=== PATIENT | male | born 1940 | race Caucasian/White ===

== ENCOUNTER 2018-12-24 18:16 | Observation (INO) | payer MEDICARE ==
[2018-12-24] MEDS ORDERED: Albuterol 0.083% Inhal Sol (2.5 mg/3 mL) UD INH STA (18:52)
[2018-12-24 19:01] LABS: BASO % 0.4 % (0.0-2.0); EOS # 0.5 K/uL (0.0-0.7); EOS % 5.4 % (0.0-4.0); HEMOGLOBIN 15.4 g/dL (12.0-18.0); LYMPH # 1.1 K/uL (1.0-4.3); LYMPH % 11.9 % (20.0-40.0); MEAN CELL VOLUME 92.2 fL (80.0-94.0); MEAN CORPUSCULAR HEMOGLOBIN 29.8 pg (27.0-31.0); MEAN CORPUSCULAR HGB CONC 32.3 g/dL (33.0-37.0); MEAN PLATELET VOLUME 7.8 fL (7.2-11.7); MONO # 0.9 K/uL (0.0-0.8); MONO % 9.6 % (0.0-10.0); NEUT # 6.7 K/uL (1.8-7.0); NEUT % 72.7 % (50.0-75.0); NRBC % 0.1 % (0.0-2.0); RBC 5.18 Mil/uL (4.40-5.90); RED CELL DISTRIBUTION WIDTH 14.1 % (11.5-14.5); WHITE BLOOD COUNT 9.2 K/uL (4.8-10.8)
[2018-12-24 19:12] LABS: INR 1.1; PROTHROMBIN TIME 11.8 SECONDS (9.7-12.2)
[2018-12-24] MEDS ORDERED: Albuterol 0.083% Inhal Sol (2.5 mg/3 mL) UD ONE (19:16)
[2018-12-24 19:51] LABS: ALB/GLOB RATIO 1.3 (1.0-2.1); ALBUMIN 4.2 g/dL (3.5-5.0); CALCIUM 9.9 mg/dl (8.6-10.4)
--- NOTE | 2018-12-24 19:55 | C.PDOC ---
History Of Present Illness 78 y/o male pt presents to the ER with family c/o SOB for x2 days. Pt reports pain is worse with exertion. Pt denies chest pain, chills, fever and cough. Time Seen by Provider: 12/24/18 18:43 Chief Complaint (Nursing): Shortness Of Breath History Per: Patient History/Exam Limitations: no limitations Onset/Duration Of Symptoms: Days (x2) Current Symptoms Are (Timing): Still Present Exacerbating Factor(s): Exertion Past Medical History Reviewed: Historical Data, Nursing Documentation, Vital Signs Vital Signs: Last Vital Signs Temp 99.7 F H 12/24/18 18:23 Pulse 93 H 12/24/18 18:23 Resp 18 12/24/18 18:30 BP 177/84 H 12/24/18 18:23 Pulse Ox 97 12/24/18 18:30 - Medical History PMH: HTN Surgical History: CABG - [facility] Procedures CORONAR ARTERIOGR-2 CATH (08/19/04) LEFT HEART CARDIAC CATH (08/19/04) LT HEART ANGIOCARDIOGRAM (08/19/04) Family History: States: No Known Family Hx - Social History Hx Alcohol Use: No Hx Substance Use: No Review Of Systems Except As Marked, All Systems Reviewed And Found Negative. Respiratory: Positive for: Shortness of Breath Physical Exam - Physical Exam Appears: Non-toxic, No Acute Distress Skin: Normal Color, Warm, Dry Head: Atraumatic, Normacephalic Eye(s): bilateral: Normal Inspection, PERRL, EOMI Nose: Normal Oral Mucosa: Moist Chest: Symmetrical Cardiovascular: Rhythm Regular, No Murmur Respiratory: No Accessory Muscle Use, No Rales, No Rhonchi, No Stridor, Wheezing (expiratory; b/l ) Gastrointestinal/Abdominal: Normal Exam, Soft, No Tenderness, No Distention Extremity: Normal ROM Extremity: Bilateral: Atraumatic, Normal Color And Temperature Neurological/Psych: Oriented x3, Normal Speech ED Course And Treatment - Laboratory Results Result Diagrams: 12/24/18 18:50 12/24/18 19:28 Lab Results: PT 11.8 SECONDS (9.7-12.2) 12/24/18 18:50 INR 1.1 12/24/18 18:50 APTT 35 SECONDS (21-34) H 12/24/18 18:50 D-Dimer, Quantitative Cancelled 12/24/18 18:50 Total Bilirubin 0.9 mg/dL (0.2-1.3) 12/24/18 19:28 AST 29 U/L (17-59) 12/24/18 19:28 ALT 17 U/L (21-72) L 12/24/18 19:28 Alkaline Phosphatase 64 U/L (38-126) 12/24/18 19:28 Total Protein 7.4 g/dL (6.3-8.3) 12/24/18 19:28 Albumin 4.2 g/dL (3.5-5.0) 12/24/18 19:28 Globulin 3.2 gm/dL (2.2-3.9) 12/24/18 19:28 Albumin/Globulin Ratio 1.3 (1.0-2.1) 12/24/18 19:28 ECG: Interpreted By Me, Viewed By Me ECG Rhythm: Sinus Rhythm Interpretation Of ECst degree AV block, incomplete RBBB, poor R wave progression, no ST/T wave abnormality Rate From EC O2 Sat by Pulse Oximetry: 97 (RA) Pulse Ox Interpretation: Normal Medical Decision Making Medical Decision Making: Assessment: SOB with b/l expiratory wheeze plans: -- chem labs -- blood work -- EKG -- CXR -- albuterol Disposition Discussed With : Yolanda García Counseled Patient/Family Regarding: Studies Performed, Diagnosis - Disposition Disposition: HOSPITALIZED Disposition Time: 20:15 Condition: FAIR Forms: [facility] (Polish) - Clinical Impression Clinical Impression: SOB (shortness of breath) - Scribe Statement The provider has reviewed the documentation as recorded by the Jovana Barriga Do Provider Attestation: All medical record entries made by the Scribe were at my direction and personally dictated by me. I have reviewed the chart and agree that the record accurately reflects my personal performance of the history, physical exam, medical decision making, and the department course for this patient. I have also personally directed, reviewed, and agree with the discharge instructions and disposition.
[2018-12-24 20:03] LABS: TROPONIN I 0.015 ng/mL (0.00-0.120)
[2018-12-24] MEDS ORDERED: Iohexol 350mg/ml 100 ML ONE (21:10)
[2018-12-24] MEDS: (Lantus) Insulin Glargine, Recombinant SC SCH (23:27)
[2018-12-24] MEDS: Albuterol-Ipratrop 3 mg / 0.5 (3 ml) UD INH SCH (23:58)
[2018-12-25 02:18] LABS: CK-MB 1.5 ng/mL (0.0-3.38); TROPONIN I 0.021 ng/mL (0.00-0.120)
[2018-12-25] MEDS: Albuterol-Ipratrop 3 mg / 0.5 (3 ml) UD INH SCH ×5 (03:22→20:05)
[2018-12-25] MEDS: (Novolog) Insulin Aspart, Recombinant 100 u/ml 10 ml vial SC SCH ×4 (08:38→22:05)
[2018-12-25 09:23] LABS: CK-MB 1.58 ng/mL (0.0-3.38)
[2018-12-25] MEDS: Enoxaparin 40 mg Syringe SC SCH (09:31)
[2018-12-25] MEDS: Multiple Vitamins Tab PO SCH (09:31)
--- NOTE | 2018-12-25 10:30 | CT ---
Date of service: 12/24/2018 PROCEDURE: CT Chest with contrast (Pulmonary Angiogram) HISTORY: r/o pe COMPARISON: None available. TECHNIQUE: Axial computed tomography images were obtained of the chest in the pulmonary arterial phase of enhancement. Coronal and sagittal reformatted images were created and reviewed. Intravenous contrast dose: 100 mL of Omnipaque 350 intravenously. Radiation dose: Total exam DLP = 619.04 mGy-cm. This CT exam was performed using one or more of the following dose reduction techniques: Automated exposure control, adjustment of the mA and/or kV according to patient size, and/or use of iterative reconstruction technique. FINDINGS: PULMONARY ARTERIES: Unremarkable. No pulmonary embolism. AORTA: The thoracic aorta is ectatic and tortuous. Small foci of atherosclerotic calcification are noted. LUNGS: [id number] pulmonary vascular congestion noted. No evidence of pneumonia or mass lesion in the lungs. PLEURAL SPACES: Unremarkable. No effusion or pneumothorax. HEART: The heart is mildly to moderately enlarged. No pericardial effusion is noted. LYMPH NODES: No lymphadenopathy. BONES, CHEST WALL: Unremarkable. No fracture or destructive lesion OTHER FINDINGS: Partially calcified nodule at the left thyroid gland is noted. The thyroid gland is heterogeneous. IMPRESSION: No evidence of acute pulmonary embolus. Cardiomegaly and mild pulmonary vascular congestion. Status post CABG surgery. Preliminary report was submitted by [facility] contains concordant findings.
[2018-12-25] MEDS ORDERED: SIMVASTATIN 20 MG PO SCH (14:45)
[2018-12-25] MEDS ORDERED: MethylPREDNISolone 40 mg Vial IVP ONE (15:00)
--- NOTE | 2018-12-25 15:00 | CP.PCM.HP ---
History of Present Illness - History of Present Illness History of Present Illness: This is an 78 y/o male with known history of CAD, S/P CABG more than 10 years ago, DM and HTN who was brought to the hospital because of shortness of breath. 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 He rportely developed runny nose but denies any cough at this time. He also noted some pedal edema at the same time. He denies any chest pain, palpitations, dizziness and syncope. He went to the ER for further eval and treatment and was eventually admitted. Present on Admission - Present on Admission Any Indicators Present on Admission: No Review of Systems - Constitutional Constitutional: Weakness - EENT Nose/Mouth/Throat: Nasal Congestion - Cardiovascular Cardiovascular: Dyspnea, Dyspnea on Exertion, Edema, Leg Edema, Pedal Edema - Respiratory Respiratory: Dyspnea, Dyspnea on Exertion, Wheezing - Gastrointestinal Gastrointestinal: As Per HPI - Genitourinary Genitourinary: As Per HPI Past Patient History - Past Medical History & Family History Past Medical History?: Yes - Past Social History Smoking Status: Never Smoked Alcohol: Social Drugs: Denies Home Situation {Lives}: With Family - CARDIAC Hx Cardiac Disorders: Yes (CAD, S/P CABG) Hx Hypertension: Yes - ENDOCRINE/METABOLIC Hx Endocrine Disorders: Yes Hx Diabetes Mellitus Type 2: Yes - MUSCULOSKELETAL/RHEUMATOLOGICAL Hx Arthritis: Yes Hx Falls: No - PSYCHIATRIC Hx Psychophysiologic Disorder: No Hx Substance Use: No - SURGICAL HISTORY Hx Coronary Artery Bypass Graft: Yes - ANESTHESIA Hx Anesthesia: Yes Hx Anesthesia Reactions: No Hx Malignant Hyperthermia: No Has any member of the family had a problem w/ anesthesia?: No Meds Allergies/Adverse Reactions: Allergies Allergy/AdvReac Type Severity Reaction Status Date / Time No Known Allergies Allergy Unverified 12/24/18 18:27 Physical Exam - Constitutional Appears: No Acute Distress - Eye Exam Eye Exam: Normal appearance - ENT Exam ENT Exam: Normal Exam - Neck Exam Neck exam: Positive for: Full Rom - Respiratory Exam Respiratory Exam: Rhonchi, Wheezes - Cardiovascular Exam Cardiovascular Exam: REGULAR RHYTHM, +S1, +S2 - GI/Abdominal Exam GI & Abdominal Exam: Normal Bowel Sounds, Soft - Rectal Exam Rectal Exam: Deferred - Extremities Exam Extremities exam: Positive for: normal inspection, pedal edema - Neurological Exam Neurological exam: Alert, Oriented x3 - Psychiatric Exam Psychiatric exam: Normal Affect, Normal Mood - Skin Skin Exam: Dry, Intact, Normal Color, Warm Results - Vital Signs Recent Vital Signs: Last Vital Signs Temp 98 F 12/25/18 11:52 Pulse 80 12/25/18 12:00 Resp 20 12/25/18 11:52 BP 150/75 12/25/18 11:52 Pulse Ox 95 12/25/18 11:52 - Labs Result Diagrams: 12/24/18 18:50 12/24/18 19:28 Labs: Laboratory Results - last 24 hr 12/24/18 12/24/18 12/24/18 18:50 18:50 19:28 WBC 9.2 RBC 5.18 Hgb 15.4 Hct 47.7 MCV 92.2 MCH 29.8 MCHC 32.3 L RDW 14.1 Plt Count 239 MPV 7.8 Neut % (Auto) 72.7 Lymph % (Auto) 11.9 L [place] % (Auto) 9.6 Eos % (Auto) 5.4 H Baso % (Auto) 0.4 Neut # (Auto) 6.7 Lymph # (Auto) 1.1 [place] # (Auto) 0.9 H Eos # (Auto) 0.5 Baso # (Auto) 0.0 PT 11.8 INR 1.1 APTT 35 H D-Dimer, Quantitative Cancelled Sodium 136 Potassium 4.2 Chloride 98 Carbon Dioxide 29 Anion Gap 13 BUN 22 H Creatinine 1.5 Est GFR ( Amer) 54 Est GFR (Non-Af Amer) 45 POC Glucose (mg/dL) Random Glucose 183 H Calcium 9.9 Total Bilirubin 0.9 AST 29 ALT 17 L Alkaline Phosphatase 64 Total Creatine Kinase CK-MB (Mass) Troponin I 0.0150 NT-Pro-B Natriuret Pep 365 Total Protein 7.4 Albumin 4.2 Globulin 3.2 Albumin/Globulin Ratio 1.3 12/24/18 12/25/18 12/25/18 20:27 01:52 06:18 WBC RBC Hgb Hct MCV MCH MCHC RDW Plt Count MPV Neut % (Auto) Lymph % (Auto) [place] % (Auto) Eos % (Auto) Baso % (Auto) Neut # (Auto) Lymph # (Auto) [place] # (Auto) Eos # (Auto) Baso # (Auto) PT INR APTT D-Dimer, Quantitative 459 H Sodium Potassium Chloride Carbon Dioxide Anion Gap BUN Creatinine Est GFR ( Amer) Est GFR (Non-Af Amer) POC Glucose (mg/dL) 188 H Random Glucose Calcium Total Bilirubin AST ALT Alkaline Phosphatase Total Creatine Kinase 128 CK-MB (Mass) 1.50 Troponin I 0.0210 NT-Pro-B Natriuret Pep Total Protein Albumin Globulin Albumin/Globulin Ratio 12/25/18 12/25/18 08:30 11:18 WBC RBC Hgb Hct MCV MCH MCHC RDW Plt Count MPV Neut % (Auto) Lymph % (Auto) [place] % (Auto) Eos % (Auto) Baso % (Auto) Neut # (Auto) Lymph # (Auto) [place] # (Auto) Eos # (Auto) Baso # (Auto) PT INR APTT D-Dimer, Quantitative Sodium Potassium Chloride Carbon Dioxide Anion Gap BUN Creatinine Est GFR ( Amer) Est GFR (Non-Af Amer) POC Glucose (mg/dL) 303 H Random Glucose Calcium Total Bilirubin AST ALT Alkaline Phosphatase Total Creatine Kinase 117 CK-MB (Mass) 1.58 Troponin I < 0.0120 NT-Pro-B Natriuret Pep Total Protein Albumin Globulin Albumin/Globulin Ratio Assessment & Plan (1) SOB (shortness of breath) Assessment and Plan: CHF and/or COPD- will continue O2, Nebulizer treatments, add Solu- medrol for now. Lasix 40 mg ordered. Measure I/O Status: Acute Priority: High (2) CAD (coronary artery disease) Assessment and Plan: History of CAD S/P CABG. Will get serial enzymes and EKG. Continue rest of his meds. Status: Chronic Priority: High (3) Type 2 diabetes mellitus Assessment and Plan: Will put on Accucheck and hypoglycemic agents. Will put patient back on Tresiba. Status: Chronic Priority: High (4) Hypertension Assessment and Plan: not well-controlled at this time. Will adjust meds for now Status: Chronic Priority: High (5) Hyperlipidemia associated with type 2 diabetes mellitus Status: Chronic Priority: Medium Decision To Admit - Pt Status Changed To: Hospital Disposition Of: Inpatient - Admit Certification Admit to Inpatient:: After my assessment, the patient will require hosp italization for at least two midnights. This is because of the severity of symptoms shown, intensity of services needed, and/or the medical risk in this patient being treated as an outpatient. - InPatient: Physician Admission Certification:: After my assessment, the patient will require hospitalization for at least two midnights. This is because of the denis rity of symptoms shown, intensity of services needed, and/or the medical risk in this patient being treated as an outpatient. - . Bed Request Type: Telemetry Admitting Physician: Alysha Faust
--- NOTE | 2018-12-25 16:13 | RAD ---
Date of service: 12/24/2018 HISTORY: sob COMPARISON: No prior. TECHNIQUE: 1 view obtained. FINDINGS: LUNGS: No active pulmonary disease. PLEURA: No significant pleural effusion identified, no pneumothorax apparent. CARDIOVASCULAR: No aortic atherosclerotic calcification present. Normal cardiac size. No pulmonary vascular congestion. OSSEOUS STRUCTURES: No significant abnormalities. VISUALIZED UPPER ABDOMEN: Normal. OTHER FINDINGS: None. IMPRESSION: No active disease.
[2018-12-25] MEDS ORDERED: COZAAR 100 MG PO SCH (18:00)
[2018-12-25] MEDS: (Lantus) Insulin Glargine, Recombinant SC SCH (22:05)
[2018-12-26] MEDS: Albuterol-Ipratrop 3 mg / 0.5 (3 ml) UD INH SCH ×4 (00:27→11:15)
[2018-12-26] MEDS: (Novolog) Insulin Aspart, Recombinant 100 u/ml 10 ml vial SC SCH ×2 (08:00→12:20)
[2018-12-26 08:19] LABS: BASO % 0.2 % (0.0-2.0); HEMOGLOBIN 14.9 g/dL (12.0-18.0); LYMPH # 1.2 K/uL (1.0-4.3); LYMPH % 13.1 % (20.0-40.0); MEAN CORPUSCULAR HGB CONC 33.7 g/dL (33.0-37.0); MEAN PLATELET VOLUME 7.9 fL (7.2-11.7); MONO # 0.6 K/uL (0.0-0.8); MONO % 7.2 % (0.0-10.0); NEUT % 79.5 % (50.0-75.0); NRBC % 0.1 % (0.0-2.0); RBC 4.82 Mil/uL (4.40-5.90); WHITE BLOOD COUNT 8.8 K/uL (4.8-10.8)
[2018-12-26 08:29] LABS: ALB/GLOB RATIO 1.4 (1.0-2.1); ALBUMIN 4.4 g/dL (3.5-5.0); CALCIUM 9.2 mg/dl (8.6-10.4)
[2018-12-26] MEDS: Enoxaparin 40 mg Syringe SC SCH (09:48)
[2018-12-26] MEDS ORDERED: Multiple Vitamins Tab PO SCH (10:00)
[2018-12-26] MEDS: Multiple Vitamins Tab PO SCH (10:13)
[2018-12-26 11:29] VITALS: O2SAT 95
--- NOTE | 2018-12-26 14:40 | CP.PCM.DIS ---
Provider - Provider Date of Admission: 12/24/18 20:14 Attending physician: Alysha Faust MD Primary care physician: Mara Faust Consults: 12/24/18 22:53 Cardiology Consult Routine Comment: SOB Consulting Provider: Alysha Faust Consulting Physician: Alysha Faust Reason for Consult: SOB Diagnosis - Discharge Diagnosis (1) SOB (shortness of breath) Status: Acute Priority: High Comment: improving but still has some rhonchi,, slight wheeze.Comfortable though and no orthopnea noted. Will continue with po steroids and nebulizers. Will discharge today and follow up outpatient. (2) CAD (coronary artery disease) Status: Chronic Priority: Medium Comment: stable (3) Type 2 diabetes mellitus Status: Chronic Priority: High (4) Hypertension Status: Chronic Priority: High (5) Hyperlipidemia associated with type 2 diabetes mellitus Status: Chronic Priority: Medium Hospital Course - Lab Results Lab Results: Most Recent Lab Values WBC 8.8 K/uL (4.8-10.8) 12/26/18 07:57 RBC 4.82 Mil/uL (4.40-5.90) 12/26/18 07:57 Hgb 14.9 g/dL (12.0-18.0) 12/26/18 07:57 Hct 44.4 % (35.0-51.0) 12/26/18 07:57 MCV 92.0 fL (80.0-94.0) 12/26/18 07:57 MCH 31.0 pg (27.0-31.0) 12/26/18 07:57 MCHC 33.7 g/dL (33.0-37.0) 12/26/18 07:57 RDW 14.0 % (11.5-14.5) 12/26/18 07:57 Plt Count 240 K/uL (130-400) 12/26/18 07:57 MPV 7.9 fL (7.2-11.7) 12/26/18 07:57 Neut % (Auto) 79.5 % (50.0-75.0) H 12/26/18 07:57 Lymph % (Auto) 13.1 % (20.0-40.0) L 12/26/18 07:57 [place] % (Auto) 7.2 % (0.0-10.0) 12/26/18 07:57 Eos % (Auto) 0.0 % (0.0-4.0) 12/26/18 07:57 Baso % (Auto) 0.2 % (0.0-2.0) 12/26/18 07:57 Neut # (Auto) 7.0 K/uL (1.8-7.0) 12/26/18 07:57 Lymph # (Auto) 1.2 K/uL (1.0-4.3) 12/26/18 07:57 [place] # (Auto) 0.6 K/uL (0.0-0.8) 12/26/18 07:57 Eos # (Auto) 0.0 K/uL (0.0-0.7) 12/26/18 07:57 Baso # (Auto) 0.0 K/uL (0.0-0.2) 12/26/18 07:57 PT 11.8 SECONDS (9.7-12.2) 12/24/18 18:50 INR 1.1 12/24/18 18:50 APTT 35 SECONDS (21-34) H 12/24/18 18:50 D-Dimer, Quantitative 459 ng/mlDDU (0-243) H 12/24/18 20:27 Sodium 135 mmol/L (132-148) 12/26/18 07:57 Potassium 4.5 mmol/L (3.6-5.2) 12/26/18 07:57 Chloride 99 mmol/L (98-107) 12/26/18 07:57 Carbon Dioxide 23 mmol/L (22-30) 12/26/18 07:57 Anion Gap 17 (10-20) 12/26/18 07:57 BUN 34 mg/dL (9-20) H 12/26/18 07:57 Creatinine 1.6 mg/dL (0.8-1.5) H 12/26/18 07:57 Est GFR ( Amer) 51 12/26/18 07:57 Est GFR (Non-Af Amer) 42 12/26/18 07:57 POC Glucose (mg/dL) 282 mg/dL (65-110) H 12/26/18 11:48 Random Glucose 205 mg/dL (75-110) H 12/26/18 07:57 Hemoglobin A1c 8.0 % (4.2-6.5) H 12/26/18 07:57 Calcium 9.2 mg/dl (8.6-10.4) 12/26/18 07:57 Total Bilirubin 0.5 mg/dL (0.2-1.3) 12/26/18 07:57 AST 20 U/L (17-59) 12/26/18 07:57 ALT 10 U/L (21-72) L D 12/26/18 07:57 Alkaline Phosphatase 60 U/L (38-126) 12/26/18 07:57 Total Creatine Kinase 117 U/L (55-170) 12/25/18 08:30 CK-MB (Mass) 1.58 ng/mL (0.0-3.38) 12/25/18 08:30 Troponin I < 0.0120 ng/mL (0.00-0.120) 12/25/18 08:30 NT-Pro-B Natriuret Pep 365 pg/mL (0-900) 12/24/18 19:28 Total Protein 7.6 g/dL (6.3-8.3) 12/26/18 07:57 Albumin 4.4 g/dL (3.5-5.0) 12/26/18 07:57 Globulin 3.2 gm/dL (2.2-3.9) 12/26/18 07:57 Albumin/Globulin Ratio 1.4 (1.0-2.1) 12/26/18 07:57 Discharge Plan - Follow Up Plan Condition: FAIR Disposition: HOME/ ROUTINE
[2018-12-26 17:23] VITALS: BP 134/82; PULSE 82; RESP 20; TEMP 98
--- NOTE | 2018-12-27 09:22 | HP ---
HISTORY OF PRESENT ILLNESS: The patient admitted to the hospital with diabetes, hypertension, coronary artery disease. PHYSICAL EXAMINATION: GENERAL: The patient is awake, alert, and oriented. VITAL SIGNS: Temperature 98, pulse 90. HEENT: Within normal limits. NECK: Supple. CHEST: Symmetrical. HEART: Regular. ABDOMEN: Soft. EXTREMITIES: No edema. IMPRESSION AND PLAN: The patient suffers from bronchitis. Patient on bedrest, bronchodilators, Cardiology evaluation. Yolanda García MD
--- NOTE | 2018-12-27 15:01 | CARD ---
APPROVED REPORT Date of service: 12/24/2018 EKG Measurement Heart [id number] <Conclusion> Sinus rhythm with 1st degree AV block Incomplete right bundle branch block Septal infarct, age undetermined Abnormal ECG
--- NOTE | 2018-12-30 07:23 | CARD ---
APPROVED REPORT Date of service: 12/25/2018 EKG Measurement Heart [id number] <Conclusion> Sinus rhythm with 1st degree AV block Incomplete right bundle branch block Nonspecific T wave abnormality Abnormal ECG
== END 2018-12-26 17:00 | disposition home or self-care (01) ==
LOC: C.ER 18:16 → C.6T 20:14
PROVIDERS: ADMIT Internal Medicine Cardiovascular Disease; ATTEND Internal Medicine Cardiovascular Disease
DX: J40 Bronchitis, not specified as acute or chronic (principal); E11.69 Type 2 diabetes mellitus with other specified complication; E78.5 Hyperlipidemia, unspecified; I10 Essential (primary) hypertension; I25.10 Atherosclerotic heart disease of native coronary artery without angina pectoris; Z95.1 Presence of aortocoronary bypass graft
CPT/HCPCS: 36415; 71045; 71275; 80053; 82948; 83036; 83880; 84484; 85025; 85378; 85610; 85730; 93005; 94640; 96372; 96374; 96375; 96376; 97116; 97162; 99285; G0378; G8978; G8979; J1650; J1940; J2920; Q9967

== ENCOUNTER 2019-01-08 05:42 | Inpatient (IN) | payer MEDICARE ==
--- NOTE | 2019-01-08 05:47 | C.PDOC ---
History Of Present Illness Patient is brought to the ED by EMS for evaluation of worsening SOB since 03:00. Patient reports using his nebulizer at home with no relief. EMS gave nebulizer en route and 2 sl nitro with mild improvement. Patient was recently admitted to the hospital for same presentation. Patient denies fever, chills, nausea, vomit, headache, rash, CP, palpitations. Speaking in 1-2 word sentences Time Seen by Provider: 01/08/19 05:46 History Per: Patient, EMS History/Exam Limitations: no limitations Onset/Duration Of Symptoms: Hrs (03:00) Current Symptoms Are (Timing): Still Present Initiating Event: Other Quality: Tightness Exacerbating Factor(s): Coughing Current Respiratory Medications: See Home Med List Severity: Severe Pain Scale Rating Of: 8 Associated Symptoms: Ankle/Leg Swelling Reports Recently: Seen In ED, Treated By A Physician, Hospitalized Recent travel outside of the [place]: No Additional History Per: Patient, EMS, Family Past Medical History Reviewed: Historical Data, Nursing Documentation, Vital Signs - Medical History PMH: Arthritis, HTN Surgical History: CABG - [facility] Procedures CORONAR ARTERIOGR-2 CATH (08/19/04) LEFT HEART CARDIAC CATH (08/19/04) LT HEART ANGIOCARDIOGRAM (08/19/04) Family History: States: Unknown Family Hx - Social History Hx Alcohol Use: No Hx Substance Use: No Review Of Systems Constitutional: Negative for: Fever, Chills Cardiovascular: Negative for: Chest Pain, Palpitations Respiratory: Positive for: Cough, Shortness of Breath. Negative for: Sputum, Wheezing Gastrointestinal: Negative for: Nausea, Vomiting, Abdominal Pain Skin: Negative for: Rash Neurological: Negative for: Weakness, Numbness, Headache, Dizziness Physical Exam - Physical Exam Appears: Non-toxic, In Acute Distress Skin: Warm, Diaphoretic Head: Normacephalic Eye(s): bilateral: Normal Inspection Oral Mucosa: Moist Neck: Supple Chest: Symmetrical, Other (CABG scar) Cardiovascular: Rhythm Regular (tachy) Respiratory: Decreased Breath Sounds, Rales (at the bases), No Rhonchi, Wheezing Gastrointestinal/Abdominal: Soft, No Tenderness, Distention, No Guarding, No Rebound, Other (tympanic to percussion ) Back: No CVA Tenderness Extremity: Pedal Edema (bilateral ), Capillary Refill (< 2 seconds) Extremity: Bilateral: Atraumatic, Normal ROM Pulses: Left Dorsalis Pedis: Normal, Right Dorsalis Pedis: Normal Neurological/Psych: Oriented x3 Gait: Unable To Assess ED Course And Treatment - Laboratory Results Result Diagrams: 01/08/19 06:16 ECG: Interpreted By Me, Viewed By Me ECG Rhythm: Sinus Tachycardia (129), R BBB, ST/T Changes O2 Sat by Pulse Oximetry: 96 Pulse Ox Interpretation: Normal - Radiology CXR: Interpreted by Me, Viewed By Me CXR Interpretation: Yes: Other (cabg, unchanged from 12/24/18). No: Infiltrates, Fracture, Cardiomegaly Progress Note: Plan: - ABG. - EKG. - Labs. - CXR. - Lasix 40 mg IVP Critical Care Time - Critical Care Note Total Time (in mins): 30 Documented critical care: time excludes all time spent performing seperately billable procedures. Disposition Counseled Patient/Family Regarding: Studies Performed, Diagnosis - Disposition Disposition Time: 05:47 Condition: GUARDED - Clinical Impression Clinical Impression: Dyspnea, Respiratory distress, CHF (congestive heart failure) - Scribe Statement The provider has reviewed the documentation as recorded by the Scribe Dk Collazo All medical record entries made by the Scribe were at my direction and personally dictated by me. I have reviewed the chart and agree that the record accurately reflects my personal performance of the history, physical exam, medical decision making, and the department course for this patient. I have also personally directed, reviewed, and agree with the discharge instructions and disposition. Physician Patient Turnover Patient Signed Over To: Judson Gonzales V Handoff Comments: pending labs, re-eval and dispostion
[2019-01-08 06:16] LABS: ABG ALLEN TEST POS; ARTERIAL BLOOD GAS HCO3 23.5 mmol/L (21-28); ARTERIAL BLOOD GAS O2 SAT 98.4 % (95-98); ARTERIAL BLOOD GAS PCO2 53 mm/Hg (35-45); ARTERIAL BLOOD GAS PH 7.29 (7.35-7.45); ARTERIAL BLOOD GAS PO2 223 mm/Hg (80-100); ARTERIAL BLOOD GAS TCO2 27.1 mmol/L (22-28)
[2019-01-08 06:19] LABS: BASO % 0.3 % (0.0-2.0); EOS # 0.3 K/uL (0.0-0.7); EOS % 1.7 % (0.0-4.0); HEMOGLOBIN 14.8 g/dL (12.0-18.0); LYMPH # 1.7 K/uL (1.0-4.3); LYMPH % 10.5 % (20.0-40.0); MEAN CELL VOLUME 93.1 fL (80.0-94.0); MEAN CORPUSCULAR HEMOGLOBIN 30.2 pg (27.0-31.0); MEAN CORPUSCULAR HGB CONC 32.4 g/dL (33.0-37.0); MEAN PLATELET VOLUME 7.9 fL (7.2-11.7); MONO # 0.9 K/uL (0.0-0.8); MONO % 5.7 % (0.0-10.0); NEUT # 13.2 K/uL (1.8-7.0); NEUT % 81.8 % (50.0-75.0); RBC 4.89 Mil/uL (4.40-5.90); RED CELL DISTRIBUTION WIDTH 14.1 % (11.5-14.5); WHITE BLOOD COUNT 16.2 K/uL (4.8-10.8)
[2019-01-08] MEDS ORDERED: Piperacillin/Tazobact 3.375 gm 100 ML IVPB STA (06:29)
[2019-01-08] MEDS ORDERED: Piperacillin/Tazobact 3.375 gm 100 ML IVPB ONE (06:35)
[2019-01-08 06:48] LABS: ALB/GLOB RATIO 1.3 (1.0-2.1); ALBUMIN 4.5 g/dL (3.5-5.0); ALT/SGPT < 6 U/L (21-72); AST/SGOT 42 U/L (17-59); B-TYPE NATRIURETIC PEPTIDE 130 pg/mL (0-900); BLOOD UREA NITROGEN 22 mg/dL (9-20); CALCIUM 9.6 mg/dl (8.6-10.4); GFR NON-AFRICAN AMERICAN 49
[2019-01-08 06:49] LABS: PROTHROMBIN TIME 11.2 SECONDS (9.7-12.2)
[2019-01-08] MEDS ORDERED: Albuterol-Ipratrop 3 mg / 0.5 (3 ml) UD INH STA ×2 (07:14→09:13)
[2019-01-08] MEDS ORDERED: Magnesium Sulfate 1 gm in D5W 1 GM/100 ML BAG IVPB ONE ×3 (07:32→20:00)
[2019-01-08] MEDS ORDERED: Albuterol-Ipratrop 3 mg / 0.5 (3 ml) UD ONE ×2 (07:35→09:16)
--- NOTE | 2019-01-08 08:36 | RAD ---
Chest x-ray single frontal view History: Shortness of breath. Comparison: None. Findings: Biapical pleural thickening with upper lobe granulomatous changes. Mild nodularity at the right apex. Patchy increased markings at the left lung base. Status post median sternotomy and CABG. Suggestion of some calcification at the level of the left hilum. Right hilar prominence. Tortuous ectatic aorta. Mild cardiomegaly. Degenerative changes in the spine and shoulders. Impression: Biapical pleural thickening with upper lobe granulomatous changes. Mild nodularity at the right apex. Patchy increased markings at the left lung base. Status post median sternotomy and CABG. Suggestion of some calcification at the level of the left hilum. Right hilar prominence. Tortuous ectatic aorta. Mild cardiomegaly. Degenerative changes in the spine and shoulders.
[2019-01-08] MEDS ORDERED: MethylPREDNISolone 40 mg Vial ONE (09:27)
[2019-01-08] MEDS ORDERED: MethylPREDNISolone 40 mg Vial IVP ONE (09:30)
[2019-01-08 09:39] LABS: ABG ALLEN TEST POSTIVE; ARTERIAL BLOOD GAS HCO3 21.8 mmol/L (21-28); ARTERIAL BLOOD GAS O2 SAT 98.8 % (95-98); ARTERIAL BLOOD GAS PCO2 60 mm/Hg (35-45); ARTERIAL BLOOD GAS PH 7.22 (7.35-7.45); ARTERIAL BLOOD GAS PO2 260 mm/Hg (80-100); ARTERIAL BLOOD GAS TCO2 26.4 mmol/L (22-28)
[2019-01-08 09:47] LABS: URINE BILIRUBIN NEGATIVE (NEGATIVE); URINE BLOOD 1+ (NEGATIVE); URINE CLARITY Clear (Clear); URINE COLOR Yellow (YELLOW); URINE GLUCOSE (UA) 1+ mg/dL (Normal); URINE LEUKOCYTE ESTERASE NEG Leu/uL (Negative); URINE PROTEIN 1+ mg/dL (NEGATIVE); URINE UROBILINOGEN NORMAL mg/dL (0.2-1.0)
[2019-01-08] MEDS ORDERED: Sodium Chloride 0.9% 1,000 ML IV ONE (10:15)
[2019-01-08] MEDS: Propofol 10 mg/ml 1,000 MG/100 ML VIAL IV PRN ×2 (10:30→21:34)
[2019-01-08] MEDS ORDERED: Midazolam 50 mg/10 ml 100 MG in Sodium Chloride 0.9% 80 ML IV ONE (10:31)
[2019-01-08] MEDS ORDERED: Succinylcholine Chloride 20 mg/ml Syr (5 ml) IV STA (10:34)
[2019-01-08] MEDS ORDERED: Etomidate 20 mg/10ml Inj IV ONE (10:34)
[2019-01-08] MEDS ORDERED: Propofol 10 mg/ml Inj (20 ML) IV ONE (10:35)
--- NOTE | 2019-01-08 10:37 | CP.PCM.HP ---
History of Present Illness - History of Present Illness History of Present Illness: Chief complaint: Shortness of breath HPI: 78-year-old male with a history of heart disease, congestive heart failure, history of bronchitis, history of recently admitted to the hospital with a similar symptoms. Patient also has a history of hypertension, hyperlipidemia history of coronary artery bypass grafting in the past. 2 weeks ago patient was hospitalized with acute exacerbation of her bronchitis. He was given antibiotic and a corticosteroid. Patient completed the treatment. But now having come to the emergency room with worsening symptoms. 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 In the emergency room patient was evaluated, he was given multiple rounds of inhalers, corticosteroid, and Lasix, with no improvement. He started having increasing chest tightness. He was not intubated as an emergency as there was no improvement in the oxygenation. Patient needed present hospitalization to the intensive care unit. Past medical history: Hypertension, hyperlipidemia, CAD, status post bypass grafting. Surgical history includes a bypass grafting Allergies no known drug allergy Patient is a non-smoker. Nonalcoholic. Patient is compliant with medications. Family history significant for heart disease. On examination: Patient is severely respiratory distress. Intubated. Intensive care unit. Chest bilateral wheezing and tightness noted. Regular [place] noted. Nontender abdomen. No pedal edema X-ray showing evidence of CHF pattern. Labs reviewed ABG showing elevation of CO2. Assessment and recommendation: 78-year-old male with a history of hypertension heart disease and a history of heart failure. Patient admitted with the, Admitted with acute respiratory insufficiency, needing ventilation at this time. Patient will be closely monitored. ICU monitoring. DVT GI prophylaxis. Antibiotic for presumptive pneumonia. Cardiac enzymes monitoring, heart failure treatment. Cardiology evaluation and management. Ventilator management and will follow the patient Present on Admission - Present on Admission Any Indicators Present on Admission: No History of DVT/PE: No History of Uncontrolled Diabetes: No Urinary Catheter: No Decubitus Ulcer Present: No Past Patient History - Past Medical History & Family History Past Medical History?: Yes - Past Social History Smoking Status: Never Smoked - CARDIAC Hx Hypertension: Yes - ENDOCRINE/METABOLIC Hx Endocrine Disorders: Yes Hx Diabetes Mellitus Type 2: Yes - MUSCULOSKELETAL/RHEUMATOLOGICAL Hx Arthritis: Yes - PSYCHIATRIC Hx Substance Use: No - SURGICAL HISTORY Hx Coronary Artery Bypass Graft: Yes - ANESTHESIA Hx Anesthesia: Yes Hx Anesthesia Reactions: No Hx Malignant Hyperthermia: No Meds Allergies/Adverse Reactions: Allergies Allergy/AdvReac Type Severity Reaction Status Date / Time No Known Allergies Allergy Unverified 12/24/18 18:27 Results - Vital Signs Recent Vital Signs: Last Vital Signs Temp 98.3 F 01/08/19 05:52 Pulse 118 H 01/08/19 10:30 Resp 13 01/08/19 10:30 BP 116/75 01/08/19 10:30 Pulse Ox 100 01/08/19 10:30 - Labs Result Diagrams: 01/11/19 06:23 01/11/19 06:23 Labs: Laboratory Results - last 24 hr 01/08/19 01/08/19 01/08/19 06:01 06:14 06:16 WBC 16.2 H D RBC 4.89 Hgb 14.8 Hct 45.5 MCV 93.1 MCH 30.2 MCHC 32.4 L RDW 14.1 Plt Count 252 MPV 7.9 Neut % (Auto) 81.8 H Lymph % (Auto) 10.5 L [place] % (Auto) 5.7 Eos % (Auto) 1.7 Baso % (Auto) 0.3 Neut # (Auto) 13.2 H Lymph # (Auto) 1.7 [place] # (Auto) 0.9 H Eos # (Auto) 0.3 Baso # (Auto) 0.0 PT INR APTT Puncture Site Rr pCO2 53 H pO2 223 H HCO3 23.5 ABG pH 7.29 L ABG Total CO2 27.1 ABG O2 Saturation 98.4 H ABG Base Excess -1.9 Álvaro Test Pos ABG Potassium 3.8 A-a O2 Difference 67.0 Respiratory Index 0.3 Sodium 135.0 136 Chloride 102.0 101 Glucose 247 H Lactate 1.7 Vent Mode Bipap Mechanical Rate 12 FiO2 50.0 Inspiratory BiPAP 12 Expiratory BiPAP 6 Crit Value Called To Crit Value Called By Crit Value Read Back Blood Gas Notified Time Potassium 4.8 Carbon Dioxide 22 Anion Gap 18 BUN 22 H Creatinine 1.4 Est GFR ( Amer) 59 Est GFR (Non-Af Amer) 49 Random Glucose 229 H Calcium 9.6 Magnesium 2.0 Total Bilirubin 0.9 AST 42 ALT < 6 L D Alkaline Phosphatase 58 Troponin I < 0.0120 NT-Pro-B Natriuret Pep 130 Total Protein 7.8 Albumin 4.5 Globulin 3.3 Albumin/Globulin Ratio 1.3 Arterial Blood Potassium 3.8 Urine Color Urine Clarity Urine pH Ur Specific [place] Urine Protein Urine Glucose (UA) Urine Ketones Urine Blood Urine Nitrate Urine Bilirubin Urine Urobilinogen Ur Leukocyte Esterase Urine WBC (Auto) Urine RBC (Auto) 01/08/19 01/08/19 01/08/19 06:16 09:33 09:35 WBC RBC Hgb Hct MCV MCH MCHC RDW Plt Count MPV Neut % (Auto) Lymph % (Auto) [place] % (Auto) Eos % (Auto) Baso % (Auto) Neut # (Auto) Lymph # (Auto) [place] # (Auto) Eos # (Auto) Baso # (Auto) PT 11.2 INR 1.0 APTT 30 Puncture Site Rr pCO2 60 H pO2 260 H HCO3 21.8 ABG pH 7.22 L ABG Total CO2 26.4 ABG O2 Saturation 98.8 H ABG Base Excess -4.1 L Álvaro Test Postive ABG Potassium 4.2 A-a O2 Difference -85.0 Respiratory Index -0.3 Sodium 136.0 Chloride 100.0 Glucose 330 H Lactate 3.3 H Vent Mode Bipap Mechanical Rate FiO2 35.0 Inspiratory BiPAP 18 Expiratory BiPAP 8 Crit Value Called To [place] Crit Value Called By Jenni Crit Value Read Back Y Blood Gas Notified Time 939 Potassium Carbon Dioxide Anion Gap BUN Creatinine Est GFR ( Amer) Est GFR (Non-Af Amer) Random Glucose Calcium Magnesium Total Bilirubin AST ALT Alkaline Phosphatase Troponin I NT-Pro-B Natriuret Pep Total Protein Albumin Globulin Albumin/Globulin Ratio Arterial Blood Potassium 4.2 Urine Color Yellow Urine Clarity Clear Urine pH 5.0 Ur Specific [place] 1.009 Urine Protein 1+ H Urine Glucose (UA) 1+ H Urine Ketones Negative Urine Blood 1+ H Urine Nitrate Negative Urine Bilirubin Negative Urine Urobilinogen Normal Ur Leukocyte Esterase Neg Urine WBC (Auto) 1 Urine RBC (Auto) 7 H
[2019-01-08] MEDS: Albuterol 0.083% Inhal Sol (2.5 mg/3 mL) UD IH SCH ×3 (11:19→20:04)
[2019-01-08] MEDS: Sodium Chloride 0.9% 1,000 ML IV SCH (12:29)
--- NOTE | 2019-01-08 13:07 | RAD ---
Chest x-ray single frontal view HISTORY: Post intubation. COMPARISON: 01/08/2019 Findings: Endotracheal tube extending into the midthoracic trachea. Mild venous congestion. Status post median sternotomy. Atherosclerotic calcification at the aortic knob. Tortuous aorta. Cardiomegaly. Degenerative changes in the spine. Impression: Endotracheal tube extending into the midthoracic trachea. Mild venous congestion. Status post median sternotomy. Atherosclerotic calcification at the aortic knob. Tortuous aorta. Cardiomegaly.
[2019-01-08 13:44] LABS: ARTERIAL BLOOD GAS HEMOGLOBIN 12.9 g/dL (11.7-17.4); ARTERIAL BLOOD GAS O2 SAT 98.6 % (95-98); ARTERIAL BLOOD GAS PCO2 43 mm/Hg (35-45); ARTERIAL BLOOD GAS PO2 168 mm/Hg (80-100); ARTERIAL BLOOD GAS TCO2 22.5 mmol/L (22-28)
[2019-01-08] MEDS: Piperacillin/Tazobact 3.375 GM in Sodium Chloride 100 ML IVPB SCH ×2 (14:39→18:37)
[2019-01-08] MEDS: MethylPREDNISolone 40 mg Vial IVP SCH ×2 (14:40→21:33)
[2019-01-08] MEDS: (Novolog) Insulin Aspart, Recombinant 100 u/ml 10 ml vial SC SCH ×2 (18:36→23:52)
--- NOTE | 2019-01-08 20:43 | CP.PCM.CON ---
History of Present Illness - History of Present Illness History of Present Illness: This is an 78 y/o male with known history of CAD, S/P CABG more than 10 years ago, DM and HTN who was brought to the hospital because of shortness of breath. Patient was in respiratory failure eventually leading to intubation Present on Admission - Present on Admission Any Indicators Present on Admission: No Review of Systems - Constitutional Constitutional: Weakness - EENT Nose/Mouth/Throat: Nasal Congestion - Cardiovascular Cardiovascular: Dyspnea, Dyspnea on Exertion, Edema, Leg Edema, Pedal Edema - Respiratory Respiratory: Dyspnea, Dyspnea on Exertion, Wheezing - Gastrointestinal Gastrointestinal: As Per HPI - Genitourinary Genitourinary: As Per HPI Physical Exam - Constitutional Appears: Intubated - Eye Exam Eye Exam: Normal appearance - ENT Exam ENT Exam: Normal Exam - Neck Exam Neck exam: Positive for: Full Rom - Respiratory Exam Respiratory Exam: Rhonchi, Wheezes - Cardiovascular Exam Cardiovascular Exam: REGULAR RHYTHM, +S1, +S2 - GI/Abdominal Exam GI & Abdominal Exam: Normal Bowel Sounds, Soft - Rectal Exam Rectal Exam: Deferred - Extremities Exam Extremities exam: Positive for: normal inspection, pedal edema - Neurological Exam Neurological exam: Intubated - Psychiatric Exam Psychiatric exam: Normal Affect, Normal Mood - Skin Skin Exam: Dry, Intact, Normal Color, Warm Assessment & Plan (1) SOB (shortness of breath) Assessment and Plan: Exacerbation of COPD/Bronchitis- Possible sepsis Pro BNP and Trop normal Status: Acute Priority: High (2) CAD (coronary artery disease) Assessment and Plan: History of CAD S/P CABG. Will get serial enzymes and EKG. Continue rest of his meds. Status: Chronic Priority: High (3) Type 2 diabetes mellitus Assessment and Plan: Will put on Accucheck and hypoglycemic agents. Will put patient back on Tresiba. Status: Chronic Priority: High (4) Hypertension Assessment and Plan: not well-controlled at this time. Will adjust meds for now Status: Chronic Priority: High (5) Hyperlipidemia associated with type 2 diabetes mellitus Status: Chronic Priority: Medium Past Patient History - Past Medical History & Family History Past Medical History?: Yes - Past Social History Smoking Status: Never Smoked - CARDIAC Hx Hypertension: Yes Other/Comment: CABG in 2003 - NEUROLOGICAL Other/Comment: Family reports "stroke" 1997 - ENDOCRINE/METABOLIC Hx Endocrine Disorders: Yes Hx Diabetes Mellitus Type 2: Yes - MUSCULOSKELETAL/RHEUMATOLOGICAL Hx Falls: No - PSYCHIATRIC Hx Substance Use: No - SURGICAL HISTORY Hx Coronary Artery Bypass Graft: Yes - ANESTHESIA Hx Anesthesia: Yes Hx Anesthesia Reactions: No Hx Malignant Hyperthermia: No Meds Allergies/Adverse Reactions: Allergies Allergy/AdvReac Type Severity Reaction Status Date / Time No Known Allergies Allergy Unverified 12/24/18 18:27 - Medications Medications: Current Medications Albuterol Sulfate (Albuterol 0.083% Inhal Ree (2.5 Mg/3 Ml) Ud) 2.5 mg IH RQ4 REPLACED BY [facility] Last Admin: 01/08/19 20:04 Dose: 2.5 mg Aspirin (Ecotrin) 81 mg PO DAILY JAMES Enoxaparin Sodium (Lovenox) 40 mg SC DAILY JAMES Famotidine (Pepcid) 20 mg IVP DAILY REPLACED BY [facility] Last Admin: 01/08/19 12:29 Dose: 20 mg Propofol (Diprivan) 1,000 mg in 100 mls @ 2.722 mls/hr IV .Q24H PRN; Protocol PRN Reason: TITRATE PER MD ORDER Last Titration: 01/08/19 18:39 Dose: 10 mcg/kg/min, 5.443 mls/hr Sodium Chloride (Sodium Chloride 0.9%) 1,000 mls @ 75 mls/hr IV .[id number] REPLACED BY [facility] Last Admin: 01/08/19 12:29 Dose: 75 mls/hr Piperacillin Sod/Tazobactam (Sod 3.375 gm/ Sodium Chloride) 100 mls @ 200 mls/hr IVPB Q8H JAMES; Protocol Last Admin: 01/08/19 18:37 Dose: 200 mls/hr Dexmedetomidine HCl 200 mcg/ (Sodium Chloride) 50 mls @ 4.54 mls/hr IV TITR PRN; Protocol PRN Reason: Agitation Insulin Aspart (Novolog) 0 unit SC Q6H REPLACED BY [facility]; Protocol Last Admin: 01/08/19 18:36 Dose: 3 units Methylprednisolone (Solu-Medrol) 40 mg IVP Q8 REPLACED BY [facility] Last Admin: 01/08/19 14:40 Dose: 40 mg Metoprolol Tartrate (Lopressor) 50 mg PO BID REPLACED BY [facility] Last Admin: 01/08/19 17:19 Dose: Not Given Rosuvastatin Calcium (Crestor) 10 mg PO HS REPLACED BY [facility] Results - Vital Signs Recent Vital Signs: Last Vital Signs Temp 98.3 F 01/08/19 05:52 Pulse 108 H 01/08/19 20:00 Resp 16 01/08/19 14:55 BP 98/55 L 01/08/19 20:00 Pulse Ox 100 01/08/19 20:00 - Labs Result Diagrams: 01/08/19 06:16 01/08/19 06:14 Labs: Laboratory Results - last 24 hr 01/08/19 01/08/19 01/08/19 06:01 06:14 06:16 WBC 16.2 H D RBC 4.89 Hgb 14.8 Hct 45.5 MCV 93.1 MCH 30.2 MCHC 32.4 L RDW 14.1 Plt Count 252 MPV 7.9 Neut % (Auto) 81.8 H Lymph % (Auto) 10.5 L [place] % (Auto) 5.7 Eos % (Auto) 1.7 Baso % (Auto) 0.3 Neut # (Auto) 13.2 H Lymph # (Auto) 1.7 [place] # (Auto) 0.9 H Eos # (Auto) 0.3 Baso # (Auto) 0.0 PT INR APTT Puncture Site Rr pCO2 53 H pO2 223 H HCO3 23.5 ABG pH 7.29 L ABG Total CO2 27.1 ABG O2 Saturation 98.4 H ABG Base Excess -1.9 ABG Hemoglobin ABG Carboxyhemoglobin POC ABG HHb (Measured) ABG Methemoglobin Álvaro Test Pos ABG Potassium 3.8 A-a O2 Difference 67.0 Respiratory Index 0.3 Hgb O2 Saturation Sodium 135.0 136 Chloride 102.0 101 Glucose 247 H Lactate 1.7 Vent Mode Bipap Mechanical Rate 12 FiO2 50.0 Tidal Volume PEEP Inspiratory BiPAP 12 Expiratory BiPAP 6 Crit Value Called To Crit Value Called By Crit Value Read Back Blood Gas Notified Time Potassium 4.8 Carbon Dioxide 22 Anion Gap 18 BUN 22 H Creatinine 1.4 Est GFR ( Amer) 59 Est GFR (Non-Af Amer) 49 POC Glucose (mg/dL) Random Glucose 229 H Lactic Acid Calcium 9.6 Magnesium 2.0 Total Bilirubin 0.9 AST 42 ALT < 6 L D Alkaline Phosphatase 58 Troponin I < 0.0120 NT-Pro-B Natriuret Pep 130 Total Protein 7.8 Albumin 4.5 Globulin 3.3 Albumin/Globulin Ratio 1.3 Arterial Blood Potassium 3.8 Urine Color Urine Clarity Urine pH Ur Specific [place] Urine Protein Urine Glucose (UA) Urine Ketones Urine Blood Urine Nitrate Urine Bilirubin Urine Urobilinogen Ur Leukocyte Esterase Urine WBC (Auto) Urine RBC (Auto) Influenza Typ A,B (EIA) 01/08/19 01/08/19 01/08/19 06:16 09:33 09:35 WBC RBC Hgb Hct MCV MCH MCHC RDW Plt Count MPV Neut % (Auto) Lymph % (Auto) [place] % (Auto) Eos % (Auto) Baso % (Auto) Neut # (Auto) Lymph # (Auto) [place] # (Auto) Eos # (Auto) Baso # (Auto) PT 11.2 INR 1.0 APTT 30 Puncture Site Rr pCO2 60 H pO2 260 H HCO3 21.8 ABG pH 7.22 L ABG Total CO2 26.4 ABG O2 Saturation 98.8 H ABG Base Excess -4.1 L ABG Hemoglobin ABG Carboxyhemoglobin POC ABG HHb (Measured) ABG Methemoglobin Álvaro Test Postive ABG Potassium 4.2 A-a O2 Difference -85.0 Respiratory Index -0.3 Hgb O2 Saturation Sodium 136.0 Chloride 100.0 Glucose 330 H Lactate 3.3 H Vent Mode Bipap Mechanical Rate FiO2 35.0 Tidal Volume PEEP Inspiratory BiPAP 18 Expiratory BiPAP 8 Crit Value Called To [place] Crit Value Called By Jenni Crit Value Read Back Y Blood Gas Notified Time 939 Potassium Carbon Dioxide Anion Gap BUN Creatinine Est GFR ( Amer) Est GFR (Non-Af Amer) POC Glucose (mg/dL) Random Glucose Lactic Acid Calcium Magnesium Total Bilirubin AST ALT Alkaline Phosphatase Troponin I NT-Pro-B Natriuret Pep Total Protein Albumin Globulin Albumin/Globulin Ratio Arterial Blood Potassium 4.2 Urine Color Yellow Urine Clarity Clear Urine pH 5.0 Ur Specific [place] 1.009 Urine Protein 1+ H Urine Glucose (UA) 1+ H Urine Ketones Negative Urine Blood 1+ H Urine Nitrate Negative Urine Bilirubin Negative Urine Urobilinogen Normal Ur Leukocyte Esterase Neg Urine WBC (Auto) 1 Urine RBC (Auto) 7 H Influenza Typ A,B (EIA) 01/08/19 01/08/19 01/08/19 13:40 17:36 19:42 WBC RBC Hgb Hct MCV MCH MCHC RDW Plt Count MPV Neut % (Auto) Lymph % (Auto) [place] % (Auto) Eos % (Auto) Baso % (Auto) Neut # (Auto) Lymph # (Auto) [place] # (Auto) Eos # (Auto) Baso # (Auto) PT INR APTT Puncture Site Rba pCO2 43 pO2 168 H HCO3 21.0 ABG pH 7.30 L ABG Total CO2 22.5 ABG O2 Saturation 98.6 H ABG Base Excess -5.1 L ABG Hemoglobin 12.9 ABG Carboxyhemoglobin 0.6 POC ABG HHb (Measured) 1.4 ABG Methemoglobin 0.6 Álvaro Test Na ABG Potassium A-a O2 Difference 135.0 Respiratory Index 0.8 Hgb O2 Saturation 97.3 Sodium Chloride Glucose Lactate Vent Mode Prvc Mechanical Rate 16 FiO2 50.0 Tidal Volume 400 PEEP 5 Inspiratory BiPAP Expiratory BiPAP Crit Value Called To Crit Value Called By Crit Value Read Back Blood Gas Notified Time Potassium Carbon Dioxide Anion Gap BUN Creatinine Est GFR ( Amer) Est GFR (Non-Af Amer) POC Glucose (mg/dL) 287 H Random Glucose Lactic Acid Calcium Magnesium Total Bilirubin AST ALT Alkaline Phosphatase Troponin I NT-Pro-B Natriuret Pep Total Protein Albumin Globulin Albumin/Globulin Ratio Arterial Blood Potassium Urine Color Urine Clarity Urine pH Ur Specific [place] Urine Protein Urine Glucose (UA) Urine Ketones Urine Blood Urine Nitrate Urine Bilirubin Urine Urobilinogen Ur Leukocyte Esterase Urine WBC (Auto) Urine RBC (Auto) Influenza Typ A,B (EIA) Negative for flu a/b 01/08/19 19:42 WBC RBC Hgb Hct MCV MCH MCHC RDW Plt Count MPV Neut % (Auto) Lymph % (Auto) [place] % (Auto) Eos % (Auto) Baso % (Auto) Neut # (Auto) Lymph # (Auto) [place] # (Auto) Eos # (Auto) Baso # (Auto) PT INR APTT Puncture Site pCO2 pO2 HCO3 ABG pH ABG Total CO2 ABG O2 Saturation ABG Base Excess ABG Hemoglobin ABG Carboxyhemoglobin POC ABG HHb (Measured) ABG Methemoglobin Álvaro Test ABG Potassium A-a O2 Difference Respiratory Index Hgb O2 Saturation Sodium Chloride Glucose Lactate Vent Mode Mechanical Rate FiO2 Tidal Volume PEEP Inspiratory BiPAP Expiratory BiPAP Crit Value Called To Crit Value Called By Crit Value Read Back Blood Gas Notified Time Potassium Carbon Dioxide Anion Gap BUN Creatinine Est GFR ( Amer) Est GFR (Non-Af Amer) POC Glucose (mg/dL) Random Glucose Lactic Acid 3.2 H Calcium Magnesium Total Bilirubin AST ALT Alkaline Phosphatase Troponin I NT-Pro-B Natriuret Pep Total Protein Albumin Globulin Albumin/Globulin Ratio Arterial Blood Potassium Urine Color Urine Clarity Urine pH Ur Specific [place] Urine Protein Urine Glucose (UA) Urine Ketones Urine Blood Urine Nitrate Urine Bilirubin Urine Urobilinogen Ur Leukocyte Esterase Urine WBC (Auto) Urine RBC (Auto) Influenza Typ A,B (EIA)
[2019-01-08 21:14] LABS: BASO # 0.1 K/uL (0.0-0.2); BASO % 0.6 % (0.0-2.0); HEMOGLOBIN 12.1 g/dL (12.0-18.0); LYMPH # 0.5 K/uL (1.0-4.3); MEAN CORPUSCULAR HEMOGLOBIN 29.8 pg (27.0-31.0); MEAN CORPUSCULAR HGB CONC 32.4 g/dL (33.0-37.0); MEAN PLATELET VOLUME 7.2 fL (7.2-11.7); MONO # 0.2 K/uL (0.0-0.8); MONO % 1.5 % (0.0-10.0); NEUT # 15.4 K/uL (1.8-7.0); NEUT % 94.9 % (50.0-75.0); PLATELET COUNT 210 K/uL (130-400); RBC 4.06 Mil/uL (4.40-5.90); WHITE BLOOD COUNT 16.3 K/uL (4.8-10.8)
[2019-01-08 21:50] LABS: ALB/GLOB RATIO 1.3 (1.0-2.1); ALBUMIN 3.5 g/dL (3.5-5.0); CALCIUM 8.8 mg/dl (8.6-10.4)
[2019-01-08 22:00] LABS: LYMPHOCYTE 2 % (20-40); MONOCYTE 1 % (0-10); NEUTROPHIL 97 % (50-75); PLATELET ESTIMATE NORMAL (NORMAL); TOTAL CELLS COUNTED 100
[2019-01-08 22:57] LABS: CK-MB 8.13 ng/mL (0.0-3.38); TROPONIN I 1.71 ng/mL (0.00-0.120)
[2019-01-08] MEDS: Heparin25000 units/250ml 1/2NS 25,000 UNITS/250 ML BAG IV PRN (23:27)
[2019-01-09] MEDS: Albuterol 0.083% Inhal Sol (2.5 mg/3 mL) UD IH SCH ×7 (00:02→19:42)
[2019-01-09] MEDS: Sodium Chloride 0.9% 1,000 ML IV SCH ×2 (00:30→05:22)
[2019-01-09] MEDS: Piperacillin/Tazobact 3.375 GM in Sodium Chloride 100 ML IVPB SCH ×3 (02:29→18:24)
[2019-01-09] MEDS: Propofol 10 mg/ml 1,000 MG/100 ML VIAL IV PRN ×2 (04:00→12:20)
[2019-01-09] MEDS: (Novolog) Insulin Aspart, Recombinant 100 u/ml 10 ml vial SC SCH ×3 (05:21→18:23)
[2019-01-09] MEDS: MethylPREDNISolone 40 mg Vial IVP SCH ×2 (05:21→14:43)
[2019-01-09 05:26] LABS: BASO # 0.1 K/uL (0.0-0.2); BASO % 0.6 % (0.0-2.0); HEMOGLOBIN 11.9 g/dL (12.0-18.0); LYMPH # 0.6 K/uL (1.0-4.3); LYMPH % 3.3 % (20.0-40.0); MEAN CELL VOLUME 91.6 fL (80.0-94.0); MEAN CORPUSCULAR HEMOGLOBIN 29.8 pg (27.0-31.0); MEAN CORPUSCULAR HGB CONC 32.5 g/dL (33.0-37.0); MEAN PLATELET VOLUME 7.5 fL (7.2-11.7); MONO # 0.6 K/uL (0.0-0.8); MONO % 3.4 % (0.0-10.0); NEUT # 17.6 K/uL (1.8-7.0); NEUT % 92.7 % (50.0-75.0); PLATELET COUNT 212 K/uL (130-400); RBC 4.01 Mil/uL (4.40-5.90)
[2019-01-09 05:33] LABS: INR 1.2; PROTHROMBIN TIME 12.6 SECONDS (9.7-12.2)
[2019-01-09 06:01] LABS: ALB/GLOB RATIO 1.4 (1.0-2.1); ALBUMIN 3.4 g/dL (3.5-5.0); CALCIUM 8.6 mg/dl (8.6-10.4); CK-MB 6.8 ng/mL (0.0-3.38); TROPONIN I 3.11 ng/mL (0.00-0.120)
[2019-01-09 06:15] LABS: ARTERIAL BLOOD GAS HCO3 24.3 mmol/L (21-28); ARTERIAL BLOOD GAS O2 SAT 98.6 % (95-98); ARTERIAL BLOOD GAS PCO2 30 mm/Hg (35-45); ARTERIAL BLOOD GAS PH 7.47 (7.35-7.45); ARTERIAL BLOOD GAS PO2 177 mm/Hg (80-100); ARTERIAL BLOOD GAS TCO2 22.7 mmol/L (22-28)
--- NOTE | 2019-01-09 08:31 | RAD ---
Chest x-ray single frontal view HISTORY: Evaluate for pneumothorax. COMPARISON: 01/08/2019 FINDINGS: NG tube extending into the stomach. Endotracheal tube in stable position. Mild venous congestion. Mild patchy increased markings at the left lung base. Biapical pleural thickening with upper lobe granulomatous changes. Status post median sternotomy. Atherosclerotic calcification at the aortic knob. Mild cardiomegaly. Degenerative changes in the spine and shoulders. Impression: NG tube extending into the stomach. Endotracheal tube in stable position. Mild venous congestion. Mild patchy increased markings at the left lung base. Biapical pleural thickening with upper lobe granulomatous changes. Status post median sternotomy. Atherosclerotic calcification at the aortic knob. Mild cardiomegaly.
--- NOTE | 2019-01-09 08:44 | RAD ---
Chest x-ray single frontal view HISTORY: Endotracheal tube placement. COMPARISON: 01/08/2019 FINDINGS: Lines and tubes in stable position. Mild venous congestion. Patchy increased markings at the left lung base. Small left pleural effusion. Status post median sternotomy CABG. Cardiomegaly. Degenerative changes in the spine. Impression: Lines and tubes in stable position. Mild venous congestion. Patchy increased markings at the left lung base. Small left pleural effusion. Status post median sternotomy CABG. Cardiomegaly.
[2019-01-09 09:08] LABS: BANDS 9 % (0-2); LYMPHOCYTE 3 % (20-40); MONOCYTE 3 % (0-10); NEUTROPHIL 85 % (50-75); PLATELET ESTIMATE NORMAL (NORMAL); TOTAL CELLS COUNTED 100
[2019-01-09] MEDS ORDERED: Enoxaparin 40 mg Syringe SC SCH (10:00)
[2019-01-09] MEDS ORDERED: SIMVASTATIN 20 MG PO SCH (10:00)
[2019-01-09 12:32] LABS: CK-MB 5.63 ng/mL (0.0-3.38); TROPONIN I 2.4 ng/mL (0.00-0.120)
[2019-01-09 13:35] LABS: ABG ALLEN TEST POS; ARTERIAL BLOOD GAS HCO3 25.6 mmol/L (21-28); ARTERIAL BLOOD GAS HEMOGLOBIN 11.4 g/dL (11.7-17.4); ARTERIAL BLOOD GAS O2 SAT 98.4 % (95-98); ARTERIAL BLOOD GAS PCO2 39 mm/Hg (35-45); ARTERIAL BLOOD GAS PH 7.42 (7.35-7.45); ARTERIAL BLOOD GAS PO2 133 mm/Hg (80-100); ARTERIAL BLOOD GAS TCO2 26.5 mmol/L (22-28)
--- NOTE | 2019-01-09 15:33 | CP.PCM.PN ---
Subjective - Date & Time of Evaluation Date of Evaluation: 01/09/19 Time of Evaluation: 15:25 - Subjective Subjective: No adverse events, slow rise and decline in troponin noticed. FIO2 requirements on vent < 40%, weaning trial on cpap done then extubated on 40%, doing well. no stridor or sob. Discussed with daughter no h/o asthma or smoking but recently last 2 wks sob and wheezing, also recent IV contrast use noticed suspect to be etiology for worsening renal function, low dose bicarb drip started earlier this am. Objective - Vital Signs/Intake and Output Vital Signs (last 24 hours): Temp Pulse Resp BP Pulse Ox 98.5 F 78 14 122/68 99 01/09/19 12:00 01/09/19 14:00 01/09/19 14:00 01/09/19 13:59 01/09/19 14:00 Intake and Output: 01/09/19 01/09/19 06:59 18:59 Intake Total 1281.6 1026.5 Output Total 600 195 Balance 681.6 831.5 - Medications Medications: Current Medications Albuterol Sulfate (Albuterol 0.083% Inhal Ree (2.5 Mg/3 Ml) Ud) 2.5 mg IH RQ4 [facility] Last Admin: 01/09/19 14:49 Dose: 2.5 mg Aspirin (Ecotrin) 81 mg PO DAILY JAMES Last Admin: 01/09/19 09:58 Dose: 81 mg Famotidine (Pepcid) 20 mg IVP DAILY [facility] Last Admin: 01/09/19 09:59 Dose: 20 mg Propofol (Diprivan) 1,000 mg in 100 mls @ 2.722 mls/hr IV .Q24H PRN; Protocol PRN Reason: TITRATE PER MD ORDER Last Titration: 01/09/19 14:31 Dose: 0 mcg/kg/min, 0 mls/hr Piperacillin Sod/Tazobactam (Sod 3.375 gm/ Sodium Chloride) 100 mls @ 200 mls/hr IVPB Q8H JAMES; Protocol Last Admin: 01/09/19 10:00 Dose: 200 mls/hr Dexmedetomidine HCl 200 mcg/ (Sodium Chloride) 50 mls @ 4.54 mls/hr IV TITR PRN; Protocol PRN Reason: Agitation Heparin Sodium/Sodium Chloride (Heparin 68992 Units/250ml 1/2 Normal Saline) 25,000 units in 250 mls @ 8.28 mls/hr IV .Q24H PRN; Protocol PRN Reason: ADJUST RATE PER PROTOCOL Last Admin: 01/08/19 23:27 Dose: 9 units/kg/hr, 8.28 mls/hr Sodium Bicarbonate 75 meq/ (Sodium Chloride) 1,075 mls @ 100 mls/hr IV .[id number] JAMES Last Admin: 01/09/19 07:28 Dose: 100 mls/hr Insulin Aspart (Novolog) 0 unit SC Q6H JAMES; Protocol Last Admin: 01/09/19 12:19 Dose: 2 units Methylprednisolone (Solu-Medrol) 40 mg IVP Q12 JAMES Metoprolol Tartrate (Lopressor) 50 mg PO BID JAMES Last Admin: 01/09/19 09:58 Dose: 50 mg Rosuvastatin Calcium (Crestor) 10 mg PO HS JAMES Last Admin: 01/08/19 21:35 Dose: 10 mg Sitagliptin Phosphate (Januvia) 50 mg PO DAILY JAMES - Labs Labs: 01/09/19 05:17 01/09/19 05:17 PT 12.6 SECONDS (9.7-12.2) H 01/09/19 05:17 INR 1.2 01/09/19 05:17 APTT 61 SECONDS (21-34) H D 01/09/19 11:52 - Additional Findings Additional findings: * HEENT ESTEFANIA * Neck supple * Chest Clear, no wheezing, or rales * CVS regular, no gallop or rub * PA soft, ext no edema * COMMUNICATIONS LEAD awake oriented x3 no fnd * Skin normal turgor. Assessment and Plan - Assessment and Plan (Free Text) Assessment: * Reactive airway disease and resp failure, extubated today, reducing steroid dose * NSTEMI likely from the stress related to resp failure, asa, heparin therapeutic * Acute kidney injury suspected form recent iv contrast use, ifv as isotonic bicarb 100ml/hr * DM uncontrolled, restarted on Januvia, also on sliding scale * CAD/CABG * Obese * Gi dvt prophylaxis * See orders for detail.
--- NOTE | 2019-01-09 21:43 | CP.PCM.PN ---
Subjective - Date & Time of Evaluation Date of Evaluation: 01/09/19 Time of Evaluation: 21:43 - Subjective Subjective: Patient was seen by intensive care unit team. Extubated. He is awake and responding. But nighttime patient become more respiratory distress. Continue to current monitoring. Close monitoring. ICU care. Objective - Vital Signs/Intake and Output Vital Signs (last 24 hours): Temp Pulse Resp BP Pulse Ox 97.6 F 94 H 21 138/76 96 01/09/19 16:00 01/09/19 20:00 01/09/19 20:00 01/09/19 20:00 01/09/19 20:00 Intake and Output: 01/09/19 01/10/19 18:59 06:59 Intake Total 1459.7 216.6 Output Total 755 Balance 704.7 216.6 - Medications Medications: Current Medications Albuterol Sulfate (Albuterol 0.083% Inhal Ree (2.5 Mg/3 Ml) Ud) 2.5 mg IH RQ4 [facility] Last Admin: 01/09/19 19:42 Dose: 2.5 mg Aspirin (Ecotrin) 81 mg PO DAILY [facility] Last Admin: 01/09/19 09:58 Dose: 81 mg Famotidine (Pepcid) 20 mg IVP DAILY [facility] Last Admin: 01/09/19 09:59 Dose: 20 mg Propofol (Diprivan) 1,000 mg in 100 mls @ 2.722 mls/hr IV .Q24H PRN; Protocol PRN Reason: TITRATE PER MD ORDER Last Titration: 01/09/19 14:31 Dose: 0 mcg/kg/min, 0 mls/hr Piperacillin Sod/Tazobactam (Sod 3.375 gm/ Sodium Chloride) 100 mls @ 200 mls/hr IVPB Q8H [facility]; Protocol Last Admin: 01/09/19 18:24 Dose: 200 mls/hr Dexmedetomidine HCl 200 mcg/ (Sodium Chloride) 50 mls @ 4.54 mls/hr IV TITR PRN; Protocol PRN Reason: Agitation Heparin Sodium/Sodium Chloride (Heparin 22044 Units/250ml 1/2 Normal Saline) 25,000 units in 250 mls @ 8.28 mls/hr IV .Q24H PRN; Protocol PRN Reason: ADJUST RATE PER PROTOCOL Last Admin: 01/08/19 23:27 Dose: 9 units/kg/hr, 8.28 mls/hr Sodium Bicarbonate 75 meq/ (Sodium Chloride) 1,075 mls @ 100 mls/hr IV .[id number] [facility] Last Admin: 01/09/19 18:24 Dose: 100 mls/hr Insulin Aspart (Novolog) 0 unit SC Q6H [facility]; Protocol Last Admin: 01/09/19 18:23 Dose: 3 units Methylprednisolone (Solu-Medrol) 40 mg IVP Q12 [facility] Last Admin: 01/09/19 21:32 Dose: 40 mg Metoprolol Tartrate (Lopressor) 50 mg PO BID [facility] Last Admin: 01/09/19 18:23 Dose: 50 mg Rosuvastatin Calcium (Crestor) 10 mg PO HS [facility] Last Admin: 01/09/19 21:32 Dose: 10 mg Sitagliptin Phosphate (Januvia) 50 mg PO DAILY [facility] Last Admin: 01/09/19 16:28 Dose: Not Given - Labs Labs: 01/09/19 05:17 01/09/19 05:17 PT 12.6 SECONDS (9.7-12.2) H 01/09/19 05:17 INR 1.2 01/09/19 05:17 APTT 61 SECONDS (21-34) H D 01/09/19 11:52
[2019-01-09] MEDS ORDERED: MethylPREDNISolone 40 mg Vial IVP SCH (22:00)
--- NOTE | 2019-01-09 22:10 | CP.PCM.PN ---
Subjective - Date & Time of Evaluation Date of Evaluation: 01/09/19 Time of Evaluation: 10:05 - Subjective Subjective: Patient seen and evaluated Trops trending down Patient not in distress Objective - Vital Signs/Intake and Output Vital Signs (last 24 hours): Temp Pulse Resp BP Pulse Ox 97.6 F 101 H 16 134/74 97 01/09/19 16:00 01/09/19 21:00 01/09/19 21:00 01/09/19 21:00 01/09/19 21:00 Intake and Output: 01/09/19 01/10/19 18:59 06:59 Intake Total 1459.7 216.6 Output Total 755 Balance 704.7 216.6 - Medications Medications: Current Medications Albuterol Sulfate (Albuterol 0.083% Inhal Ree (2.5 Mg/3 Ml) Ud) 2.5 mg IH RQ4 [facility] Last Admin: 01/09/19 19:42 Dose: 2.5 mg Aspirin (Ecotrin) 81 mg PO DAILY [facility] Last Admin: 01/09/19 09:58 Dose: 81 mg Famotidine (Pepcid) 20 mg IVP DAILY [facility] Last Admin: 01/09/19 09:59 Dose: 20 mg Propofol (Diprivan) 1,000 mg in 100 mls @ 2.722 mls/hr IV .Q24H PRN; Protocol PRN Reason: TITRATE PER MD ORDER Last Titration: 01/09/19 14:31 Dose: 0 mcg/kg/min, 0 mls/hr Piperacillin Sod/Tazobactam (Sod 3.375 gm/ Sodium Chloride) 100 mls @ 200 mls/hr IVPB Q8H [facility]; Protocol Last Admin: 01/09/19 18:24 Dose: 200 mls/hr Dexmedetomidine HCl 200 mcg/ (Sodium Chloride) 50 mls @ 4.54 mls/hr IV TITR PRN; Protocol PRN Reason: Agitation Heparin Sodium/Sodium Chloride (Heparin 94476 Units/250ml 1/2 Normal Saline) 25,000 units in 250 mls @ 8.28 mls/hr IV .Q24H PRN; Protocol PRN Reason: ADJUST RATE PER PROTOCOL Last Admin: 01/08/19 23:27 Dose: 9 units/kg/hr, 8.28 mls/hr Sodium Bicarbonate 75 meq/ (Sodium Chloride) 1,075 mls @ 100 mls/hr IV .[id number] [facility] Last Admin: 01/09/19 18:24 Dose: 100 mls/hr Insulin Aspart (Novolog) 0 unit SC Q6H [facility]; Protocol Last Admin: 01/09/19 18:23 Dose: 3 units Methylprednisolone (Solu-Medrol) 40 mg IVP Q12 [facility] Last Admin: 01/09/19 21:32 Dose: 40 mg Metoprolol Tartrate (Lopressor) 50 mg PO BID [facility] Last Admin: 01/09/19 18:23 Dose: 50 mg Rosuvastatin Calcium (Crestor) 10 mg PO HS [facility] Last Admin: 01/09/19 21:32 Dose: 10 mg Sitagliptin Phosphate (Januvia) 50 mg PO DAILY [facility] Last Admin: 01/09/19 16:28 Dose: Not Given - Labs Labs: 01/09/19 05:17 01/09/19 05:17 PT 12.6 SECONDS (9.7-12.2) H 01/09/19 05:17 INR 1.2 01/09/19 05:17 APTT 61 SECONDS (21-34) H D 01/09/19 11:52
[2019-01-10] MEDS: (Novolog) Insulin Aspart, Recombinant 100 u/ml 10 ml vial SC SCH ×6 (00:01→22:10)
[2019-01-10] MEDS: Albuterol 0.083% Inhal Sol (2.5 mg/3 mL) UD IH SCH ×6 (00:35→19:14)
[2019-01-10] MEDS ORDERED: Dexmedetomidine Hydrochloride 100 mcg/ml (2ML) IV PRN (02:02)
[2019-01-10 03:07] LABS: BASO % 0.1 % (0.0-2.0); HEMOGLOBIN 12.8 g/dL (12.0-18.0); LYMPH # 0.3 K/uL (1.0-4.3); LYMPH % 1.5 % (20.0-40.0); MEAN CELL VOLUME 92.2 fL (80.0-94.0); MEAN CORPUSCULAR HGB CONC 32.6 g/dL (33.0-37.0); MEAN PLATELET VOLUME 7.7 fL (7.2-11.7); MONO # 1.2 K/uL (0.0-0.8); MONO % 4.9 % (0.0-10.0); NEUT # 22.1 K/uL (1.8-7.0); NEUT % 93.5 % (50.0-75.0); PLATELET COUNT 228 K/uL (130-400); RBC 4.27 Mil/uL (4.40-5.90); RED CELL DISTRIBUTION WIDTH 14.2 % (11.5-14.5); WHITE BLOOD COUNT 23.6 K/uL (4.8-10.8)
[2019-01-10 03:09] LABS: INR 1.1
[2019-01-10] MEDS: Piperacillin/Tazobact 3.375 GM in Sodium Chloride 100 ML IVPB SCH ×3 (03:22→18:01)
[2019-01-10 03:41] LABS: ALB/GLOB RATIO 1.4 (1.0-2.1); ALBUMIN 3.8 g/dL (3.5-5.0); CALCIUM 8.5 mg/dl (8.6-10.4); CK-MB 9.01 ng/mL (0.0-3.38); TROPONIN I 1.49 ng/mL (0.00-0.120)
[2019-01-10 03:51] LABS: LYMPHOCYTE 2 % (20-40); MONOCYTE 6 % (0-10); NEUTROPHIL 92 % (50-75); PLATELET ESTIMATE NORMAL (NORMAL); TOTAL CELLS COUNTED 100
[2019-01-10] MEDS: Dexmedetomidine Hydrochloride 200 MCG in Sodium Chloride 0.9% 48 ML IV PRN ×2 (06:22→08:51)
[2019-01-10] MEDS ORDERED: Albuterol 0.083% Inhal Sol (2.5 mg/3 mL) UD INH ONE (08:28)
[2019-01-10 09:09] LABS: ARTERIAL BLOOD GAS HCO3 29.5 mmol/L (21-28); ARTERIAL BLOOD GAS HEMOGLOBIN 11.9 g/dL (11.7-17.4); ARTERIAL BLOOD GAS O2 SAT 96.1 % (95-98); ARTERIAL BLOOD GAS PCO2 44 mm/Hg (35-45); ARTERIAL BLOOD GAS PH 7.45 (7.35-7.45); ARTERIAL BLOOD GAS PO2 73 mm/Hg (80-100)
--- NOTE | 2019-01-10 09:56 | RAD ---
Chest x-ray single frontal view HISTORY: Shortness of breath. COMPARISON: 01/09/2019 FINDINGS: Mild venous congestion. Patchy increased markings at the left lung base. Small granuloma at the right lung apex. Cardiomegaly. Enlarged ectatic aorta with atherosclerotic calcification at the aortic knob. Status post median sternotomy. Degenerative changes in the spine. Impression: Mild venous congestion. Patchy increased markings at the left lung base. Small granuloma at the right lung apex. Cardiomegaly. Enlarged ectatic aorta with atherosclerotic calcification at the aortic knob. Status post median sternotomy.
[2019-01-10] MEDS: MethylPREDNISolone 40 mg Vial IVP SCH (10:03)
--- NOTE | 2019-01-10 11:07 | CT ---
Date of service: 01/10/2019 PROCEDURE: CT HEAD WITHOUT CONTRAST. HISTORY: Altered mental status COMPARISON: None available. TECHNIQUE: Axial computed tomography images were obtained through the head/brain without intravenous contrast. Radiation dose: Total exam DLP = 1472.93 mGy-cm. This CT exam was performed using one or more of the following dose reduction techniques: Automated exposure control, adjustment of the mA and/or kV according to patient size, and/or use of iterative reconstruction technique. FINDINGS: HEMORRHAGE: No intracranial hemorrhage. BRAIN: There are mild chronic microangiopathic changes. There is no mass, mass effect or abnormal extra-axial fluid collection. There is no territorial infarction. The midline sagittal structures are normal.There are coarse atherosclerotic calcifications in the cavernous carotid and vertebral arteries. VENTRICLES: There is moderate age-related global parenchymal volume loss and proportionate enlargement of the ventricles and cortical sulci. CALVARIUM: There is no calvarial fracture or extracranial soft tissue swelling. PARANASAL SINUSES: There is a retention cyst/polyp in the right sphenoid chamber and mucoperiosteal thickening in the left posterior ethmoid air cells. The remaining included paranasal sinuses are predominantly clear MASTOID AIR CELLS: Predominantly clear. OTHER FINDINGS: None. IMPRESSION: No acute intracranial abnormality. Mild chronic microangiopathic changes and moderate age-related global parenchymal volume loss.
--- NOTE | 2019-01-10 12:01 | VASCLAB ---
Date of service: 01/08/2019 PROCEDURE: Lower Extremity Venous Duplex Exam. HISTORY: dvt PRIORS: None. TECHNIQUE: Bilateral common femoral, femoral, popliteal and posterior tibial, peroneal and great saphenous veins were evaluated. Flow was assessed with color Doppler, compressibility, assessment of phasic flow and augmentation response. Report prepared by GRACIE Hopper FINDINGS: RIGHT: 1. Common Femoral Vein: 1.1. Compressibility - Fully compressible: Thrombus - None : Flow - Phasic: Augmentation -Normal: Reflux - None. 2. Femoral Vein: 2.1. Compressibility - Fully compressible: Thrombus - None : Flow - Phasic: Augmentation -Normal: Reflux - None. 3. Popliteal Vein: 3.1. Compressibility - Fully compressible: Thrombus - None : Flow - Phasic: Augmentation -Normal: Reflux - None. 4. Posterior Tibial Vein: 4.1. Compressibility - Fully compressible: Thrombus - None: Flow - Phasic: Augmentation -Normal: Reflux - None. 5. Peroneal Vein: 5.1. Compressibility - Fully compressible: Thrombus - None: Flow - Phasic: Augmentation -Normal: Reflux - None. 6. Great Saphenous Vein: 6.1. Compressibility - Fully compressible: Thrombus - None: Flow - Phasic: Augmentation - Normal: Reflux - None. LEFT: 1. Common Femoral Vein: 1.1. Compressibility - Fully compressible: Thrombus - None: Flow - Phasic: Augmentation -Normal: Reflux - None. 2. Femoral Vein: 2.1. Compressibility - Fully compressible: Thrombus - None: Flow - Phasic: Augmentation -Normal: Reflux - None. 3. Popliteal Vein: 3.1. Compressibility - Fully compressible: Thrombus - None : Flow - Phasic: Augmentation -Normal: Reflux - None. 4. Posterior Tibial Vein: 4.1. Compressibility - Fully compressible: Thrombus - None: Flow - Phasic: Augmentation -Normal: Reflux - None. 5. Peroneal Vein: 5.1. Compressibility - Fully compressible: Thrombus - None: Flow - Phasic: Augmentation -Normal: Reflux - None. 6. Great Saphenous Vein: 6.1. Compressibility - Fully compressible: Thrombus - None: Flow - Phasic: Augmentation - Normal: Reflux - None. OTHER FINDINGS: Right: None significant. Left: None significant. IMPRESSION: Right: No evidence of deep or superficial vein thrombosis of the right lower extremity. Normal valve function noted of the right side. Left: No evidence of deep or superficial vein thrombosis of the left lower extremity. Normal valve function noted of the left side.
--- NOTE | 2019-01-10 13:21 | CP.CCUPN ---
<Les Wilde - Last Filed: 01/10/19 12:53> CCU Subjective - Physician Review Subjective (Free Text): Overnight, pt was intermittently agitated and received Ativan and Benadryl. Pt seen and examined this morning at bedside with Dr. Uribe. Appears dyspnic, stomach breathing. More confused as per daughter who is at bedside. Daughter reports concern with pt's mental status as this is not his baseline. ABG Stat: pH 7.45, pCO2 44, pO2 73 Stat Nebulizer given and started on BIPAP. Respiratory status improved. Pt is awake, appears lethargic and is able to follow simple commands. Discussed plan with family. Critical Care Time Spent (in minutes): 35 CCU Objective - Vital Signs / Intake & Output Vital Signs (Last 4 hours): Vital Signs Temp Pulse Resp BP Pulse Ox 01/10/19 12:00 70 15 142/69 100 01/10/19 11:57 98.1 F 01/10/19 11:31 74 01/10/19 11:00 76 19 139/77 100 01/10/19 10:00 90 19 139/75 98 01/10/19 09:38 122/74 01/10/19 09:00 86 20 122/74 97 Intake and Output (Last 8hrs): Intake & Output 01/09/19 01/10/19 01/10/19 22:59 06:59 14:59 Intake Total 866.4 624.9 464.8 Output Total 280 800 Balance 586.4 -175.1 464.8 Intake: IV 200 53 Intake, IV Amount 866.4 424.9 411.8 RFA2 11.8 Right Forearm 800 400 400 Right Hand 66.4 24.9 Output: Urine 280 800 Urethral (Sands) 280 800 - Physical Exam Physical Exam Limitations: Positive for: Altered Mental Status Pupils: Positive for: PERRL Extroacular Muscles: Positive for: EOMI Conjunctiva: Positive for: Normal Respiratory/Chest: Positive for: Wheezes (bilateral and diffuse, inspiratory and expiratory) Cardiovascular: Positive for: Regular Rate and Rhythm Abdomen: Positive for: Distention, Normal Bowel Sounds. Negative for: Tenderness, Guarding Lower Extremity: Positive for: NORMAL PULSES, Capillary Refill < 2 s. Negative for: Edema Skin: Positive for: Normal Color Psychiatric: Positive for: Alert. Negative for: Oriented x 3 - Medications Active Medications: Active Medications Generic Name Dose Route Start Last Admin Trade Name Freq PRN Reason Stop Dose Admin Albuterol Sulfate 2.5 mg 01/08/19 20:00 01/10/19 11:31 Albuterol 0.083% Inhal Ree (2.5 Mg/3 Ml) Ud IH 2.5 mg RQ4 JAMES Administration Aspirin 81 mg 01/09/19 10:00 01/10/19 10:04 Ecotrin PO 81 mg DAILY JAMES Administration Famotidine 20 mg 01/08/19 11:00 01/10/19 10:04 Pepcid IVP 20 mg DAILY JAMES Administration Piperacillin Sod/Tazobactam 100 mls @ 200 mls/hr 01/08/19 11:00 01/10/19 10:43 Sod 3.375 gm/ Sodium Chloride IVPB 200 mls/hr Q8H JAMES Administration Protocol Dexmedetomidine HCl 200 mcg/ 50 mls @ 4.54 mls/hr 01/08/19 15:16 01/10/19 11:03 Sodium Chloride IV 0 mcg/kg/hr TITR PRN 0 mls/hr Agitation Titration Protocol 0.2 MCG/KG/HR Heparin Sodium/Sodium Chloride 25,000 units in 250 mls @ 8.28 mls/hr 01/08/19 22:59 01/10/19 00:56 Heparin 59517 Units/250ml 1/2 Normal Saline IV 0 units/kg/hr .Q24H PRN 0 mls/hr ADJUST RATE PER PROTOCOL Titration Protocol 9 UNITS/KG/HR Insulin Aspart 0 unit 01/10/19 07:30 01/10/19 12:48 Novolog SC 2 u ACHS JAMES Administration Protocol Methylprednisolone 20 mg 01/10/19 10:00 01/10/19 10:03 Solu-Medrol IVP 20 mg DAILY JAMES Administration Metoprolol Tartrate 50 mg 01/08/19 18:00 01/10/19 10:04 Lopressor PO 50 mg BID JAMES Administration Rosuvastatin Calcium 10 mg 01/08/19 22:00 01/09/19 21:32 Crestor PO 10 mg HS JAMES Administration Sitagliptin Phosphate 50 mg 01/09/19 15:30 01/09/19 16:28 Januvia PO Not Given DAILY JAMES - Patient Studies Lab Studies: Microbiology Studies 01/08/19 07:35 Blood Culture - Preliminary Blood NO GROWTH AFTER 48 HOURS 01/08/19 07:20 Blood Culture - Preliminary Blood NO GROWTH AFTER 48 HOURS 01/08/19 15:18 MRSA Culture (Admit) - Final Naris MRSA NOT DETECTED 01/08/19 09:34 Urine Culture - Final Urine,Catheterized No Growth (<1,000 CFU/ML) Lab Studies 01/10/19 01/10/19 01/10/19 Range/Units 11:19 09:06 08:22 WBC (4.8-10.8) K/uL RBC (4.40-5.90) Mil/uL Hgb (12.0-18.0) g/dL Hct (35.0-51.0) % MCV (80.0-94.0) fL MCH (27.0-31.0) pg MCHC (33.0-37.0) g/dL RDW (11.5-14.5) % Plt Count (130-400) K/uL MPV (7.2-11.7) fL Neut % (Auto) (50.0-75.0) % Lymph % (Auto) (20.0-40.0) % [place] % (Auto) (0.0-10.0) % Eos % (Auto) (0.0-4.0) % Baso % (Auto) (0.0-2.0) % Neut # (Auto) (1.8-7.0) K/uL Lymph # (Auto) (1.0-4.3) K/uL [place] # (Auto) (0.0-0.8) K/uL Eos # (Auto) (0.0-0.7) K/uL Baso # (Auto) (0.0-0.2) K/uL Neutrophils % (Manual) (50-75) % Lymphocytes % (Manual) (20-40) % Monocytes % (Manual) (0-10) % Platelet Estimate (NORMAL) RBC Morphology PT (9.7-12.2) SECONDS INR APTT (21-34) SECONDS Puncture Site Rba pCO2 44 (35-45) mm/Hg pO2 73 L (80-100) mm/Hg HCO3 29.5 H (21-28) mmol/L ABG pH 7.45 (7.35-7.45) ABG Total CO2 32.0 H (22-28) mmol/L ABG O2 Saturation 96.1 (95-98) % ABG Base Excess 5.9 H (-2.0-3.0) mmol/L ABG Hemoglobin 11.9 (11.7-17.4) g/dL ABG Carboxyhemoglobin 0.9 (0.5-1.5) % POC ABG HHb (Measured) 3.8 (0.0-5.0) % ABG Methemoglobin 0.5 (0.0-3.0) % Álvaro Test Na A-a O2 Difference 22.0 mm/Hg Respiratory Index 0.3 Hgb O2 Saturation 94.8 L (95.0-98.0) % Vent Mode FiO2 21.0 % PEEP Pressure Support Sodium (132-148) mmol/L Potassium (3.6-5.2) mmol/L Chloride (98-107) mmol/L Carbon Dioxide (22-30) mmol/L Anion Gap (10-20) BUN (9-20) mg/dL Creatinine (0.8-1.5) mg/dL Est GFR ( Amer) Est GFR (Non-Af Amer) POC Glucose (mg/dL) 211 H (65-110) mg/dL Random Glucose (75-110) mg/dL Calcium (8.6-10.4) mg/dl Phosphorus (2.5-4.5) mg/dL Magnesium (1.6-2.3) mg/dL Total Bilirubin (0.2-1.3) mg/dL AST (17-59) U/L ALT (21-72) U/L Alkaline Phosphatase (38-126) U/L Total Creatine Kinase (55-170) U/L CK-MB (Mass) (0.0-3.38) ng/mL Troponin I (0.00-0.120) ng/mL Total Protein (6.3-8.3) g/dL Albumin (3.5-5.0) g/dL Globulin (2.2-3.9) gm/dL Albumin/Globulin Ratio (1.0-2.1) Procalcitonin 0.13 L (0.19-0.49) NG/ML 01/10/19 01/10/19 01/10/19 Range/Units 07:19 03:02 03:02 WBC (4.8-10.8) K/uL RBC (4.40-5.90) Mil/uL Hgb (12.0-18.0) g/dL Hct (35.0-51.0) % MCV (80.0-94.0) fL MCH (27.0-31.0) pg MCHC (33.0-37.0) g/dL RDW (11.5-14.5) % Plt Count (130-400) K/uL MPV (7.2-11.7) fL Neut % (Auto) (50.0-75.0) % Lymph % (Auto) (20.0-40.0) % [place] % (Auto) (0.0-10.0) % Eos % (Auto) (0.0-4.0) % Baso % (Auto) (0.0-2.0) % Neut # (Auto) (1.8-7.0) K/uL Lymph # (Auto) (1.0-4.3) K/uL [place] # (Auto) (0.0-0.8) K/uL Eos # (Auto) (0.0-0.7) K/uL Baso # (Auto) (0.0-0.2) K/uL Neutrophils % (Manual) (50-75) % Lymphocytes % (Manual) (20-40) % Monocytes % (Manual) (0-10) % Platelet Estimate (NORMAL) RBC Morphology PT 12.0 (9.7-12.2) SECONDS INR 1.1 APTT 31 D (21-34) SECONDS Puncture Site pCO2 (35-45) mm/Hg pO2 (80-100) mm/Hg HCO3 (21-28) mmol/L ABG pH (7.35-7.45) ABG Total CO2 (22-28) mmol/L ABG O2 Saturation (95-98) % ABG Base Excess (-2.0-3.0) mmol/L ABG Hemoglobin (11.7-17.4) g/dL ABG Carboxyhemoglobin (0.5-1.5) % POC ABG HHb (Measured) (0.0-5.0) % ABG Methemoglobin (0.0-3.0) % Álvaro Test A-a O2 Difference mm/Hg Respiratory Index Hgb O2 Saturation (95.0-98.0) % Vent Mode FiO2 % PEEP Pressure Support Sodium 138 (132-148) mmol/L Potassium 3.9 (3.6-5.2) mmol/L Chloride 105 (98-107) mmol/L Carbon Dioxide 25 (22-30) mmol/L Anion Gap 12 (10-20) BUN 32 H (9-20) mg/dL Creatinine 1.9 H (0.8-1.5) mg/dL Est GFR ( Amer) 41 Est GFR (Non-Af Amer) 34 POC Glucose (mg/dL) 223 H (65-110) mg/dL Random Glucose 242 H (75-110) mg/dL Calcium 8.5 L (8.6-10.4) mg/dl Phosphorus 3.4 (2.5-4.5) mg/dL Magnesium 2.6 H (1.6-2.3) mg/dL Total Bilirubin 0.6 (0.2-1.3) mg/dL AST 85 H D (17-59) U/L ALT 21 (21-72) U/L Alkaline Phosphatase 56 (38-126) U/L Total Creatine Kinase 1358 H (55-170) U/L CK-MB (Mass) 9.01 H (0.0-3.38) ng/mL Troponin I 1.4900 H* (0.00-0.120) ng/mL Total Protein 6.5 (6.3-8.3) g/dL Albumin 3.8 (3.5-5.0) g/dL Globulin 2.7 (2.2-3.9) gm/dL Albumin/Globulin Ratio 1.4 (1.0-2.1) Procalcitonin (0.19-0.49) NG/ML 01/10/19 01/09/19 01/09/19 Range/Units 03:02 17:38 13:30 WBC 23.6 H (4.8-10.8) K/uL RBC 4.27 L (4.40-5.90) Mil/uL Hgb 12.8 (12.0-18.0) g/dL Hct 39.3 (35.0-51.0) % MCV 92.2 (80.0-94.0) fL MCH 30.0 (27.0-31.0) pg MCHC 32.6 L (33.0-37.0) g/dL RDW 14.2 (11.5-14.5) % Plt Count 228 (130-400) K/uL MPV 7.7 (7.2-11.7) fL Neut % (Auto) 93.5 H (50.0-75.0) % Lymph % (Auto) 1.5 L (20.0-40.0) % [place] % (Auto) 4.9 (0.0-10.0) % Eos % (Auto) 0.0 (0.0-4.0) % Baso % (Auto) 0.1 (0.0-2.0) % Neut # (Auto) 22.1 H (1.8-7.0) K/uL Lymph # (Auto) 0.3 L (1.0-4.3) K/uL [place] # (Auto) 1.2 H (0.0-0.8) K/uL Eos # (Auto) 0.0 (0.0-0.7) K/uL Baso # (Auto) 0.0 (0.0-0.2) K/uL Neutrophils % (Manual) 92 H (50-75) % Lymphocytes % (Manual) 2 L (20-40) % Monocytes % (Manual) 6 (0-10) % Platelet Estimate Normal (NORMAL) RBC Morphology Normal PT (9.7-12.2) SECONDS INR APTT (21-34) SECONDS Puncture Site Lr pCO2 39 (35-45) mm/Hg pO2 133 H (80-100) mm/Hg HCO3 25.6 (21-28) mmol/L ABG pH 7.42 (7.35-7.45) ABG Total CO2 26.5 (22-28) mmol/L ABG O2 Saturation 98.4 H (95-98) % ABG Base Excess 0.8 (-2.0-3.0) mmol/L ABG Hemoglobin 11.4 L (11.7-17.4) g/dL ABG Carboxyhemoglobin 0.5 (0.5-1.5) % POC ABG HHb (Measured) 1.6 (0.0-5.0) % ABG Methemoglobin 0.5 (0.0-3.0) % Álvaro Test Pos A-a O2 Difference 103.0 mm/Hg Respiratory Index 0.8 Hgb O2 Saturation 97.5 (95.0-98.0) % Vent Mode Cpap FiO2 40.0 % PEEP 5 Pressure Support 10 Sodium (132-148) mmol/L Potassium (3.6-5.2) mmol/L Chloride (98-107) mmol/L Carbon Dioxide (22-30) mmol/L Anion Gap (10-20) BUN (9-20) mg/dL Creatinine (0.8-1.5) mg/dL Est GFR ( Amer) Est GFR (Non-Af Amer) POC Glucose (mg/dL) 255 H (65-110) mg/dL Random Glucose (75-110) mg/dL Calcium (8.6-10.4) mg/dl Phosphorus (2.5-4.5) mg/dL Magnesium (1.6-2.3) mg/dL Total Bilirubin (0.2-1.3) mg/dL AST (17-59) U/L ALT (21-72) U/L Alkaline Phosphatase (38-126) U/L Total Creatine Kinase (55-170) U/L CK-MB (Mass) (0.0-3.38) ng/mL Troponin I (0.00-0.120) ng/mL Total Protein (6.3-8.3) g/dL Albumin (3.5-5.0) g/dL Globulin (2.2-3.9) gm/dL Albumin/Globulin Ratio (1.0-2.1) Procalcitonin (0.19-0.49) NG/ML 01/09/19 Range/Units 11:57 WBC (4.8-10.8) K/uL RBC (4.40-5.90) Mil/uL Hgb (12.0-18.0) g/dL Hct (35.0-51.0) % MCV (80.0-94.0) fL MCH (27.0-31.0) pg MCHC (33.0-37.0) g/dL RDW (11.5-14.5) % Plt Count (130-400) K/uL MPV (7.2-11.7) fL Neut % (Auto) (50.0-75.0) % Lymph % (Auto) (20.0-40.0) % [place] % (Auto) (0.0-10.0) % Eos % (Auto) (0.0-4.0) % Baso % (Auto) (0.0-2.0) % Neut # (Auto) (1.8-7.0) K/uL Lymph # (Auto) (1.0-4.3) K/uL [place] # (Auto) (0.0-0.8) K/uL Eos # (Auto) (0.0-0.7) K/uL Baso # (Auto) (0.0-0.2) K/uL Neutrophils % (Manual) (50-75) % Lymphocytes % (Manual) (20-40) % Monocytes % (Manual) (0-10) % Platelet Estimate (NORMAL) RBC Morphology PT (9.7-12.2) SECONDS INR APTT (21-34) SECONDS Puncture Site pCO2 (35-45) mm/Hg pO2 (80-100) mm/Hg HCO3 (21-28) mmol/L ABG pH (7.35-7.45) ABG Total CO2 (22-28) mmol/L ABG O2 Saturation (95-98) % ABG Base Excess (-2.0-3.0) mmol/L ABG Hemoglobin (11.7-17.4) g/dL ABG Carboxyhemoglobin (0.5-1.5) % POC ABG HHb (Measured) (0.0-5.0) % ABG Methemoglobin (0.0-3.0) % Álvaro Test A-a O2 Difference mm/Hg Respiratory Index Hgb O2 Saturation (95.0-98.0) % Vent Mode FiO2 % PEEP Pressure Support Sodium (132-148) mmol/L Potassium (3.6-5.2) mmol/L Chloride (98-107) mmol/L Carbon Dioxide (22-30) mmol/L Anion Gap (10-20) BUN (9-20) mg/dL Creatinine (0.8-1.5) mg/dL Est GFR ( Amer) Est GFR (Non-Af Amer) POC Glucose (mg/dL) 232 H (65-110) mg/dL Random Glucose (75-110) mg/dL Calcium (8.6-10.4) mg/dl Phosphorus (2.5-4.5) mg/dL Magnesium (1.6-2.3) mg/dL Total Bilirubin (0.2-1.3) mg/dL AST (17-59) U/L ALT (21-72) U/L Alkaline Phosphatase (38-126) U/L Total Creatine Kinase (55-170) U/L CK-MB (Mass) (0.0-3.38) ng/mL Troponin I (0.00-0.120) ng/mL Total Protein (6.3-8.3) g/dL Albumin (3.5-5.0) g/dL Globulin (2.2-3.9) gm/dL Albumin/Globulin Ratio (1.0-2.1) Procalcitonin (0.19-0.49) NG/ML Laboratory Results - last 24 hr 01/09/19 01/09/19 01/09/19 11:57 13:30 17:38 WBC RBC Hgb Hct MCV MCH MCHC RDW Plt Count MPV Neut % (Auto) Lymph % (Auto) [place] % (Auto) Eos % (Auto) Baso % (Auto) Neut # (Auto) Lymph # (Auto) [place] # (Auto) Eos # (Auto) Baso # (Auto) Neutrophils % (Manual) Lymphocytes % (Manual) Monocytes % (Manual) Platelet Estimate RBC Morphology PT INR APTT Puncture Site Lr pCO2 39 pO2 133 H HCO3 25.6 ABG pH 7.42 ABG Total CO2 26.5 ABG O2 Saturation 98.4 H ABG Base Excess 0.8 ABG Hemoglobin 11.4 L ABG Carboxyhemoglobin 0.5 POC ABG HHb (Measured) 1.6 ABG Methemoglobin 0.5 Álvaro Test Pos A-a O2 Difference 103.0 Respiratory Index 0.8 Hgb O2 Saturation 97.5 Vent Mode Cpap FiO2 40.0 PEEP 5 Pressure Support 10 Sodium Potassium Chloride Carbon Dioxide Anion Gap BUN Creatinine Est GFR ( Amer) Est GFR (Non-Af Amer) POC Glucose (mg/dL) 232 H 255 H Random Glucose Calcium Phosphorus Magnesium Total Bilirubin AST ALT Alkaline Phosphatase Total Creatine Kinase CK-MB (Mass) Troponin I Total Protein Albumin Globulin Albumin/Globulin Ratio Procalcitonin 01/10/19 01/10/19 01/10/19 03:02 03:02 03:02 WBC 23.6 H RBC 4.27 L Hgb 12.8 Hct 39.3 MCV 92.2 MCH 30.0 MCHC 32.6 L RDW 14.2 Plt Count 228 MPV 7.7 Neut % (Auto) 93.5 H Lymph % (Auto) 1.5 L [place] % (Auto) 4.9 Eos % (Auto) 0.0 Baso % (Auto) 0.1 Neut # (Auto) 22.1 H Lymph # (Auto) 0.3 L [place] # (Auto) 1.2 H Eos # (Auto) 0.0 Baso # (Auto) 0.0 Neutrophils % (Manual) 92 H Lymphocytes % (Manual) 2 L Monocytes % (Manual) 6 Platelet Estimate Normal RBC Morphology Normal PT 12.0 INR 1.1 APTT 31 D Puncture Site pCO2 pO2 HCO3 ABG pH ABG Total CO2 ABG O2 Saturation ABG Base Excess ABG Hemoglobin ABG Carboxyhemoglobin POC ABG HHb (Measured) ABG Methemoglobin Álvaro Test A-a O2 Difference Respiratory Index Hgb O2 Saturation Vent Mode FiO2 PEEP Pressure Support Sodium 138 Potassium 3.9 Chloride 105 Carbon Dioxide 25 Anion Gap 12 BUN 32 H Creatinine 1.9 H Est GFR ( Amer) 41 Est GFR (Non-Af Amer) 34 POC Glucose (mg/dL) Random Glucose 242 H Calcium 8.5 L Phosphorus 3.4 Magnesium 2.6 H Total Bilirubin 0.6 AST 85 H D ALT 21 Alkaline Phosphatase 56 Total Creatine Kinase 1358 H CK-MB (Mass) 9.01 H Troponin I 1.4900 H* Total Protein 6.5 Albumin 3.8 Globulin 2.7 Albumin/Globulin Ratio 1.4 Procalcitonin 01/10/19 01/10/19 01/10/19 07:19 08:22 09:06 WBC RBC Hgb Hct MCV MCH MCHC RDW Plt Count MPV Neut % (Auto) Lymph % (Auto) [place] % (Auto) Eos % (Auto) Baso % (Auto) Neut # (Auto) Lymph # (Auto) [place] # (Auto) Eos # (Auto) Baso # (Auto) Neutrophils % (Manual) Lymphocytes % (Manual) Monocytes % (Manual) Platelet Estimate RBC Morphology PT INR APTT Puncture Site Rba pCO2 44 pO2 73 L HCO3 29.5 H ABG pH 7.45 ABG Total CO2 32.0 H ABG O2 Saturation 96.1 ABG Base Excess 5.9 H ABG Hemoglobin 11.9 ABG Carboxyhemoglobin 0.9 POC ABG HHb (Measured) 3.8 ABG Methemoglobin 0.5 Álvaro Test Na A-a O2 Difference 22.0 Respiratory Index 0.3 Hgb O2 Saturation 94.8 L Vent Mode FiO2 21.0 PEEP Pressure Support Sodium Potassium Chloride Carbon Dioxide Anion Gap BUN Creatinine Est GFR ( Amer) Est GFR (Non-Af Amer) POC Glucose (mg/dL) 223 H Random Glucose Calcium Phosphorus Magnesium Total Bilirubin AST ALT Alkaline Phosphatase Total Creatine Kinase CK-MB (Mass) Troponin I Total Protein Albumin Globulin Albumin/Globulin Ratio Procalcitonin 0.13 L 01/10/19 11:19 WBC RBC Hgb Hct MCV MCH MCHC RDW Plt Count MPV Neut % (Auto) Lymph % (Auto) [place] % (Auto) Eos % (Auto) Baso % (Auto) Neut # (Auto) Lymph # (Auto) [place] # (Auto) Eos # (Auto) Baso # (Auto) Neutrophils % (Manual) Lymphocytes % (Manual) Monocytes % (Manual) Platelet Estimate RBC Morphology PT INR APTT Puncture Site pCO2 pO2 HCO3 ABG pH ABG Total CO2 ABG O2 Saturation ABG Base Excess ABG Hemoglobin ABG Carboxyhemoglobin POC ABG HHb (Measured) ABG Methemoglobin Álvaro Test A-a O2 Difference Respiratory Index Hgb O2 Saturation Vent Mode FiO2 PEEP Pressure Support Sodium Potassium Chloride Carbon Dioxide Anion Gap BUN Creatinine Est GFR ( Amer) Est GFR (Non-Af Amer) POC Glucose (mg/dL) 211 H Random Glucose Calcium Phosphorus Magnesium Total Bilirubin AST ALT Alkaline Phosphatase Total Creatine Kinase CK-MB (Mass) Troponin I Total Protein Albumin Globulin Albumin/Globulin Ratio Procalcitonin Radiology Impressions: Radiology Impressions Duplex Scan Lower Extremity Artery 01/08/19 10:35 IMPRESSION: Right: No evidence of deep or superficial vein thrombosis of the right lower extremity. Normal valve function noted of the right side. Left: No evidence of deep or superficial vein thrombosis of the left lower extremity. Normal valve function noted of the left side. Chest X-Ray 01/10/19 08:30 Impression: Mild venous congestion. Patchy increased markings at the left lung base. Small granuloma at the right lung apex. Cardiomegaly. Enlarged ectatic aorta with atherosclerotic calcification at the aortic knob. Status post median sternotomy. Head CT 01/10/19 09:22 IMPRESSION: No acute intracranial abnormality. Mild chronic microangiopathic changes and moderate age-related global parenchymal volume loss. Fingerstick Blood Sugar Results: 211 Critical Care Progress Note - Nutrition Nutrition: Nutrition Category Date Time Status Heart Healthy Diet [DIET] Diets 01/10/19 Breakfast Active Assessment/Plan - Assessment and Plan (Free Text) Assessment: Pt is an 78 y/o male with hx of Asthma/COPD, CAD (s/p CABG 10 years ago) admitted for hypercapnic respiratory failure s/p intubation on 01/08 and extubation on 01/09. Occasionally still SOB requiring BIPAP intermittently. Pt was also noted to have elevated troponins, Altered mental status, and SERA. Neuro - Alert, oriented to name only - New onset, possible ICU delirium as mentation waxes and wanes thru the day - No hx of underlying psychiatric condition as per family - Head CT (01/10/19): no acute findings - Possible steroid delirium, reduced dosage today - Will encourage OOB Cardio - Hemodynamically stable - Troponins: 1.7>3.1>2.4>1.49. Downward trend - CK MB elevated 5.63>9.01 - Cardiology, Dr. Ludwig. Possible cath tomorrow. - Echo pending - ProBNP normal - ASA, Metoprolol, Statin, and Therapeutic Heparin ggt Respiratory - Hypercapnic respiratory failure on admission, s/p intubation on 01/08 and extubation on 01/09 - Reactive airway disease, possible COPD - Albuterol q4, Methylprednisone 20mg IV daily - Cxray appeared congested this am, Lasix 40mg IV x1 given - C/W BIPAP as needed: IPAP 12, EPAP 6 40% FIO2 Renal - SERA - BUN 32/1.9 - Electrolytes stable - Acid/Base status stable, Bicarb ggt d/c today ID - Afebrile, Leukocytosis 23.6 (may be effect of steroids vs infectious process) - Possible Left lung PNU on Cxray - C/W Zosyn - F/u Procalcitonin - Bcx and Ucx negative from 01/08 GI - Heart Health Diet Endocrine - Hx of Diabetes - Metforming held in light of SERA - ISS, Acucheck q6, hypoglycemic protocol Lines - None Discussed case with Dr. Jojo Wilde, PGY2 <Tejas Uribe - Last Filed: 01/10/19 16:47> CCU Objective - Vital Signs / Intake & Output Vital Signs (Last 4 hours): Vital Signs Temp Pulse Resp BP Pulse Ox 01/10/19 16:00 98.5 F 83 18 144/77 100 01/10/19 15:00 86 17 164/89 H 100 01/10/19 14:00 87 18 156/98 H 100 01/10/19 13:00 80 19 147/79 100 Intake and Output (Last 8hrs): Intake & Output 01/10/19 01/10/19 01/10/19 06:59 14:59 22:59 Intake Total 624.9 713.1 136.6 Output Total 800 450 500 Balance -175.1 263.1 -363.4 Intake: IV 200 53 Intake, IV Amount 424.9 420.1 16.6 Left Hand 8.3 16.6 RFA2 11.8 Right Forearm 400 400 Right Hand 24.9 Oral 240 120 Output: Urine 800 450 500 Urethral (Sands) 800 450 500 - Medications Active Medications: Active Medications Generic Name Dose Route Start Last Admin Trade Name Freq PRN Reason Stop Dose Admin Albuterol Sulfate 2.5 mg 01/08/19 20:00 01/10/19 11:31 Albuterol 0.083% Inhal Ree (2.5 Mg/3 Ml) Ud IH 2.5 mg RQ4 JAMES Administration Aspirin 81 mg 01/09/19 10:00 01/10/19 10:04 Ecotrin PO 81 mg DAILY JAMES Administration Famotidine 20 mg 01/08/19 11:00 01/10/19 10:04 Pepcid IVP 20 mg DAILY JAMES Administration Piperacillin Sod/Tazobactam 100 mls @ 200 mls/hr 01/08/19 11:00 01/10/19 10:43 Sod 3.375 gm/ Sodium Chloride IVPB 200 mls/hr Q8H JAMES Administration Protocol Dexmedetomidine HCl 200 mcg/ 50 mls @ 4.54 mls/hr 01/08/19 15:16 01/10/19 11:03 Sodium Chloride IV 0 mcg/kg/hr TITR PRN 0 mls/hr Agitation Titration Protocol 0.2 MCG/KG/HR Heparin Sodium/Sodium Chloride 25,000 units in 250 mls @ 8.28 mls/hr 01/08/19 22:59 01/10/19 12:51 Heparin 33531 Units/250ml 1/2 Normal Saline IV 9 units/kg/hr .Q24H PRN 8.28 mls/hr ADJUST RATE PER PROTOCOL Titration Protocol 9 UNITS/KG/HR Insulin Aspart 0 unit 01/10/19 07:30 01/10/19 16:32 Novolog SC 3 u ACHS JAMES Administration Protocol Methylprednisolone 20 mg 01/10/19 10:00 01/10/19 10:03 Solu-Medrol IVP 20 mg DAILY JAMES Administration Metoprolol Tartrate 50 mg 01/08/19 18:00 01/10/19 10:04 Lopressor PO 50 mg BID JAMES Administration Rosuvastatin Calcium 10 mg 01/08/19 22:00 01/09/19 21:32 Crestor PO 10 mg HS JAMES Administration Sitagliptin Phosphate 50 mg 01/09/19 15:30 01/10/19 13:05 Januvia PO 50 mg DAILY JAMES Administration - Patient Studies Lab Studies: Microbiology Studies 01/08/19 21:11 Urine Culture - Final Urine,[place] No Growth (<1,000 CFU/ML) 01/08/19 07:35 Blood Culture - Preliminary Blood NO GROWTH AFTER 48 HOURS 01/08/19 07:20 Blood Culture - Preliminary Blood NO GROWTH AFTER 48 HOURS 01/08/19 15:18 MRSA Culture (Admit) - Final Naris MRSA NOT DETECTED Lab Studies 01/10/19 01/10/19 01/10/19 Range/Units 13:37 13:04 11:19 WBC (4.8-10.8) K/uL RBC (4.40-5.90) Mil/uL Hgb (12.0-18.0) g/dL Hct (35.0-51.0) % MCV (80.0-94.0) fL MCH (27.0-31.0) pg MCHC (33.0-37.0) g/dL RDW (11.5-14.5) % Plt Count (130-400) K/uL MPV (7.2-11.7) fL Neut % (Auto) (50.0-75.0) % Lymph % (Auto) (20.0-40.0) % [place] % (Auto) (0.0-10.0) % Eos % (Auto) (0.0-4.0) % Baso % (Auto) (0.0-2.0) % Neut # (Auto) (1.8-7.0) K/uL Lymph # (Auto) (1.0-4.3) K/uL [place] # (Auto) (0.0-0.8) K/uL Eos # (Auto) (0.0-0.7) K/uL Baso # (Auto) (0.0-0.2) K/uL Neutrophils % (Manual) (50-75) % Lymphocytes % (Manual) (20-40) % Monocytes % (Manual) (0-10) % Platelet Estimate (NORMAL) RBC Morphology PT (9.7-12.2) SECONDS INR APTT 27 (21-34) SECONDS Puncture Site pCO2 (35-45) mm/Hg pO2 (80-100) mm/Hg HCO3 (21-28) mmol/L ABG pH (7.35-7.45) ABG Total CO2 (22-28) mmol/L ABG O2 Saturation (95-98) % ABG Base Excess (-2.0-3.0) mmol/L ABG Hemoglobin (11.7-17.4) g/dL ABG Carboxyhemoglobin (0.5-1.5) % POC ABG HHb (Measured) (0.0-5.0) % ABG Methemoglobin (0.0-3.0) % Álvaro Test A-a O2 Difference mm/Hg Respiratory Index Hgb O2 Saturation (95.0-98.0) % FiO2 % Sodium (132-148) mmol/L Potassium (3.6-5.2) mmol/L Chloride (98-107) mmol/L Carbon Dioxide (22-30) mmol/L Anion Gap (10-20) BUN (9-20) mg/dL Creatinine (0.8-1.5) mg/dL Est GFR ( Amer) Est GFR (Non-Af Amer) POC Glucose (mg/dL) 211 H (65-110) mg/dL Random Glucose (75-110) mg/dL Calcium (8.6-10.4) mg/dl Phosphorus (2.5-4.5) mg/dL Magnesium (1.6-2.3) mg/dL Total Bilirubin (0.2-1.3) mg/dL AST (17-59) U/L ALT (21-72) U/L Alkaline Phosphatase (38-126) U/L Total Creatine Kinase (55-170) U/L CK-MB (Mass) (0.0-3.38) ng/mL Troponin I 2.6600 H* (0.00-0.120) ng/mL Total Protein (6.3-8.3) g/dL Albumin (3.5-5.0) g/dL Globulin (2.2-3.9) gm/dL Albumin/Globulin Ratio (1.0-2.1) Procalcitonin (0.19-0.49) NG/ML 01/10/19 01/10/19 01/10/19 Range/Units 09:06 08:22 07:19 WBC (4.8-10.8) K/uL RBC (4.40-5.90) Mil/uL Hgb (12.0-18.0) g/dL Hct (35.0-51.0) % MCV (80.0-94.0) fL MCH (27.0-31.0) pg MCHC (33.0-37.0) g/dL RDW (11.5-14.5) % Plt Count (130-400) K/uL MPV (7.2-11.7) fL Neut % (Auto) (50.0-75.0) % Lymph % (Auto) (20.0-40.0) % [place] % (Auto) (0.0-10.0) % Eos % (Auto) (0.0-4.0) % Baso % (Auto) (0.0-2.0) % Neut # (Auto) (1.8-7.0) K/uL Lymph # (Auto) (1.0-4.3) K/uL [place] # (Auto) (0.0-0.8) K/uL Eos # (Auto) (0.0-0.7) K/uL Baso # (Auto) (0.0-0.2) K/uL Neutrophils % (Manual) (50-75) % Lymphocytes % (Manual) (20-40) % Monocytes % (Manual) (0-10) % Platelet Estimate (NORMAL) RBC Morphology PT (9.7-12.2) SECONDS INR APTT (21-34) SECONDS Puncture Site Rba pCO2 44 (35-45) mm/Hg pO2 73 L (80-100) mm/Hg HCO3 29.5 H (21-28) mmol/L ABG pH 7.45 (7.35-7.45) ABG Total CO2 32.0 H (22-28) mmol/L ABG O2 Saturation 96.1 (95-98) % ABG Base Excess 5.9 H (-2.0-3.0) mmol/L ABG Hemoglobin 11.9 (11.7-17.4) g/dL ABG Carboxyhemoglobin 0.9 (0.5-1.5) % POC ABG HHb (Measured) 3.8 (0.0-5.0) % ABG Methemoglobin 0.5 (0.0-3.0) % Álvaro Test Na A-a O2 Difference 22.0 mm/Hg Respiratory Index 0.3 Hgb O2 Saturation 94.8 L (95.0-98.0) % FiO2 21.0 % Sodium (132-148) mmol/L Potassium (3.6-5.2) mmol/L Chloride (98-107) mmol/L Carbon Dioxide (22-30) mmol/L Anion Gap (10-20) BUN (9-20) mg/dL Creatinine (0.8-1.5) mg/dL Est GFR ( Amer) Est GFR (Non-Af Amer) POC Glucose (mg/dL) 223 H (65-110) mg/dL Random Glucose (75-110) mg/dL Calcium (8.6-10.4) mg/dl Phosphorus (2.5-4.5) mg/dL Magnesium (1.6-2.3) mg/dL Total Bilirubin (0.2-1.3) mg/dL AST (17-59) U/L ALT (21-72) U/L Alkaline Phosphatase (38-126) U/L Total Creatine Kinase (55-170) U/L CK-MB (Mass) (0.0-3.38) ng/mL Troponin I (0.00-0.120) ng/mL Total Protein (6.3-8.3) g/dL Albumin (3.5-5.0) g/dL Globulin (2.2-3.9) gm/dL Albumin/Globulin Ratio (1.0-2.1) Procalcitonin 0.13 L (0.19-0.49) NG/ML 01/10/19 01/10/19 01/10/19 Range/Units 03:02 03:02 03:02 WBC 23.6 H (4.8-10.8) K/uL RBC 4.27 L (4.40-5.90) Mil/uL Hgb 12.8 (12.0-18.0) g/dL Hct 39.3 (35.0-51.0) % MCV 92.2 (80.0-94.0) fL MCH 30.0 (27.0-31.0) pg MCHC 32.6 L (33.0-37.0) g/dL RDW 14.2 (11.5-14.5) % Plt Count 228 (130-400) K/uL MPV 7.7 (7.2-11.7) fL Neut % (Auto) 93.5 H (50.0-75.0) % Lymph % (Auto) 1.5 L (20.0-40.0) % [place] % (Auto) 4.9 (0.0-10.0) % Eos % (Auto) 0.0 (0.0-4.0) % Baso % (Auto) 0.1 (0.0-2.0) % Neut # (Auto) 22.1 H (1.8-7.0) K/uL Lymph # (Auto) 0.3 L (1.0-4.3) K/uL [place] # (Auto) 1.2 H (0.0-0.8) K/uL Eos # (Auto) 0.0 (0.0-0.7) K/uL Baso # (Auto) 0.0 (0.0-0.2) K/uL Neutrophils % (Manual) 92 H (50-75) % Lymphocytes % (Manual) 2 L (20-40) % Monocytes % (Manual) 6 (0-10) % Platelet Estimate Normal (NORMAL) RBC Morphology Normal PT 12.0 (9.7-12.2) SECONDS INR 1.1 APTT 31 D (21-34) SECONDS Puncture Site pCO2 (35-45) mm/Hg pO2 (80-100) mm/Hg HCO3 (21-28) mmol/L ABG pH (7.35-7.45) ABG Total CO2 (22-28) mmol/L ABG O2 Saturation (95-98) % ABG Base Excess (-2.0-3.0) mmol/L ABG Hemoglobin (11.7-17.4) g/dL ABG Carboxyhemoglobin (0.5-1.5) % POC ABG HHb (Measured) (0.0-5.0) % ABG Methemoglobin (0.0-3.0) % Álvaro Test A-a O2 Difference mm/Hg Respiratory Index Hgb O2 Saturation (95.0-98.0) % FiO2 % Sodium 138 (132-148) mmol/L Potassium 3.9 (3.6-5.2) mmol/L Chloride 105 (98-107) mmol/L Carbon Dioxide 25 (22-30) mmol/L Anion Gap 12 (10-20) BUN 32 H (9-20) mg/dL Creatinine 1.9 H (0.8-1.5) mg/dL Est GFR ( Amer) 41 Est GFR (Non-Af Amer) 34 POC Glucose (mg/dL) (65-110) mg/dL Random Glucose 242 H (75-110) mg/dL Calcium 8.5 L (8.6-10.4) mg/dl Phosphorus 3.4 (2.5-4.5) mg/dL Magnesium 2.6 H (1.6-2.3) mg/dL Total Bilirubin 0.6 (0.2-1.3) mg/dL AST 85 H D (17-59) U/L ALT 21 (21-72) U/L Alkaline Phosphatase 56 (38-126) U/L Total Creatine Kinase 1358 H (55-170) U/L CK-MB (Mass) 9.01 H (0.0-3.38) ng/mL Troponin I 1.4900 H* (0.00-0.120) ng/mL Total Protein 6.5 (6.3-8.3) g/dL Albumin 3.8 (3.5-5.0) g/dL Globulin 2.7 (2.2-3.9) gm/dL Albumin/Globulin Ratio 1.4 (1.0-2.1) Procalcitonin (0.19-0.49) NG/ML 01/09/19 01/09/19 Range/Units 17:38 11:57 WBC (4.8-10.8) K/uL RBC (4.40-5.90) Mil/uL Hgb (12.0-18.0) g/dL Hct (35.0-51.0) % MCV (80.0-94.0) fL MCH (27.0-31.0) pg MCHC (33.0-37.0) g/dL RDW (11.5-14.5) % Plt Count (130-400) K/uL MPV (7.2-11.7) fL Neut % (Auto) (50.0-75.0) % Lymph % (Auto) (20.0-40.0) % [place] % (Auto) (0.0-10.0) % Eos % (Auto) (0.0-4.0) % Baso % (Auto) (0.0-2.0) % Neut # (Auto) (1.8-7.0) K/uL Lymph # (Auto) (1.0-4.3) K/uL [place] # (Auto) (0.0-0.8) K/uL Eos # (Auto) (0.0-0.7) K/uL Baso # (Auto) (0.0-0.2) K/uL Neutrophils % (Manual) (50-75) % Lymphocytes % (Manual) (20-40) % Monocytes % (Manual) (0-10) % Platelet Estimate (NORMAL) RBC Morphology PT (9.7-12.2) SECONDS INR APTT (21-34) SECONDS Puncture Site pCO2 (35-45) mm/Hg pO2 (80-100) mm/Hg HCO3 (21-28) mmol/L ABG pH (7.35-7.45) ABG Total CO2 (22-28) mmol/L ABG O2 Saturation (95-98) % ABG Base Excess (-2.0-3.0) mmol/L ABG Hemoglobin (11.7-17.4) g/dL ABG Carboxyhemoglobin (0.5-1.5) % POC ABG HHb (Measured) (0.0-5.0) % ABG Methemoglobin (0.0-3.0) % Álvaro Test A-a O2 Difference mm/Hg Respiratory Index Hgb O2 Saturation (95.0-98.0) % FiO2 % Sodium (132-148) mmol/L Potassium (3.6-5.2) mmol/L Chloride (98-107) mmol/L Carbon Dioxide (22-30) mmol/L Anion Gap (10-20) BUN (9-20) mg/dL Creatinine (0.8-1.5) mg/dL Est GFR ( Amer) Est GFR (Non-Af Amer) POC Glucose (mg/dL) 255 H 232 H (65-110) mg/dL Random Glucose (75-110) mg/dL Calcium (8.6-10.4) mg/dl Phosphorus (2.5-4.5) mg/dL Magnesium (1.6-2.3) mg/dL Total Bilirubin (0.2-1.3) mg/dL AST (17-59) U/L ALT (21-72) U/L Alkaline Phosphatase (38-126) U/L Total Creatine Kinase (55-170) U/L CK-MB (Mass) (0.0-3.38) ng/mL Troponin I (0.00-0.120) ng/mL Total Protein (6.3-8.3) g/dL Albumin (3.5-5.0) g/dL Globulin (2.2-3.9) gm/dL Albumin/Globulin Ratio (1.0-2.1) Procalcitonin (0.19-0.49) NG/ML Laboratory Results - last 24 hr 01/09/19 01/09/19 01/10/19 11:57 17:38 03:02 WBC 23.6 H RBC 4.27 L Hgb 12.8 Hct 39.3 MCV 92.2 MCH 30.0 MCHC 32.6 L RDW 14.2 Plt Count 228 MPV 7.7 Neut % (Auto) 93.5 H Lymph % (Auto) 1.5 L [place] % (Auto) 4.9 Eos % (Auto) 0.0 Baso % (Auto) 0.1 Neut # (Auto) 22.1 H Lymph # (Auto) 0.3 L [place] # (Auto) 1.2 H Eos # (Auto) 0.0 Baso # (Auto) 0.0 Neutrophils % (Manual) 92 H Lymphocytes % (Manual) 2 L Monocytes % (Manual) 6 Platelet Estimate Normal RBC Morphology Normal PT INR APTT Puncture Site pCO2 pO2 HCO3 ABG pH ABG Total CO2 ABG O2 Saturation ABG Base Excess ABG Hemoglobin ABG Carboxyhemoglobin POC ABG HHb (Measured) ABG Methemoglobin Álvaro Test A-a O2 Difference Respiratory Index Hgb O2 Saturation FiO2 Sodium Potassium Chloride Carbon Dioxide Anion Gap BUN Creatinine Est GFR ( Amer) Est GFR (Non-Af Amer) POC Glucose (mg/dL) 232 H 255 H Random Glucose Calcium Phosphorus Magnesium Total Bilirubin AST ALT Alkaline Phosphatase Total Creatine Kinase CK-MB (Mass) Troponin I Total Protein Albumin Globulin Albumin/Globulin Ratio Procalcitonin 01/10/19 01/10/19 01/10/19 03:02 03:02 07:19 WBC RBC Hgb Hct MCV MCH MCHC RDW Plt Count MPV Neut % (Auto) Lymph % (Auto) [place] % (Auto) Eos % (Auto) Baso % (Auto) Neut # (Auto) Lymph # (Auto) [place] # (Auto) Eos # (Auto) Baso # (Auto) Neutrophils % (Manual) Lymphocytes % (Manual) Monocytes % (Manual) Platelet Estimate RBC Morphology PT 12.0 INR 1.1 APTT 31 D Puncture Site pCO2 pO2 HCO3 ABG pH ABG Total CO2 ABG O2 Saturation ABG Base Excess ABG Hemoglobin ABG Carboxyhemoglobin POC ABG HHb (Measured) ABG Methemoglobin Álvaro Test A-a O2 Difference Respiratory Index Hgb O2 Saturation FiO2 Sodium 138 Potassium 3.9 Chloride 105 Carbon Dioxide 25 Anion Gap 12 BUN 32 H Creatinine 1.9 H Est GFR ( Amer) 41 Est GFR (Non-Af Amer) 34 POC Glucose (mg/dL) 223 H Random Glucose 242 H Calcium 8.5 L Phosphorus 3.4 Magnesium 2.6 H Total Bilirubin 0.6 AST 85 H D ALT 21 Alkaline Phosphatase 56 Total Creatine Kinase 1358 H CK-MB (Mass) 9.01 H Troponin I 1.4900 H* Total Protein 6.5 Albumin 3.8 Globulin 2.7 Albumin/Globulin Ratio 1.4 Procalcitonin 01/10/19 01/10/19 01/10/19 08:22 09:06 11:19 WBC RBC Hgb Hct MCV MCH MCHC RDW Plt Count MPV Neut % (Auto) Lymph % (Auto) [place] % (Auto) Eos % (Auto) Baso % (Auto) Neut # (Auto) Lymph # (Auto) [place] # (Auto) Eos # (Auto) Baso # (Auto) Neutrophils % (Manual) Lymphocytes % (Manual) Monocytes % (Manual) Platelet Estimate RBC Morphology PT INR APTT Puncture Site Rba pCO2 44 pO2 73 L HCO3 29.5 H ABG pH 7.45 ABG Total CO2 32.0 H ABG O2 Saturation 96.1 ABG Base Excess 5.9 H ABG Hemoglobin 11.9 ABG Carboxyhemoglobin 0.9 POC ABG HHb (Measured) 3.8 ABG Methemoglobin 0.5 Álvaro Test Na A-a O2 Difference 22.0 Respiratory Index 0.3 Hgb O2 Saturation 94.8 L FiO2 21.0 Sodium Potassium Chloride Carbon Dioxide Anion Gap BUN Creatinine Est GFR ( Amer) Est GFR (Non-Af Amer) POC Glucose (mg/dL) 211 H Random Glucose Calcium Phosphorus Magnesium Total Bilirubin AST ALT Alkaline Phosphatase Total Creatine Kinase CK-MB (Mass) Troponin I Total Protein Albumin Globulin Albumin/Globulin Ratio Procalcitonin 0.13 L 01/10/19 01/10/19 13:04 13:37 WBC RBC Hgb Hct MCV MCH MCHC RDW Plt Count MPV Neut % (Auto) Lymph % (Auto) [place] % (Auto) Eos % (Auto) Baso % (Auto) Neut # (Auto) Lymph # (Auto) [place] # (Auto) Eos # (Auto) Baso # (Auto) Neutrophils % (Manual) Lymphocytes % (Manual) Monocytes % (Manual) Platelet Estimate RBC Morphology PT INR APTT 27 Puncture Site pCO2 pO2 HCO3 ABG pH ABG Total CO2 ABG O2 Saturation ABG Base Excess ABG Hemoglobin ABG Carboxyhemoglobin POC ABG HHb (Measured) ABG Methemoglobin Álvaro Test A-a O2 Difference Respiratory Index Hgb O2 Saturation FiO2 Sodium Potassium Chloride Carbon Dioxide Anion Gap BUN Creatinine Est GFR ( Amer) Est GFR (Non-Af Amer) POC Glucose (mg/dL) Random Glucose Calcium Phosphorus Magnesium Total Bilirubin AST ALT Alkaline Phosphatase Total Creatine Kinase CK-MB (Mass) Troponin I 2.6600 H* Total Protein Albumin Globulin Albumin/Globulin Ratio Procalcitonin Radiology Impressions: Radiology Impressions Duplex Scan Lower Extremity Artery 01/08/19 10:35 IMPRESSION: Right: No evidence of deep or superficial vein thrombosis of the right lower extremity. Normal valve function noted of the right side. Left: No evidence of deep or superficial vein thrombosis of the left lower extremity. Normal valve function noted of the left side. Chest X-Ray 01/10/19 08:30 Impression: Mild venous congestion. Patchy increased markings at the left lung base. Small granuloma at the right lung apex. Cardiomegaly. Enlarged ectatic aorta with atherosclerotic calcification at the aortic knob. Status post median sternotomy. Head CT 01/10/19 09:22 IMPRESSION: No acute intracranial abnormality. Mild chronic microangiopathic changes and moderate age-related global parenchymal volume loss. Critical Care Progress Note - Nutrition Nutrition: Nutrition Category Date Time Status Heart Healthy Diet [DIET] Diets 01/10/19 Breakfast Active Attending/Attestation - Attestation I have personally seen and examined this patient.: Yes I have fully participated in the care of the patient.: Yes I have reviewed all pertinent clinical information: Yes Notes (Text): 01/10/19 16:47 Patient this morning was in severe respiratory distress. He was receiving bicarb drip, which he discontinued. Placed on BiPAP. Lasix 40 mg given. Now patient is feeling better. But he still confused. CT scan of the head negative. We will continue to monitor closely. Bronchodilators. We will follow the patient
--- NOTE | 2019-01-10 15:04 | CARD ---
APPROVED REPORT Date of service: 01/09/2019 EKG Measurement Heart [id number] <Conclusion> Sinus rhythm with 1st degree AV block Septal infarct, age undetermined Abnormal ECG
--- NOTE | 2019-01-10 15:46 | CARD ---
APPROVED REPORT Date of service: 01/10/2019 EXAM: Two-dimensional and M-mode echocardiogram with Doppler and color Doppler. Other Information Quality : Technically LimitedRhythm : INDICATION Dyspnea CAD Congestive Heart Failure COPD Surgery/Intervention CABG: RISK FACTORS Hypertension Hyperlipidemia Diabetes 2D DIMENSIONS IVSd1.0 (0.7-1.1cm)LVDd3.9 (3.9-5.9cm) LVOT Diameter2.4 (1.8-2.4cm)PWd1.0 (0.7-1.1cm) LA Xzmexi33 (18-58mL)LVDs3.0 (2.5-4.0cm) FS (%) 21.8 %LVEF (%)44.7 (>50%) M-Mode DIMENSIONS Left Atrium (MM)3.69 (2.5-4.0cm)Aortic Root4.50 (2.2-3.7cm) Aortic Cusp Exc.1.19 (1.5-2.0cm) Aortic Valve AoV Peak Kyjvovcq789.3cm/Van Peak GR.8mmHg Mitral Valve MV E Ikbemqgx76.2cm/sMV A Spntnhjg84.7cm/sE/A ratio1.0 TDI Lateral E' Peak V7.06cm/sMedial E' Peak V4.48cm/sE/Lateral E'12.5 E/Medial E'19.7 Tricuspid Valve TR Peak Xnvfrukk039pd/sTR Peak Gr.02xtGwTJMR05sxNv <Conclusion> tds. very poor window. la,lv & ra rv size appears normal. lvh with normal lv systolic function with lvef of 50-55%. sclerotic trileaflet aortic valve. aortic root & scleroitc & mildly dilated. mild tr with normal pulmonary systolic pressures of 20 mm of hg. no pericardial effusion. clinical correlation is adv.
[2019-01-10] MEDS: Heparin25000 units/250ml 1/2NS 25,000 UNITS/250 ML BAG IV PRN (17:22)
[2019-01-11] MEDS: Albuterol 0.083% Inhal Sol (2.5 mg/3 mL) UD IH SCH ×5 (00:08→16:20)
[2019-01-11] MEDS: Piperacillin/Tazobact 3.375 GM in Sodium Chloride 100 ML IVPB SCH ×3 (02:16→18:08)
[2019-01-11 06:31] LABS: BASO # 0.1 K/uL (0.0-0.2); BASO % 0.5 % (0.0-2.0); EOS % 0.1 % (0.0-4.0); HEMOGLOBIN 13.2 g/dL (12.0-18.0); LYMPH # 1.1 K/uL (1.0-4.3); MEAN CELL VOLUME 91.8 fL (80.0-94.0); MEAN CORPUSCULAR HEMOGLOBIN 29.8 pg (27.0-31.0); MEAN CORPUSCULAR HGB CONC 32.5 g/dL (33.0-37.0); MEAN PLATELET VOLUME 8.2 fL (7.2-11.7); MONO % 11.5 % (0.0-10.0); NEUT # 14.5 K/uL (1.8-7.0); NEUT % 81.9 % (50.0-75.0); PLATELET COUNT 241 K/uL (130-400); RBC 4.43 Mil/uL (4.40-5.90); RED CELL DISTRIBUTION WIDTH 14.4 % (11.5-14.5); WHITE BLOOD COUNT 17.6 K/uL (4.8-10.8)
[2019-01-11 06:44] LABS: ALB/GLOB RATIO 1.3 (1.0-2.1); ALBUMIN 3.7 g/dL (3.5-5.0); CALCIUM 8.6 mg/dl (8.6-10.4)
[2019-01-11 06:56] LABS: TROPONIN I 2.4 ng/mL (0.00-0.120)
[2019-01-11] MEDS: (Novolog) Insulin Aspart, Recombinant 100 u/ml 10 ml vial SC SCH ×4 (07:45→22:29)
[2019-01-11 07:55] LABS: BANDS 4 % (0-2); LYMPHOCYTE 7 % (20-40); MONOCYTE 10 % (0-10); NEUTROPHIL 79 % (50-75); TOTAL CELLS COUNTED 100
[2019-01-11 07:56] LABS: BURR CELLS SLIGHT; OVALOCYTES SLIGHT; PLATELET ESTIMATE NORMAL (NORMAL); POIKILOCYTOSIS SLIGHT
[2019-01-11] MEDS: MethylPREDNISolone 40 mg Vial IVP SCH (10:58)
--- NOTE | 2019-01-11 15:32 | CARD ---
APPROVED REPORT Date of service: 01/08/2019 EKG Measurement Heart [id number] <Conclusion> Sinus tachycardia Rightward axis Incomplete right bundle branch block Septal infarct, age undetermined ST & T wave abnormality, consider inferior ischemia Abnormal ECG
--- NOTE | 2019-01-11 19:29 | CP.PCM.PN ---
Subjective - Date & Time of Evaluation Date of Evaluation: 01/11/19 Time of Evaluation: 19:28 - Subjective Subjective: Patient is morning mostly lying down. He did not do any physical therapy today. Currently on heparin drip. Family decided not for angiogram today. Patient complaining of not moving at all that he wants to move. He wants to get up and walk. He denies any chest pain. No shortness of breath, coughing well. But exertional dyspnea noted. On examination: Lung is clear. But exertional dyspnea noted. Heart sounds are regular. Nontender abdomen. No pedal edema. We will continue the current treatment. Diuretics. We will repeat x-ray labs and physical therapy and possible out of bed to chair in the morning Objective - Vital Signs/Intake and Output Vital Signs (last 24 hours): Temp Pulse Resp BP Pulse Ox 98.4 F 74 14 156/91 H 99 01/11/19 16:00 01/11/19 18:00 01/11/19 18:00 01/11/19 18:00 01/11/19 18:00 Intake and Output: 01/11/19 01/12/19 18:59 06:59 Intake Total 919.6 Output Total 2450 Balance -1530.4 - Medications Medications: Current Medications Albuterol Sulfate (Albuterol 0.083% Inhal Ree (2.5 Mg/3 Ml) Ud) 2.5 mg IH RQ4 [facility] Last Admin: 01/11/19 16:20 Dose: 2.5 mg Aspirin (Ecotrin) 81 mg PO DAILY [facility] Last Admin: 01/11/19 10:59 Dose: 81 mg Docusate Sodium (Colace) 100 mg PO BID [facility] Last Admin: 01/11/19 17:11 Dose: 100 mg Famotidine (Pepcid) 20 mg IVP DAILY [facility] Last Admin: 01/11/19 10:59 Dose: 20 mg Piperacillin Sod/Tazobactam (Sod 3.375 gm/ Sodium Chloride) 100 mls @ 200 mls/hr IVPB Q8H [facility]; Protocol Last Admin: 01/11/19 18:08 Dose: 200 mls/hr Dexmedetomidine HCl 200 mcg/ (Sodium Chloride) 50 mls @ 4.54 mls/hr IV TITR PRN; Protocol PRN Reason: Agitation Last Titration: 01/10/19 11:03 Dose: 0 mcg/kg/hr, 0 mls/hr Heparin Sodium/Sodium Chloride (Heparin 84076 Units/250ml 1/2 Normal Saline) 25,000 units in 250 mls @ 8.28 mls/hr IV .Q24H PRN; Protocol PRN Reason: ADJUST RATE PER PROTOCOL Last Titration: 01/11/19 02:56 Dose: 9 units/kg/hr, 8.28 mls/hr Insulin Aspart (Novolog) 0 unit SC ACHS [facility]; Protocol Last Admin: 01/11/19 17:11 Dose: 4 u Methylprednisolone (Solu-Medrol) 20 mg IVP DAILY [facility] Last Admin: 01/11/19 10:58 Dose: 20 mg Metoprolol Tartrate (Lopressor) 50 mg PO BID [facility] Last Admin: 01/11/19 17:11 Dose: 50 mg Rosuvastatin Calcium (Crestor) 10 mg PO HS [facility] Last Admin: 01/10/19 22:10 Dose: 10 mg Sitagliptin Phosphate (Januvia) 50 mg PO DAILY [facility] Last Admin: 01/11/19 10:59 Dose: 50 mg - Labs Labs: 01/11/19 06:23 01/11/19 06:23 PT 12.0 SECONDS (9.7-12.2) 01/10/19 03:02 INR 1.1 01/10/19 03:02 APTT 63 SECONDS (21-34) H D 01/11/19 15:15
--- NOTE | 2019-01-11 23:39 | CP.PCM.PN ---
Subjective - Date & Time of Evaluation Date of Evaluation: 01/10/19 Time of Evaluation: 18:20 - Subjective Subjective: Patient seen and evaluated Extubated Trops trending down Review of Systems - Constitutional Constitutional: Weakness - EENT Nose/Mouth/Throat: Nasal Congestion - Cardiovascular Cardiovascular: Dyspnea, Dyspnea on Exertion, Edema, Leg Edema, Pedal Edema - Respiratory Respiratory: Dyspnea, Dyspnea on Exertion, Wheezing - Gastrointestinal Gastrointestinal: As Per HPI - Genitourinary Genitourinary: As Per HPI Physical Exam - Constitutional Appears: Intubated - Eye Exam Eye Exam: Normal appearance - ENT Exam ENT Exam: Normal Exam - Neck Exam Neck exam: Positive for: Full Rom - Respiratory Exam Respiratory Exam: Rhonchi, Wheezes - Cardiovascular Exam Cardiovascular Exam: REGULAR RHYTHM, +S1, +S2 - GI/Abdominal Exam GI & Abdominal Exam: Normal Bowel Sounds, Soft - Rectal Exam Rectal Exam: Deferred - Extremities Exam Extremities exam: Positive for: normal inspection, pedal edema - Neurological Exam Neurological exam: Intubated - Psychiatric Exam Psychiatric exam: Normal Affect, Normal Mood - Skin Skin Exam: Dry, Intact, Normal Color, Warm Assessment & Plan (1) SOB (shortness of breath) Assessment and Plan: Exacerbation of COPD/Bronchitis Status: Acute Priority: High (2) CAD (coronary artery disease) Assessment and Plan: History of CAD S/P CABG. Trops trending down Status: Chronic Priority: High (3) Type 2 diabetes mellitus Assessment and Plan: Will put on Accucheck and hypoglycemic agents. Will put patient back on Tresiba. Status: Chronic Priority: High (4) Hypertension Assessment and Plan: not well-controlled at this time. Will adjust meds for now Status: Chronic Priority: High (5) Hyperlipidemia associated with type 2 diabetes mellitus Status: Chronic Priority: Medium Will discuss with the family regarding cath Objective - Vital Signs/Intake and Output Vital Signs (last 24 hours): Temp Pulse Resp BP Pulse Ox 98.3 F 61 17 173/84 H 100 01/11/19 20:00 01/11/19 21:01 01/11/19 21:01 01/11/19 22:30 01/11/19 21:01 Intake and Output: 01/11/19 01/12/19 18:59 06:59 Intake Total 919.6 24.9 Output Total 2450 Balance -1530.4 24.9 - Medications Medications: Current Medications Albuterol Sulfate (Albuterol 0.083% Inhal Ree (2.5 Mg/3 Ml) Ud) 2.5 mg IH RQ4 [facility] Last Admin: 01/11/19 16:20 Dose: 2.5 mg Aspirin (Ecotrin) 81 mg PO DAILY [facility] Last Admin: 01/11/19 10:59 Dose: 81 mg Docusate Sodium (Colace) 100 mg PO BID [facility] Last Admin: 01/11/19 17:11 Dose: 100 mg Famotidine (Pepcid) 20 mg PO DAILY [facility] Furosemide (Lasix) 20 mg IVP Q12 [facility] Last Admin: 01/11/19 22:30 Dose: 20 mg Piperacillin Sod/Tazobactam (Sod 3.375 gm/ Sodium Chloride) 100 mls @ 200 mls/hr IVPB Q8H [facility]; Protocol Last Admin: 01/11/19 18:08 Dose: 200 mls/hr Heparin Sodium/Sodium Chloride (Heparin 71060 Units/250ml 1/2 Normal Saline) 25,000 units in 250 mls @ 8.28 mls/hr IV .Q24H PRN; Protocol PRN Reason: ADJUST RATE PER PROTOCOL Last Titration: 01/11/19 02:56 Dose: 9 units/kg/hr, 8.28 mls/hr Insulin Aspart (Novolog) 0 unit SC ACHS [facility]; Protocol Last Admin: 01/11/19 22:29 Dose: Not Given Losartan Potassium (Cozaar) 50 mg PO Q12 [facility] Last Admin: 01/11/19 22:30 Dose: 50 mg Metoprolol Tartrate (Lopressor) 50 mg PO BID [facility] Last Admin: 01/11/19 17:11 Dose: 50 mg Rosuvastatin Calcium (Crestor) 10 mg PO HS [facility] Last Admin: 01/11/19 22:30 Dose: 10 mg Sitagliptin Phosphate (Januvia) 50 mg PO DAILY [facility] Last Admin: 01/11/19 10:59 Dose: 50 mg - Labs Labs: 01/11/19 06:23 01/11/19 06:23 PT 12.0 SECONDS (9.7-12.2) 01/10/19 03:02 INR 1.1 01/10/19 03:02 APTT 63 SECONDS (21-34) H D 01/11/19 15:15
--- NOTE | 2019-01-11 23:40 | CP.PCM.PN ---
Subjective - Date & Time of Evaluation Date of Evaluation: 01/11/19 Time of Evaluation: 09:20 - Subjective Subjective: Patient seen and evaluated Patient not in disterss Family at bed side (Daughter and Son-in-Law) Review of Systems - Constitutional Constitutional: Weakness - EENT Nose/Mouth/Throat: Nasal Congestion - Cardiovascular Cardiovascular: Dyspnea, Dyspnea on Exertion, Edema, Leg Edema, Pedal Edema - Respiratory Respiratory: Dyspnea, Dyspnea on Exertion, Wheezing - Gastrointestinal Gastrointestinal: As Per HPI - Genitourinary Genitourinary: As Per HPI Physical Exam - Constitutional Appears: Intubated - Eye Exam Eye Exam: Normal appearance - ENT Exam ENT Exam: Normal Exam - Neck Exam Neck exam: Positive for: Full Rom - Respiratory Exam Respiratory Exam: Rhonchi, Wheezes - Cardiovascular Exam Cardiovascular Exam: REGULAR RHYTHM, +S1, +S2 - GI/Abdominal Exam GI & Abdominal Exam: Normal Bowel Sounds, Soft - Rectal Exam Rectal Exam: Deferred - Extremities Exam Extremities exam: Positive for: normal inspection, pedal edema - Neurological Exam Neurological exam: Intubated - Psychiatric Exam Psychiatric exam: Normal Affect, Normal Mood - Skin Skin Exam: Dry, Intact, Normal Color, Warm Objective - Vital Signs/Intake and Output Vital Signs (last 24 hours): Temp Pulse Resp BP Pulse Ox 98.3 F 61 17 173/84 H 100 01/11/19 20:00 01/11/19 21:01 01/11/19 21:01 01/11/19 22:30 01/11/19 21:01 Intake and Output: 01/11/19 01/12/19 18:59 06:59 Intake Total 919.6 24.9 Output Total 2450 Balance -1530.4 24.9 - Medications Medications: Current Medications Albuterol Sulfate (Albuterol 0.083% Inhal Ree (2.5 Mg/3 Ml) Ud) 2.5 mg IH RQ4 [facility] Last Admin: 01/11/19 16:20 Dose: 2.5 mg Aspirin (Ecotrin) 81 mg PO DAILY [facility] Last Admin: 01/11/19 10:59 Dose: 81 mg Docusate Sodium (Colace) 100 mg PO BID [facility] Last Admin: 01/11/19 17:11 Dose: 100 mg Famotidine (Pepcid) 20 mg PO DAILY [facility] Furosemide (Lasix) 20 mg IVP Q12 [facility] Last Admin: 01/11/19 22:30 Dose: 20 mg Piperacillin Sod/Tazobactam (Sod 3.375 gm/ Sodium Chloride) 100 mls @ 200 mls/hr IVPB Q8H [facility]; Protocol Last Admin: 01/11/19 18:08 Dose: 200 mls/hr Heparin Sodium/Sodium Chloride (Heparin 80723 Units/250ml 1/2 Normal Saline) 25,000 units in 250 mls @ 8.28 mls/hr IV .Q24H PRN; Protocol PRN Reason: ADJUST RATE PER PROTOCOL Last Titration: 01/11/19 02:56 Dose: 9 units/kg/hr, 8.28 mls/hr Insulin Aspart (Novolog) 0 unit SC ACHS [facility]; Protocol Last Admin: 01/11/19 22:29 Dose: Not Given Losartan Potassium (Cozaar) 50 mg PO Q12 [facility] Last Admin: 01/11/19 22:30 Dose: 50 mg Metoprolol Tartrate (Lopressor) 50 mg PO BID [facility] Last Admin: 01/11/19 17:11 Dose: 50 mg Rosuvastatin Calcium (Crestor) 10 mg PO HS [facility] Last Admin: 01/11/19 22:30 Dose: 10 mg Sitagliptin Phosphate (Januvia) 50 mg PO DAILY [facility] Last Admin: 01/11/19 10:59 Dose: 50 mg - Labs Labs: 01/11/19 06:23 01/11/19 06:23 PT 12.0 SECONDS (9.7-12.2) 01/10/19 03:02 INR 1.1 01/10/19 03:02 APTT 63 SECONDS (21-34) H D 01/11/19 15:15 Assessment and Plan - Assessment and Plan (Free Text) Assessment: Assessment & Plan (1) SOB (shortness of breath) Assessment and Plan: Exacerbation of COPD/Bronchitis Status: Acute Priority: High (2) CAD (coronary artery disease) Assessment and Plan: History of CAD S/P CABG. Trops trending down Status: Chronic Priority: High (3) Type 2 diabetes mellitus Assessment and Plan: Will put on Accucheck and hypoglycemic agents. Will put patient back on Tresiba. Status: Chronic Priority: High (4) Hypertension Assessment and Plan: not well-controlled at this time. Will adjust meds for now Status: Chronic Priority: High (5) Hyperlipidemia associated with type 2 diabetes mellitus Status: Chronic Priority: Medium Discussed with the family regarding cath family prefers conservative mgt
[2019-01-12] MEDS: Albuterol 0.083% Inhal Sol (2.5 mg/3 mL) UD IH SCH ×6 (00:32→19:00)
[2019-01-12] MEDS: Piperacillin/Tazobact 3.375 GM in Sodium Chloride 100 ML IVPB SCH ×3 (03:42→18:07)
[2019-01-12 07:03] LABS: BASO % 0.2 % (0.0-2.0); EOS # 0.2 K/uL (0.0-0.7); EOS % 2.3 % (0.0-4.0); HEMOGLOBIN 13.5 g/dL (12.0-18.0); LYMPH # 1.6 K/uL (1.0-4.3); LYMPH % 14.7 % (20.0-40.0); MEAN CELL VOLUME 91.9 fL (80.0-94.0); MEAN CORPUSCULAR HEMOGLOBIN 30.3 pg (27.0-31.0); MEAN PLATELET VOLUME 7.5 fL (7.2-11.7); MONO # 1.2 K/uL (0.0-0.8); MONO % 10.8 % (0.0-10.0); NEUT # 7.7 K/uL (1.8-7.0); RBC 4.44 Mil/uL (4.40-5.90); RED CELL DISTRIBUTION WIDTH 13.9 % (11.5-14.5); WHITE BLOOD COUNT 10.8 K/uL (4.8-10.8)
[2019-01-12 07:14] LABS: INR 1.1; PROTHROMBIN TIME 12.5 SECONDS (9.7-12.2)
[2019-01-12 07:28] LABS: ALB/GLOB RATIO 1.2 (1.0-2.1); ALBUMIN 3.3 g/dL (3.5-5.0); CALCIUM 8.6 mg/dl (8.6-10.4)
--- NOTE | 2019-01-12 07:54 | RAD ---
Chest x-ray single frontal view HISTORY: Pneumonia. COMPARISON: 01/10/2019 FINDINGS: Mild venous congestion. Confluent increased markings at the left lung base with question small left pleural effusion. This would be better evaluated with lateral view. Status post median sternotomy and CABG. Cardiomegaly. Atherosclerotic calcification at the aortic knob. Degenerative changes in the spine and shoulders. Impression: Mild venous congestion. Confluent increased markings at the left lung base with question small left pleural effusion. This would be better evaluated with lateral view. Status post median sternotomy and CABG. Cardiomegaly.
[2019-01-12] MEDS: (Novolog) Insulin Aspart, Recombinant 100 u/ml 10 ml vial SC SCH ×4 (08:13→21:23)
--- NOTE | 2019-01-12 13:45 | CP.PCM.PN ---
<Renuka Saenz - Last Filed: 01/12/19 16:43> Subjective - Date & Time of Evaluation Date of Evaluation: 01/12/19 Time of Evaluation: 13:34 - Subjective Subjective: Progress note for Dr. Ludwig Patient was seen and examined at bedside in no acute distress. Patient reports feeling well and has no complaints- denies chest pain, palpitations, dyspnea, leg pain and swelling. Objective - Vital Signs/Intake and Output Vital Signs (last 24 hours): Temp Pulse Resp BP Pulse Ox 98.2 F 68 11 L 122/63 99 01/12/19 08:00 01/12/19 11:52 01/12/19 08:00 01/12/19 10:35 01/12/19 08:00 Intake and Output: 01/12/19 01/12/19 06:59 18:59 Intake Total 99.6 256.6 Output Total 2000 Balance -1900.4 256.6 - Medications Medications: Current Medications Albuterol Sulfate (Albuterol 0.083% Inhal Ree (2.5 Mg/3 Ml) Ud) 2.5 mg IH RQ4 [facility] Last Admin: 01/12/19 09:00 Dose: 2.5 mg Aspirin (Ecotrin) 81 mg PO DAILY [facility] Last Admin: 01/12/19 10:14 Dose: 81 mg Clopidogrel Bisulfate (Plavix) 75 mg PO DAILY [facility] Docusate Sodium (Colace) 100 mg PO BID [facility] Last Admin: 01/12/19 10:20 Dose: 100 mg Famotidine (Pepcid) 20 mg PO DAILY [facility] Last Admin: 01/12/19 10:17 Dose: 20 mg Furosemide (Lasix) 20 mg IVP Q12 [facility] Last Admin: 01/12/19 10:35 Dose: 20 mg Heparin Sodium (Porcine) (Heparin) 5,000 units SC Q8 [facility] Piperacillin Sod/Tazobactam (Sod 3.375 gm/ Sodium Chloride) 100 mls @ 200 mls/hr IVPB Q8H [facility]; Protocol Last Admin: 01/12/19 12:48 Dose: 200 mls/hr Insulin Aspart (Novolog) 0 unit SC ACHS [facility]; Protocol Last Admin: 01/12/19 12:48 Dose: 4 u Losartan Potassium (Cozaar) 50 mg PO Q12 [facility] Last Admin: 01/12/19 10:20 Dose: 50 mg Metoprolol Tartrate (Lopressor) 50 mg PO BID [facility] Last Admin: 01/12/19 10:15 Dose: 50 mg Rosuvastatin Calcium (Crestor) 10 mg PO HS [facility] Last Admin: 01/11/19 22:30 Dose: 10 mg Sitagliptin Phosphate (Januvia) 50 mg PO DAILY [facility] Last Admin: 01/12/19 10:24 Dose: 50 mg - Labs Labs: 01/12/19 07:00 01/12/19 07:00 PT 12.5 SECONDS (9.7-12.2) H 01/12/19 07:00 INR 1.1 01/12/19 07:00 APTT 77 SECONDS (21-34) H D 01/12/19 07:00 - Constitutional Appears: No Acute Distress - Head Exam Head Exam: ATRAUMATIC, NORMAL INSPECTION - Eye Exam Eye Exam: EOMI, Normal appearance - ENT Exam ENT Exam: Mucous Membranes Moist - Respiratory Exam Respiratory Exam: NORMAL BREATHING PATTERN. absent: Rales, Rhonchi, Wheezes, Respiratory Distress - Cardiovascular Exam Cardiovascular Exam: REGULAR RHYTHM, +S1, +S2 - GI/Abdominal Exam GI & Abdominal Exam: Soft. absent: Distended - Extremities Exam Extremities Exam: absent: Pedal Edema, Tenderness - Neurological Exam Neurological Exam: Alert, Awake, Oriented x3 - Psychiatric Exam Psychiatric exam: Normal Affect, Normal Mood - Skin Skin Exam: Dry, Normal Color, Warm Assessment and Plan - Assessment and Plan (Free Text) Plan: 78 year old male with a history of CAD, CABG, DM, HTN, who presented with shortness of breath, respiratory failure. Cardiology consulted for CAD. Elevated Troponins Likely [place] Troponins are trending down No cardiac cath at this time, will continue medical management. Discontinued Heparin Drip on 01/12/19. Started Plavix 75mg PO daily and Heparin 5000u SC Q8 for DVT prophylaxis. Medical management: Asa 81mg po daily, Losartan 50mg PO Q12, Metoprolol 50mg PO BID, Plavix 75mg PO daily, Crestor 10mg PO HS. CAD Continue medical management. No cath at this time. Continue Asa 81mg po daily, Losartan 50mg PO Q12, Metoprolol 50mg PO BID, Plavix 75mg PO daily, Crestor 10mg PO HS Encouraged PT and ambulation. Case discussed with Dr. Ludwig, Renuka Hernandez, PGY2 <Eduin Ludwig - Last Filed: 01/12/19 23:28> Objective - Vital Signs/Intake and Output Vital Signs (last 24 hours): Temp Pulse Resp BP Pulse Ox 97.6 F 66 18 155/79 H 96 01/12/19 15:00 01/12/19 20:14 01/12/19 15:00 01/12/19 21:27 01/12/19 15:00 Intake and Output: 01/12/19 01/13/19 18:59 06:59 Intake Total 256.6 400 Balance 256.6 400 - Medications Medications: Current Medications Albuterol Sulfate (Albuterol 0.083% Inhal Ree (2.5 Mg/3 Ml) Ud) 2.5 mg IH RQ4 [facility] Last Admin: 01/12/19 19:00 Dose: 2.5 mg Aspirin (Ecotrin) 81 mg PO DAILY [facility] Last Admin: 01/12/19 10:14 Dose: 81 mg Clopidogrel Bisulfate (Plavix) 75 mg PO DAILY [facility] Docusate Sodium (Colace) 100 mg PO BID [facility] Last Admin: 01/12/19 17:24 Dose: 100 mg Famotidine (Pepcid) 20 mg PO DAILY [facility] Last Admin: 01/12/19 10:17 Dose: 20 mg Furosemide (Lasix) 20 mg IVP Q12 [facility] Last Admin: 01/12/19 21:27 Dose: 20 mg Heparin Sodium (Porcine) (Heparin) 5,000 units SC Q8 [facility] Last Admin: 01/12/19 21:27 Dose: 5,000 units Piperacillin Sod/Tazobactam (Sod 3.375 gm/ Sodium Chloride) 100 mls @ 200 mls/hr IVPB Q8H [facility]; Protocol Last Admin: 01/12/19 18:07 Dose: 200 mls/hr Insulin Aspart (Novolog) 0 unit SC ACHS [facility]; Protocol Last Admin: 01/12/19 21:23 Dose: Not Given Losartan Potassium (Cozaar) 50 mg PO Q12 [facility] Last Admin: 01/12/19 21:27 Dose: 50 mg Metoprolol Tartrate (Lopressor) 50 mg PO BID [facility] Last Admin: 01/12/19 17:24 Dose: 50 mg Rosuvastatin Calcium (Crestor) 10 mg PO HS [facility] Last Admin: 01/12/19 21:27 Dose: 10 mg Sitagliptin Phosphate (Januvia) 50 mg PO DAILY [facility] Last Admin: 01/12/19 10:24 Dose: 50 mg - Labs Labs: 01/12/19 07:00 01/12/19 07:00 PT 12.5 SECONDS (9.7-12.2) H 01/12/19 07:00 INR 1.1 01/12/19 07:00 APTT 77 SECONDS (21-34) H D 01/12/19 07:00 Assessment and Plan - Assessment and Plan (Free Text) Plan: Patient seen and evaluated personally by me. Plan of care d/w the medical interpreter and as documented.
[2019-01-13] MEDS: Albuterol 0.083% Inhal Sol (2.5 mg/3 mL) UD IH SCH ×6 (00:35→19:25)
[2019-01-13] MEDS: Piperacillin/Tazobact 3.375 GM in Sodium Chloride 100 ML IVPB SCH ×2 (02:53→11:59)
[2019-01-13] MEDS: (Novolog) Insulin Aspart, Recombinant 100 u/ml 10 ml vial SC SCH ×4 (08:43→21:25)
--- NOTE | 2019-01-13 09:13 | CP.PCM.PN ---
<Renuka Saenz - Last Filed: 01/13/19 16:42> Subjective - Date & Time of Evaluation Date of Evaluation: 01/13/19 Time of Evaluation: 09:13 - Subjective Subjective: Progress note for Dr. Ludwig Patient was seen and examined at bedside in no acute distress. Patient has no complaints and feels well. He is oob to chair. He denies chest pain, palpitations, dyspnea, abdominal pain, n/v, dizziness, leg pain, swelling. Objective - Vital Signs/Intake and Output Vital Signs (last 24 hours): Temp Pulse Resp BP Pulse Ox 98 F 60 20 141/83 97 01/13/19 07:55 01/13/19 07:55 01/13/19 07:55 01/13/19 07:55 01/13/19 07:55 Intake and Output: 01/13/19 01/13/19 06:59 18:59 Intake Total 400 Balance 400 - Medications Medications: Current Medications Albuterol Sulfate (Albuterol 0.083% Inhal Ree (2.5 Mg/3 Ml) Ud) 2.5 mg IH RQ4 [facility] Last Admin: 01/13/19 08:02 Dose: 2.5 mg Aspirin (Ecotrin) 81 mg PO DAILY [facility] Last Admin: 01/12/19 10:14 Dose: 81 mg Clopidogrel Bisulfate (Plavix) 75 mg PO DAILY [facility] Docusate Sodium (Colace) 100 mg PO BID [facility] Last Admin: 01/12/19 17:24 Dose: 100 mg Famotidine (Pepcid) 20 mg PO DAILY [facility] Last Admin: 01/12/19 10:17 Dose: 20 mg Furosemide (Lasix) 20 mg IVP Q12 [facility] Last Admin: 01/12/19 21:27 Dose: 20 mg Heparin Sodium (Porcine) (Heparin) 5,000 units SC Q8 [facility] Last Admin: 01/13/19 06:12 Dose: 5,000 units Piperacillin Sod/Tazobactam (Sod 3.375 gm/ Sodium Chloride) 100 mls @ 200 mls/hr IVPB Q8H [facility]; Protocol Last Admin: 01/13/19 02:53 Dose: 200 mls/hr Insulin Aspart (Novolog) 0 unit SC ACHS [facility]; Protocol Last Admin: 01/13/19 08:43 Dose: 1 units Losartan Potassium (Cozaar) 50 mg PO Q12 [facility] Last Admin: 01/12/19 21:27 Dose: 50 mg Metoprolol Tartrate (Lopressor) 50 mg PO BID [facility] Last Admin: 01/12/19 17:24 Dose: 50 mg Rosuvastatin Calcium (Crestor) 10 mg PO HS [facility] Last Admin: 01/12/19 21:27 Dose: 10 mg Sitagliptin Phosphate (Januvia) 50 mg PO DAILY [facility] Last Admin: 01/12/19 10:24 Dose: 50 mg - Labs Labs: 01/12/19 07:00 01/12/19 07:00 PT 12.5 SECONDS (9.7-12.2) H 01/12/19 07:00 INR 1.1 01/12/19 07:00 APTT 77 SECONDS (21-34) H D 01/12/19 07:00 - Additional Findings Additional findings: - Constitutional Appears: No Acute Distress - Head Exam Head Exam: ATRAUMATIC, NORMAL INSPECTION - Eye Exam Eye Exam: EOMI, Normal appearance - ENT Exam ENT Exam: Mucous Membranes Moist - Respiratory Exam Respiratory Exam: NORMAL BREATHING PATTERN. absent: Rales, Rhonchi, Wheezes, Respiratory Distress - Cardiovascular Exam Cardiovascular Exam: REGULAR RHYTHM, +S1, +S2 - GI/Abdominal Exam GI & Abdominal Exam: Soft. absent: Distended - Extremities Exam Extremities Exam: absent: Pedal Edema, Tenderness - Neurological Exam Neurological Exam: Alert, Awake, Oriented x3 - Psychiatric Exam Psychiatric exam: Normal Affect, Normal Mood - Skin Skin Exam: Dry, Normal Color, Warm Assessment and Plan - Assessment and Plan (Free Text) Plan: 78 year old male with a history of CAD, CABG, DM, HTN, who presented with shortness of breath, respiratory failure. Cardiology consulted for CAD. Elevated Troponins Likely [place] Troponins are trending down No cardiac cath at this time, will continue medical management. Discontinued Heparin Drip on 01/12/19. Started Plavix 75mg PO daily and Heparin 5000u SC Q8 for DVT prophylaxis. Medical management: Asa 81mg po daily, Losartan 50mg PO Q12, Metoprolol 50mg PO BID, Plavix 75mg PO daily, Crestor 10mg PO HS. CAD Continue medical management. No cath at this time. Continue Asa 81mg po daily, Losartan 50mg PO Q12, Metoprolol 50mg PO BID, Plavix 75mg PO daily, Crestor 10mg PO HS Encouraged PT and ambulation. Case discussed with Renuka Cooley, PGY2 <Eduin Ludwig - Last Filed: 01/13/19 20:14> Objective - Vital Signs/Intake and Output Vital Signs (last 24 hours): Temp Pulse Resp BP Pulse Ox 97.8 F 70 18 119/65 100 01/13/19 15:00 01/13/19 16:59 01/13/19 15:00 01/13/19 15:00 01/13/19 15:00 Intake and Output: 01/13/19 01/14/19 18:59 06:59 Intake Total 580 Balance 580 - Medications Medications: Current Medications Albuterol Sulfate (Albuterol 0.083% Inhal Ree (2.5 Mg/3 Ml) Ud) 2.5 mg IH RQ4 [facility] Last Admin: 01/13/19 19:25 Dose: 2.5 mg Aspirin (Ecotrin) 81 mg PO DAILY [facility] Last Admin: 01/13/19 10:22 Dose: 81 mg Clopidogrel Bisulfate (Plavix) 75 mg PO DAILY [facility] Last Admin: 01/13/19 10:22 Dose: 75 mg Docusate Sodium (Colace) 100 mg PO BID [facility] Last Admin: 01/13/19 17:53 Dose: 100 mg Famotidine (Pepcid) 20 mg PO DAILY [facility] Last Admin: 01/13/19 10:22 Dose: 20 mg Furosemide (Lasix) 20 mg IVP Q12 [facility] Last Admin: 01/13/19 10:23 Dose: 20 mg Heparin Sodium (Porcine) (Heparin) 5,000 units SC Q8 [facility] Last Admin: 01/13/19 13:58 Dose: 5,000 units Insulin Aspart (Novolog) 0 unit SC ACHS [facility]; Protocol Last Admin: 01/13/19 17:53 Dose: 2 units Losartan Potassium (Cozaar) 50 mg PO Q12 [facility] Last Admin: 01/13/19 10:24 Dose: 50 mg Metoprolol Tartrate (Lopressor) 50 mg PO BID [facility] Last Admin: 01/13/19 17:53 Dose: 50 mg Rosuvastatin Calcium (Crestor) 10 mg PO HS [facility] Last Admin: 01/12/19 21:27 Dose: 10 mg Sitagliptin Phosphate (Januvia) 50 mg PO DAILY [facility] Last Admin: 01/13/19 10:22 Dose: 50 mg - Labs Labs: 01/12/19 07:00 01/12/19 07:00 PT 12.5 SECONDS (9.7-12.2) H 01/12/19 07:00 INR 1.1 01/12/19 07:00 APTT 77 SECONDS (21-34) H D 01/12/19 07:00 Assessment and Plan - Assessment and Plan (Free Text) Plan: Patient seen and evaluated personally by me. Plan of care d/w the medical resi dent and as documented
--- NOTE | 2019-01-13 22:36 | CP.PCM.PN ---
Subjective - Date & Time of Evaluation Date of Evaluation: 01/12/19 Time of Evaluation: 22:34 - Subjective Subjective: Patient was transferred from the ICU to the floor. Now he has a less confusion than yesterday. Family is at bedside. Patient denies any chest pain, but there is a definite exertional dyspnea noted, minimal expiratory wheezing also noted. Vital signs are stable. Chest bilateral wheezing expiratory noted, regular heart sounds, nontender abdomen. Assessment and recommendation: 8 patient also had a history of [id number] male with a history of heart disease, history of coronary artery bypass grafting in the past, hypertension a nd hypercholesterolemia and diabetes. Ischemic heart disease, and also non-ST elevation PA. Intubated with respiratory failure. Unclear source of respiratory insufficiency. Most likely CHF and CHF exacerbation. Continue the Lasix, continue the BiPAP, bronchodilator, will follow the patient. Objective - Vital Signs/Intake and Output Vital Signs (last 24 hours): Temp Pulse Resp BP Pulse Ox 97.8 F 70 18 119/65 100 01/13/19 15:00 01/13/19 16:59 01/13/19 15:00 01/13/19 15:00 01/13/19 15:00 Intake and Output: 01/13/19 01/14/19 18:59 06:59 Intake Total 580 Balance 580 - Medications Medications: Current Medications Aspirin (Ecotrin) 81 mg PO DAILY [facility] Last Admin: 01/13/19 10:22 Dose: 81 mg Clopidogrel Bisulfate (Plavix) 75 mg PO DAILY [facility] Last Admin: 01/13/19 10:22 Dose: 75 mg Docusate Sodium (Colace) 100 mg PO BID [facility] Last Admin: 01/13/19 17:53 Dose: 100 mg Famotidine (Pepcid) 20 mg PO DAILY [facility] Last Admin: 01/13/19 10:22 Dose: 20 mg Furosemide (Lasix) 40 mg PO DAILY [facility] Heparin Sodium (Porcine) (Heparin) 5,000 units SC Q8 [facility] Last Admin: 01/13/19 21:50 Dose: 5,000 units Insulin Aspart (Novolog) 0 unit SC ACHS [facility]; Protocol Last Admin: 01/13/19 21:25 Dose: Not Given Losartan Potassium (Cozaar) 50 mg PO Q12 [facility] Last Admin: 01/13/19 21:50 Dose: 50 mg Metoprolol Tartrate (Lopressor) 50 mg PO BID [facility] Last Admin: 01/13/19 17:53 Dose: 50 mg Rosuvastatin Calcium (Crestor) 10 mg PO HS [facility] Last Admin: 01/13/19 21:50 Dose: 10 mg Sitagliptin Phosphate (Januvia) 50 mg PO DAILY [facility] Last Admin: 01/13/19 10:22 Dose: 50 mg - Labs Labs: 01/12/19 07:00 01/12/19 07:00 PT 12.5 SECONDS (9.7-12.2) H 01/12/19 07:00 INR 1.1 01/12/19 07:00 APTT 77 SECONDS (21-34) H D 01/12/19 07:00
--- NOTE | 2019-01-13 22:37 | CP.PCM.PN ---
Subjective - Date & Time of Evaluation Date of Evaluation: 01/13/19 Time of Evaluation: 22:36 - Subjective Subjective: Patient today is much more comfortable than yesterday. He was only able to use the BiPAP 1 hour last night. Complaining of some minimal expiratory wheezing. Exertional dyspnea noted. But patient was able to walk with help of physical therapy today. He denies any nausea vomiting. Denies any chest pain. On examination: Vital signs are stable. Chest bilateral expiratory wheezing noted, regular HS noted. Pedal edema 1+ in the legs noted. Elevated blood glucose level noted still Assessment and recommendation: 78-year-old male with history of hypertension, hypercholesterolemia, diabetes. Admitted with a non-ST elevation, congestive heart failure, acute respiratory failure. Still having expiratory wheezing. Elevated proBNP level noted. Continue the Lasix. Bronchodilators. Labs tomorrow. Recommended physical therapy. We will follow the patient Objective - Vital Signs/Intake and Output Vital Signs (last 24 hours): Temp Pulse Resp BP Pulse Ox 97.8 F 70 18 119/65 100 01/13/19 15:00 01/13/19 16:59 01/13/19 15:00 01/13/19 15:00 01/13/19 15:00 Intake and Output: 01/13/19 01/14/19 18:59 06:59 Intake Total 580 Balance 580 - Medications Medications: Current Medications Aspirin (Ecotrin) 81 mg PO DAILY [facility] Last Admin: 01/13/19 10:22 Dose: 81 mg Clopidogrel Bisulfate (Plavix) 75 mg PO DAILY [facility] Last Admin: 01/13/19 10:22 Dose: 75 mg Docusate Sodium (Colace) 100 mg PO BID [facility] Last Admin: 01/13/19 17:53 Dose: 100 mg Famotidine (Pepcid) 20 mg PO DAILY [facility] Last Admin: 01/13/19 10:22 Dose: 20 mg Furosemide (Lasix) 40 mg PO DAILY [facility] Heparin Sodium (Porcine) (Heparin) 5,000 units SC Q8 [facility] Last Admin: 01/13/19 21:50 Dose: 5,000 units Insulin Aspart (Novolog) 0 unit SC ACHS [facility]; Protocol Last Admin: 01/13/19 21:25 Dose: Not Given Losartan Potassium (Cozaar) 50 mg PO Q12 [facility] Last Admin: 01/13/19 21:50 Dose: 50 mg Metoprolol Tartrate (Lopressor) 50 mg PO BID [facility] Last Admin: 01/13/19 17:53 Dose: 50 mg Rosuvastatin Calcium (Crestor) 10 mg PO HS [facility] Last Admin: 01/13/19 21:50 Dose: 10 mg Sitagliptin Phosphate (Januvia) 50 mg PO DAILY [facility] Last Admin: 01/13/19 10:22 Dose: 50 mg - Labs Labs: 01/12/19 07:00 01/12/19 07:00 PT 12.5 SECONDS (9.7-12.2) H 01/12/19 07:00 INR 1.1 01/12/19 07:00 APTT 77 SECONDS (21-34) H D 01/12/19 07:00
[2019-01-14 08:00] LABS: BASO % 0.4 % (0.0-2.0); EOS % 8.3 % (0.0-4.0); HEMOGLOBIN 14.2 g/dL (12.0-18.0); LYMPH # 1.5 K/uL (1.0-4.3); LYMPH % 12.4 % (20.0-40.0); MEAN CELL VOLUME 92.7 fL (80.0-94.0); MEAN CORPUSCULAR HEMOGLOBIN 30.4 pg (27.0-31.0); MEAN CORPUSCULAR HGB CONC 32.8 g/dL (33.0-37.0); MEAN PLATELET VOLUME 7.8 fL (7.2-11.7); MONO # 1.1 K/uL (0.0-0.8); MONO % 8.9 % (0.0-10.0); NEUT # 8.3 K/uL (1.8-7.0); RBC 4.67 Mil/uL (4.40-5.90); RED CELL DISTRIBUTION WIDTH 13.9 % (11.5-14.5); WHITE BLOOD COUNT 11.9 K/uL (4.8-10.8)
[2019-01-14 08:05] LABS: ALB/GLOB RATIO 1.4 (1.0-2.1); ALBUMIN 3.9 g/dL (3.5-5.0); CALCIUM 8.9 mg/dl (8.6-10.4)
[2019-01-14] MEDS: (Novolog) Insulin Aspart, Recombinant 100 u/ml 10 ml vial SC SCH ×4 (08:14→21:32)
--- NOTE | 2019-01-14 09:26 | RAD ---
Chest x-ray single frontal view HISTORY: Congestive heart failure. COMPARISON: 01/12/2019 Findings: No focal infiltrate or effusion. Atherosclerotic calcification at the aortic knob. Tortuous ectatic aorta. Mild cardiomegaly. Status post median sternotomy. Degenerative changes in the spine. Impression: No focal infiltrate or effusion. Atherosclerotic calcification at the aortic knob. Tortuous ectatic aorta. Mild cardiomegaly. Status post median sternotomy.
--- NOTE | 2019-01-14 13:17 | CP.PCM.PN ---
<Renuka Saenz - Last Filed: 01/14/19 16:00> Subjective - Date & Time of Evaluation Date of Evaluation: 01/14/19 Time of Evaluation: 13:16 - Subjective Subjective: Progress note for Dr. Ludwig Patient was seen and examined at bedside in no acute distress. Patient states he is feeling well today, is oob to chair. He worked with PT today without difficulty. He denies chest pain, palpitations, dyspnea, abdominal pain, n/v, dizziness, leg pain, swelling. Objective - Vital Signs/Intake and Output Vital Signs (last 24 hours): Temp Pulse Resp BP Pulse Ox 98.9 F 59 L 20 120/74 99 01/14/19 08:17 01/14/19 08:17 01/14/19 08:17 01/14/19 10:22 01/14/19 08:17 Intake and Output: 01/14/19 01/14/19 06:59 18:59 Intake Total 600 Balance 600 - Medications Medications: Current Medications Aspirin (Ecotrin) 81 mg PO DAILY [facility] Last Admin: 01/14/19 10:22 Dose: 81 mg Clopidogrel Bisulfate (Plavix) 75 mg PO DAILY [facility] Last Admin: 01/14/19 10:23 Dose: 75 mg Docusate Sodium (Colace) 100 mg PO BID [facility] Last Admin: 01/14/19 10:23 Dose: 100 mg Famotidine (Pepcid) 20 mg PO DAILY [facility] Last Admin: 01/14/19 10:23 Dose: 20 mg Furosemide (Lasix) 40 mg PO DAILY [facility] Last Admin: 01/14/19 10:22 Dose: 40 mg Heparin Sodium (Porcine) (Heparin) 5,000 units SC Q8 [facility] Last Admin: 01/14/19 06:16 Dose: 5,000 units Insulin Aspart (Novolog) 0 unit SC ACHS [facility]; Protocol Last Admin: 01/14/19 11:27 Dose: 3 units Losartan Potassium (Cozaar) 50 mg PO Q12 [facility] Last Admin: 01/14/19 10:23 Dose: 50 mg Metoprolol Tartrate (Lopressor) 50 mg PO BID [facility] Last Admin: 01/14/19 10:22 Dose: 50 mg Rosuvastatin Calcium (Crestor) 10 mg PO HS [facility] Last Admin: 01/13/19 21:50 Dose: 10 mg Sitagliptin Phosphate (Januvia) 50 mg PO DAILY [facility] Last Admin: 01/14/19 10:23 Dose: 50 mg - Labs Labs: 01/14/19 07:46 01/14/19 07:46 PT 12.5 SECONDS (9.7-12.2) H 01/12/19 07:00 INR 1.1 01/12/19 07:00 APTT 77 SECONDS (21-34) H D 01/12/19 07:00 - Additional Findings Additional findings: - Constitutional Appears: No Acute Distress - Head Exam Head Exam: ATRAUMATIC, NORMAL INSPECTION - Eye Exam Eye Exam: EOMI, Normal appearance - ENT Exam ENT Exam: Mucous Membranes Moist - Respiratory Exam Respiratory Exam: NORMAL BREATHING PATTERN. absent: Rales, Rhonchi, Wheezes, Respiratory Distress - Cardiovascular Exam Cardiovascular Exam: REGULAR RHYTHM, +S1, +S2 - GI/Abdominal Exam GI & Abdominal Exam: Soft. absent: Distended - Extremities Exam Extremities Exam: absent: Pedal Edema, Tenderness - Neurological Exam Neurological Exam: Alert, Awake, Oriented x3 - Psychiatric Exam Psychiatric exam: Normal Affect, Normal Mood - Skin Skin Exam: Dry, Normal Color, Warm Assessment and Plan - Assessment and Plan (Free Text) Plan: 78 year old male with a history of CAD, CABG, DM, HTN, who presented with shor tness of breath, respiratory failure. Cardiology consulted for CAD. Elevated Troponins Likely [place] Troponins are trending down No cardiac cath at this time, will continue medical management. Discontinued Heparin Drip on 01/12/19. Started Plavix 75mg PO daily and Heparin 5000u SC Q8 for DVT prophylaxis. Medical management: Asa 81mg po daily, Losartan 50mg PO Q12, Metoprolol 50mg PO BID, Plavix 75mg PO daily, Crestor 10mg PO HS. CAD Continue medical management. No cath at this time. Continue Asa 81mg po daily, Losartan 50mg PO Q12, Metoprolol 50mg PO BID, Plavix 75mg PO daily, Crestor 10mg PO HS Encouraged PT and ambulation. Case discussed with Renuka Cooley, PGY2 <Eduin Ludwig - Last Filed: 01/14/19 23:19> Objective - Vital Signs/Intake and Output Vital Signs (last 24 hours): Temp Pulse Resp BP Pulse Ox 97.9 F 73 18 114/67 98 01/14/19 15:00 01/14/19 21:00 01/14/19 15:00 01/14/19 21:00 01/14/19 15:00 Intake and Output: 01/14/19 01/15/19 18:59 06:59 Intake Total 500 400 Balance 500 400 - Medications Medications: Current Medications Albuterol/Ipratropium (Duoneb 3 Mg/0.5 Mg (3 Ml) Ud) 3 ml INH RQ6 PRN PRN Reason: WHEEZING Arformoterol Tartrate (Brovana) 15 mcg INH RQ12 [facility] Aspirin (Ecotrin) 81 mg PO DAILY [facility] Last Admin: 01/14/19 10:22 Dose: 81 mg Budesonide (Pulmicort Respules) 0.5 mg INH RQ12 [facility] Clopidogrel Bisulfate (Plavix) 75 mg PO DAILY [facility] Last Admin: 01/14/19 10:23 Dose: 75 mg Docusate Sodium (Colace) 100 mg PO BID [facility] Last Admin: 01/14/19 17:19 Dose: 100 mg Famotidine (Pepcid) 20 mg PO DAILY [facility] Last Admin: 01/14/19 10:23 Dose: 20 mg Furosemide (Lasix) 40 mg PO DAILY [facility] Last Admin: 01/14/19 10:22 Dose: 40 mg Heparin Sodium (Porcine) (Heparin) 5,000 units SC Q8 [facility] Last Admin: 01/14/19 21:19 Dose: 5,000 units Insulin Aspart (Novolog) 0 unit SC ACHS [facility]; Protocol Last Admin: 01/14/19 21:32 Dose: Not Given Losartan Potassium (Cozaar) 50 mg PO Q12 [facility] Last Admin: 01/14/19 21:19 Dose: 50 mg Metoprolol Tartrate (Lopressor) 50 mg PO BID [facility] Last Admin: 01/14/19 17:28 Dose: Not Given Rosuvastatin Calcium (Crestor) 10 mg PO HS [facility] Last Admin: 01/14/19 21:19 Dose: 10 mg Sitagliptin Phosphate (Januvia) 50 mg PO DAILY [facility] Last Admin: 01/14/19 10:23 Dose: 50 mg - Labs Labs: 01/14/19 07:46 01/14/19 07:46 PT 12.5 SECONDS (9.7-12.2) H 01/12/19 07:00 INR 1.1 01/12/19 07:00 APTT 77 SECONDS (21-34) H D 01/12/19 07:00 Assessment and Plan - Assessment and Plan (Free Text) Plan: Patient seen and evaluated personally by me. Plan of care d/w the emergency medicine medical director and as documented
--- NOTE | 2019-01-14 21:59 | CP.PCM.PN ---
Subjective - Date & Time of Evaluation Date of Evaluation: 01/14/19 Time of Evaluation: 21:59 - Subjective Subjective: Patient is now feeling better. Patient today was able to walk better. Labs reviewed Creatinine level is 2.0 Also mild elevation of the eosinophil count noted. Will monitor that. Underlying allergies cannot be ruled out. Will add inhaled corticosteroid and Spiriva. Continue the BiPAP. We will follow the patient Possibly he will get a bed tomorrow in the rehab and he will be discharged possibly tomorrow once a bed is available Objective - Vital Signs/Intake and Output Vital Signs (last 24 hours): Temp Pulse Resp BP Pulse Ox 97.9 F 72 18 103/69 98 01/14/19 15:00 01/14/19 20:22 01/14/19 15:00 01/14/19 17:27 01/14/19 15:00 Intake and Output: 01/14/19 01/15/19 18:59 06:59 Intake Total 500 400 Balance 500 400 - Medications Medications: Current Medications Aspirin (Ecotrin) 81 mg PO DAILY [facility] Last Admin: 01/14/19 10:22 Dose: 81 mg Clopidogrel Bisulfate (Plavix) 75 mg PO DAILY [facility] Last Admin: 01/14/19 10:23 Dose: 75 mg Docusate Sodium (Colace) 100 mg PO BID [facility] Last Admin: 01/14/19 17:19 Dose: 100 mg Famotidine (Pepcid) 20 mg PO DAILY [facility] Last Admin: 01/14/19 10:23 Dose: 20 mg Furosemide (Lasix) 40 mg PO DAILY [facility] Last Admin: 01/14/19 10:22 Dose: 40 mg Heparin Sodium (Porcine) (Heparin) 5,000 units SC Q8 [facility] Last Admin: 01/14/19 21:19 Dose: 5,000 units Insulin Aspart (Novolog) 0 unit SC ACHS [facility]; Protocol Last Admin: 01/14/19 21:32 Dose: Not Given Losartan Potassium (Cozaar) 50 mg PO Q12 [facility] Last Admin: 01/14/19 21:19 Dose: 50 mg Metoprolol Tartrate (Lopressor) 50 mg PO BID [facility] Last Admin: 01/14/19 17:28 Dose: Not Given Rosuvastatin Calcium (Crestor) 10 mg PO HS [facility] Last Admin: 01/14/19 21:19 Dose: 10 mg Sitagliptin Phosphate (Januvia) 50 mg PO DAILY [facility] Last Admin: 01/14/19 10:23 Dose: 50 mg - Labs Labs: 01/14/19 07:46 01/14/19 07:46 PT 12.5 SECONDS (9.7-12.2) H 01/12/19 07:00 INR 1.1 01/12/19 07:00 APTT 77 SECONDS (21-34) H D 01/12/19 07:00
[2019-01-14] MEDS ORDERED: Albuterol-Ipratrop 3 mg / 0.5 (3 ml) UD INH PRN (22:13)
[2019-01-15 06:46] LABS: BASO % 0.3 % (0.0-2.0); EOS # 1.1 K/uL (0.0-0.7); EOS % 8.7 % (0.0-4.0); HEMOGLOBIN 13.7 g/dL (12.0-18.0); LYMPH # 1.8 K/uL (1.0-4.3); LYMPH % 14.8 % (20.0-40.0); MEAN CELL VOLUME 92.4 fL (80.0-94.0); MEAN CORPUSCULAR HEMOGLOBIN 30.5 pg (27.0-31.0); MONO % 7.9 % (0.0-10.0); NEUT # 8.4 K/uL (1.8-7.0); NEUT % 68.3 % (50.0-75.0); RBC 4.5 Mil/uL (4.40-5.90); RED CELL DISTRIBUTION WIDTH 13.7 % (11.5-14.5); WHITE BLOOD COUNT 12.2 K/uL (4.8-10.8)
[2019-01-15 07:05] LABS: ALB/GLOB RATIO 1.3 (1.0-2.1); ALBUMIN 3.5 g/dL (3.5-5.0); CALCIUM 8.8 mg/dl (8.6-10.4)
[2019-01-15] MEDS ORDERED: Arformoterol 15 mcg/2 ml Inh Sol INH SCH (08:00)
[2019-01-15] MEDS ORDERED: Budesonide 0.5 mg/2 ml Inhal Susp UD INH SCH (08:00)
[2019-01-15] MEDS ORDERED: Fluticasone-Vilanterol 100/25mcg Diskus INH SCH (08:00)
[2019-01-15] MEDS ORDERED: Tiotropium 18 mcg Cap For Inhalation INH SCH (08:00)
[2019-01-15] MEDS: (Novolog) Insulin Aspart, Recombinant 100 u/ml 10 ml vial SC SCH ×3 (08:52→17:14)
--- NOTE | 2019-01-15 14:50 | CP.PCM.DIS ---
Provider - Provider Date of Admission: 01/08/19 09:58 Attending physician: Tejas Uribe MD Consults: 01/08/19 07:51 Cardiology Consult Stat Comment: Consulting Provider: Eduin Ludwig Consulting Physician: Eduin Ludwig Reason for Consult: CAD Time Spent in preparation of Discharge (in minutes): 45 Hospital Course - Lab Results Lab Results: Micro Results 01/12/19 11:22 Naris MRSA Culture - Final MRSA NOT DETECTED 01/08/19 07:35 Blood Blood Culture - Final NO GROWTH AFTER 5 DAYS 01/08/19 07:20 Blood Blood Culture - Final NO GROWTH AFTER 5 DAYS 01/08/19 07:20 Blood Gram Stain - Final TEST NOT PERFORMED 01/08/19 21:11 Urine,Sands Urine Culture - Final No Growth (<1,000 CFU/ML) 01/08/19 15:18 Naris MRSA Culture (Admit) - Final MRSA NOT DETECTED 01/08/19 09:34 Urine,Catheterized Urine Culture - Final No Growth (<1,000 CFU/ML) Most Recent Lab Values WBC 12.2 K/uL (4.8-10.8) H 01/15/19 06:38 RBC 4.50 Mil/uL (4.40-5.90) 01/15/19 06:38 Hgb 13.7 g/dL (12.0-18.0) 01/15/19 06:38 Hct 41.5 % (35.0-51.0) 01/15/19 06:38 MCV 92.4 fL (80.0-94.0) 01/15/19 06:38 MCH 30.5 pg (27.0-31.0) 01/15/19 06:38 MCHC 33.0 g/dL (33.0-37.0) 01/15/19 06:38 RDW 13.7 % (11.5-14.5) 01/15/19 06:38 Plt Count 217 K/uL (130-400) 01/15/19 06:38 MPV 8.0 fL (7.2-11.7) 01/15/19 06:38 Neut % (Auto) 68.3 % (50.0-75.0) 01/15/19 06:38 Lymph % (Auto) 14.8 % (20.0-40.0) L 01/15/19 06:38 [place] % (Auto) 7.9 % (0.0-10.0) 01/15/19 06:38 Eos % (Auto) 8.7 % (0.0-4.0) H 01/15/19 06:38 Baso % (Auto) 0.3 % (0.0-2.0) 01/15/19 06:38 Neut # (Auto) 8.4 K/uL (1.8-7.0) H 01/15/19 06:38 Lymph # (Auto) 1.8 K/uL (1.0-4.3) 01/15/19 06:38 [place] # (Auto) 1.0 K/uL (0.0-0.8) H 01/15/19 06:38 Eos # (Auto) 1.1 K/uL (0.0-0.7) H 01/15/19 06:38 Baso # (Auto) 0.0 K/uL (0.0-0.2) 01/15/19 06:38 Neutrophils % (Manual) 79 % (50-75) H 01/11/19 06:23 Band Neutrophils % 4 % (0-2) H 01/11/19 06:23 Lymphocytes % (Manual) 7 % (20-40) L 01/11/19 06:23 Monocytes % (Manual) 10 % (0-10) 01/11/19 06:23 Platelet Estimate Normal (NORMAL) 01/11/19 06:23 RBC Morphology Normal 01/10/19 03:02 Poikilocytosis (manual Slight 01/11/19 06:23 Ovalocytes Slight 01/11/19 06:23 [place] Cells Slight 01/11/19 06:23 PT 12.5 SECONDS (9.7-12.2) H 01/12/19 07:00 INR 1.1 01/12/19 07:00 APTT 77 SECONDS (21-34) H D 01/12/19 07:00 Puncture Site Rba 01/10/19 09:06 pCO2 44 mm/Hg (35-45) 01/10/19 09:06 pO2 73 mm/Hg (80-100) L 01/10/19 09:06 HCO3 29.5 mmol/L (21-28) H 01/10/19 09:06 ABG pH 7.45 (7.35-7.45) 01/10/19 09:06 ABG Total CO2 32.0 mmol/L (22-28) H 01/10/19 09:06 ABG O2 Saturation 96.1 % (95-98) 01/10/19 09:06 ABG Base Excess 5.9 mmol/L (-2.0-3.0) H 01/10/19 09:06 ABG Hemoglobin 11.9 g/dL (11.7-17.4) 01/10/19 09:06 ABG Carboxyhemoglobin 0.9 % (0.5-1.5) 01/10/19 09:06 POC ABG HHb (Measured) 3.8 % (0.0-5.0) 01/10/19 09:06 ABG Methemoglobin 0.5 % (0.0-3.0) 01/10/19 09:06 Álvaro Test Na 01/10/19 09:06 ABG Potassium 3.4 mmol/L (3.6-5.2) L 01/09/19 05:05 A-a O2 Difference 22.0 mm/Hg 01/10/19 09:06 Respiratory Index 0.3 01/10/19 09:06 Hgb O2 Saturation 94.8 % (95.0-98.0) L 01/10/19 09:06 Sodium 138.0 mmol/l (132-148) 01/09/19 05:05 Chloride 106.0 mmol/L (98-107) 01/09/19 05:05 Glucose 237 mg/dl (75-110) H 01/09/19 05:05 Lactate 1.2 mmol/L (0.7-2.1) 01/09/19 05:05 Vent Mode Cpap 01/09/19 13:30 Mechanical Rate 20 01/09/19 05:05 FiO2 21.0 % 01/10/19 09:06 Tidal Volume 400 01/09/19 05:05 PEEP 5 01/09/19 13:30 Pressure Support 10 01/09/19 13:30 Inspiratory BiPAP 18 01/08/19 09:33 Expiratory BiPAP 8 01/08/19 09:33 Crit Value Called To [place] 01/08/19 09:33 Crit Value Called By Jenni 01/08/19 09:33 Crit Value Read Back Y 01/08/19 09:33 Blood Gas Notified Time 939 01/08/19 09:33 Sodium 132 mmol/L (132-148) 01/15/19 06:38 Potassium 4.0 mmol/L (3.6-5.2) 01/15/19 06:38 Chloride 95 mmol/L (98-107) L 01/15/19 06:38 Carbon Dioxide 31 mmol/L (22-30) H 01/15/19 06:38 Anion Gap 10 (10-20) 01/15/19 06:38 BUN 48 mg/dL (9-20) H 01/15/19 06:38 Creatinine 1.9 mg/dL (0.8-1.5) H 01/15/19 06:38 Est GFR ( Amer) 41 01/15/19 06:38 Est GFR (Non-Af Amer) 34 01/15/19 06:38 POC Glucose (mg/dL) 321 mg/dL (65-110) H 01/15/19 11:06 Random Glucose 230 mg/dL (75-110) H 01/15/19 06:38 Lactic Acid 3.2 mmol/L (0.7-2.1) H 01/08/19 19:42 Calcium 8.8 mg/dl (8.6-10.4) 01/15/19 06:38 Phosphorus 4.0 mg/dL (2.5-4.5) 01/15/19 06:38 Magnesium 2.3 mg/dL (1.6-2.3) 01/15/19 06:38 Total Bilirubin 0.5 mg/dL (0.2-1.3) 01/15/19 06:38 AST 28 U/L (17-59) 01/15/19 06:38 ALT 37 U/L (21-72) 01/15/19 06:38 Alkaline Phosphatase 59 U/L (38-126) 01/15/19 06:38 Total Creatine Kinase 1358 U/L (55-170) H 01/10/19 03:02 CK-MB (Mass) 9.01 ng/mL (0.0-3.38) H 01/10/19 03:02 Troponin I 2.4000 ng/mL (0.00-0.120) H* 01/11/19 06:23 NT-Pro-B Natriuret Pep 347 pg/mL (0-900) 01/14/19 07:46 Total Protein 6.1 g/dL (6.3-8.3) L 01/15/19 06:38 Albumin 3.5 g/dL (3.5-5.0) 01/15/19 06:38 Globulin 2.6 gm/dL (2.2-3.9) 01/15/19 06:38 Albumin/Globulin Ratio 1.3 (1.0-2.1) 01/15/19 06:38 Procalcitonin 0.13 NG/ML (0.19-0.49) L 01/10/19 08:22 Arterial Blood Potassium 3.4 mmol/L (3.6-5.2) L 01/09/19 05:05 Urine Color Yellow (YELLOW) 01/08/19 09:35 Urine Clarity Clear (Clear) 01/08/19 09:35 Urine pH 5.0 (5.0-8.0) 01/08/19 09:35 Ur Specific [place] 1.009 (1.003-1.030) 01/08/19 09:35 Urine Protein 1+ mg/dL (NEGATIVE) H 01/08/19 09:35 Urine Glucose (UA) 1+ mg/dL (Normal) H 01/08/19 09:35 Urine Ketones Negative mg/dL (NEGATIVE) 01/08/19 09:35 Urine Blood 1+ (NEGATIVE) H 01/08/19 09:35 Urine Nitrate Negative (NEGATIVE) 01/08/19 09:35 Urine Bilirubin Negative (NEGATIVE) 01/08/19 09:35 Urine Urobilinogen Normal mg/dL (0.2-1.0) 01/08/19 09:35 Ur Leukocyte Esterase Neg Gil/uL (Negative) 01/08/19 09:35 Urine WBC (Auto) 1 /hpf (0-5) 01/08/19 09:35 Urine RBC (Auto) 7 /hpf (0-3) H 01/08/19 09:35 Influenza Typ A,B (EIA) Negative for flu a/b (NEGATIVE) 01/08/19 19:42 - Hospital Course Hospital Course: Chief complaint: Shortness of breath HPI: 78-year-old male with a history of heart disease, congestive heart failure, history of bronchitis, history of recently admitted to the hospital with a similar symptoms. Patient also has a history of hypertension, hyperlipidemia history of coronary artery bypass grafting in the past. 2 weeks ago patient was hospitalized with acute exacerbation of her bronchitis. He was given antibiotic and a corticosteroid. Patient completed the treatment. But now having come to the emergency room with worsening symptoms. 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 In the emergency room patient was evaluated, he was given multiple rounds of inhalers, corticosteroid, and Lasix, with no improvement. He started having increasing chest tightness. He was not intubated as an emergency as there was no improvement in the oxygenation. Patient needed present hospitalization to the intensive care unit. Past medical history: Hypertension, hyperlipidemia, CAD, status post bypass grafting. Surgical history includes a bypass grafting Allergies no known drug allergy Patient is a non-smoker. Nonalcoholic. Patient is compliant with medications. Family history significant for heart disease. On examination: Patient is severely respiratory distress. Intubated. Intensive care unit. Chest bilateral wheezing and tightness noted. Regular [place] noted. Nontender abdomen. No pedal edema X-ray showing evidence of CHF pattern. Labs reviewed ABG showing elevation of CO2. Assessment and recommendation: 78-year-old male with a history of hypertension heart disease and a history of heart failure. Patient admitted with the, Admitted with acute respiratory insufficiency, needing ventilation at this time. Patient will be closely monitored. ICU monitoring. DVT GI prophylaxis. Antibiotic for presumptive pneumonia. Cardiac enzymes monitoring, heart failure treatment. Cardiology evaluation and management. Ventilator management and will follow the patient Course in the hospital: Patient initially admitted to the intensive care unit with acute respiratory failure with hypercapnia. He was doing extremely well with these medications. Patient was started on intravenous IV antibiotic bronchodilators and inhaled corticosteroid as well as IV corticosteroids. Lasix was also given. Seen by privacy attorney. There was a mild positive troponin noted, with non-ST elevation [place]. Patient was extubated the following day. But 2 days later patient developed worsening shortness of breath, placed on BiPAP, and also started on intravenous Lasix. Over the next few days patient started improving markedly, he was able to stand up and walk he was continued to receive the BiPAP at nighttime. There was also slight increasing in the WBC noted, with mild eosinophilia. Started on low-dose corticosteroid. Inhaled corticosteroid. Bronchodilators. Singular. Patient is clinically stable. He will be discharged to the rehabilitation. I spoke to the patient's family in detail about the overall condition. Assessment and diagnosis: Patient is a 78-year-old male with history of CAD, diabetes, hypertension, hypercholesterolemia. Patient also has a history of suspected sleep apnea. Did not have any evaluation done. Admitted with acute decompensated heart failure. Also possible associated bronchial asthma. He will be discharged to the rehab and will follow up the patient. He will continue the BiPAP but night. He will continue the oxygen. Medications reviewed and will follow the patient Discharge Exam - Head Exam Head Exam: ATRAUMATIC, NORMAL INSPECTION Discharge Plan - Follow Up Plan Condition: GUARDED Disposition: TRANSF TO SNF Instructions: COPD Including Emphysema (DC), Heart Failure (DC) Referrals: Eduin Ludwig MD [Staff Provider] - Tejas Uribe MD [Staff Provider] -
[2019-01-15 15:40] VITALS: BP 110/65; RESP 18; TEMP 97.9; O2SAT 99
[2019-01-15 16:11] VITALS: PULSE 93
[2019-01-15] MEDS ORDERED: (Lantus) Insulin Glargine, Recombinant SC SCH (22:00)
[2019-01-16] MEDS ORDERED: Metoprolol Succinate 50 mg XL Tab PO SCH (10:00)
== END 2019-01-15 17:28 | DRG 208 ==
LOC: C.ER 05:42 → C.9I 09:58 → C.5S 01-12 11:27
PROVIDERS: ADMIT Internal Medicine; ATTEND Internal Medicine
PROC: 5A1945Z Respiratory Ventilation, 24-96 Consecutive Hours (ICD-10-PCS; principal; 2019-01-08)
PROC: 0BH17EZ Insertion of Endotracheal Airway into Trachea, Via Natural or Artificial Opening (ICD-10-PCS; 2019-01-08)
PROC: 5A09357 Assistance with Respiratory Ventilation, Less than 24 Consecutive Hours, Continuous Positive Airway Pressure (ICD-10-PCS; 2019-01-08)
PROC: 5A09557 Assistance with Respiratory Ventilation, Greater than 96 Consecutive Hours, Continuous Positive Airway Pressure (ICD-10-PCS; 2019-01-10)
DX: J44.0 Chronic obstructive pulmonary disease with (acute) lower respiratory infection (principal); I21.4 Non-ST elevation (NSTEMI) myocardial infarction; J96.02 Acute respiratory failure with hypercapnia; J18.9 Pneumonia, unspecified organism; N17.9 Acute kidney failure, unspecified; J44.1 Chronic obstructive pulmonary disease with (acute) exacerbation; I11.0 Hypertensive heart disease with heart failure; J84.10 Pulmonary fibrosis, unspecified; E11.69 Type 2 diabetes mellitus with other specified complication; I25.10 Atherosclerotic heart disease of native coronary artery without angina pectoris; E11.51 Type 2 diabetes mellitus with diabetic peripheral angiopathy without gangrene; E78.00 Pure hypercholesterolemia, unspecified; E78.5 Hyperlipidemia, unspecified; I77.819 Aortic ectasia, unspecified site; I50.9 Heart failure, unspecified; Z86.73 Personal history of transient ischemic attack (TIA), and cerebral infarction without residual deficits; Z95.1 Presence of aortocoronary bypass graft